=== PATIENT | male | born 1955 | race American Indian/Alaskan Native ===

== ENCOUNTER 2020-05-24 19:30 | Inpatient (IN) | payer MEDICARE, OTHER ==
--- NOTE | 2020-05-24 20:01 | Cat Scan Report ---
CT head/brain wo con INDICATION / CLINICAL INFORMATION: 65 years Male; slurred speech, blurred vision. TECHNIQUE: Routine CT head without contrast. All CT scans at this location are performed using CT dos e reduction for ALARA by means of automated exposure control. COMPARISON: None. FINDINGS: BRAIN / INTRACRANIAL CONTENTS: Small lacunar infarcts seen in the internal capsule region on the righ t, as well as the right thalamus. Age-indeterminate lacunar infarct is seen in the marc leftward of midline as well, in a position to a ffect cortical spinal tract. Well-circumscribed calcification is seen near the parietal-occipital sulcus on the right. This findin g is most likely of no clinical significance. Cavernous malformation might be consideration. Otherwise, no acute hemorrhage, mass effect, midline shift, hydrocephalus, or acute, large territori al infarct. No signs of significant atrophy or chronic infarct. There are mild areas of decreased attenuation in the white matter of the cerebral hemispheres. These are nonspecific findings and may be related to microangiopathy (hypertension, diabetes, atheroscleros is), given the patient's age. CRANIOCERVICAL JUNCTION: No significant abnormality. ORBITS: No significant abnormality of visualized orbits. SINUSES / MASTOIDS: Visualized paranasal sinuses and mastoid air cells are essentially clear. ADDITIONAL FINDINGS: Atherosclerotic disease is seen in the anterior circulation. IMPRESSION: 1. No focal mass, hemorrhage, hydrocephalus, or acute, large territorial infarct. 2. Lacunar-type infarcts as described above. Follow-up with diffusion imaging by MRI, as clinically w arranted. CODE STROKE: Exam Completed (MARINE SERVICES TECHNICIAN/CDT): 05/24/2020 6:46 PM Exam Reviewed (MARINE SERVICES TECHNICIAN/CDT): 6:52 PM Time of Communication (MARINE SERVICES TECHNICIAN/CDT): 6:56 PM Licensed Practitioner Receiving Report: Dr. Stark Signer Name: Joseph Soto MD, III Signed: 05/24/2020 7:56 PM Workstation Name: [facility] [place]
--- NOTE | 2020-05-24 20:06 | Emergency Department Report ---
ED Neuro Deficit HPI - General Chief Complaint: Neuro Symptoms/Deficit Stated Complaint: POSS STROKE Time Seen by Provider: 05/24/20 19:32 Source: patient, EMS Mode of arrival: Stretcher Limitations: No Limitations - History of Present Illness Initial Comments: 65-year-old male, history of hypertension, diabetes, presents to ED with slurred speech. Last known well time at 6 PM. Patient and family noticed that patient speech became slurred. He denies any extremity weakness or headache. Patient reports some intermittent blurred vision. Of note, patient lives with son. He reports his son tested positive for COVID-19 on yesterday. Patient denies any symptoms of cough, shortness of breath, vomiting. Patient denies receiving his COVID-19 vaccine. -: This evening Last Observed Normal: 18:00 Location: speech Presenting Symptoms: Present: Unable to Speak Clearly Place: home Severity: mild Improves With: none Worsens With: none On Anticoagulants: No Associated Symptoms: denies other symptoms. denies: headaches, shortness of breath - Related Data Allergies/Adverse Reactions: Allergies Allergy/AdvReac Type Severity Reaction Status Date / Time No Known Allergies Allergy Unverified 05/24/20 19:31 ED Review of Systems ROS: Stated complaint: POSS STROKE Other details as noted in HPI Comment: All other systems reviewed and negative Constitutional: denies: fever Eyes: vision change Respiratory: denies: cough Neurological: other (Reports slurred speech). denies: headache, weakness, numbness, paresthesias ED Neuro Physical Exam - General Limitations: No Limitations General appearance: alert, in no apparent distress Suspected Stroke: Yes - Head Head exam: Present: atraumatic, normocephalic - Eye Eye exam: Present: normal appearance, EOMI - ENT ENT exam: Present: mucous membranes moist - Neck Neck exam: Present: normal inspection - Respiratory Respiratory exam: Present: normal lung sounds bilaterally. Absent: respiratory distress - Cardiovascular Cardiovascular Exam: Present: regular rate, normal rhythm - GI/Abdominal GI/Abdominal exam: Present: soft. Absent: distended, tenderness - Neurological Exam Neurological exam: Present: alert, oriented X3 - NIHSS Assessment Interval: Baseline 1a. Level of Consciousness: alert/keenly responsive 1b. LOC Questions: answers both correctly 1c. LOC Commands: performs tasks correctly 2. Best Gaze: normal 3. Visual: no visual loss 4. Facial Palsy: normal symmetrical movement 5b. Motor Arm Right: amputation/joint fusion 5a. Motor Arm Left: no drift 6a. Motor Leg Left: no drift 6b. Motor Leg Right: no drift 7. Limb Ataxia: absent 8. Sensory: normal 9. Best Language: no aphasia 10. Dysarthria: mild/moderate dysarthria 11. Extinction/Inattention: no abnormality Total Score: 1 Stroke Severity: Minor Stroke - Psychiatric Psychiatric exam: Present: normal affect, normal mood - Skin Skin exam: Present: warm, dry, intact, normal color ED Course Vital Signs 05/24/20 05/24/20 05/24/20 20:04 20:05 20:16 Temperature 98.2 F Pulse Rate 99 H 98 H Respiratory 16 11 L Rate Blood Pressure 166/85 O2 Sat by Pulse 100 99 Oximetry 05/24/20 05/24/20 05/24/20 20:30 20:46 21:00 Temperature Pulse Rate 97 H 92 H 92 H Respiratory 20 21 22 Rate Blood Pressure 168/78 166/85 138/87 O2 Sat by Pulse 94 98 98 Oximetry 05/24/20 05/24/20 05/24/20 21:16 21:30 21:33 Temperature Pulse Rate 109 H 94 H Respiratory 22 16 18 Rate Blood Pressure 146/82 159/95 O2 Sat by Pulse 98 Oximetry 05/24/20 05/24/20 05/24/20 21:45 22:00 22:16 Temperature Pulse Rate 102 H 91 H 90 Respiratory 20 20 18 Rate Blood Pressure 161/69 161/69 161/69 O2 Sat by Pulse 99 97 Oximetry 05/24/20 05/24/20 05/24/20 22:30 23:00 23:38 Temperature 99.0 F Pulse Rate 90 92 H Respiratory 17 20 Rate Blood Pressure 161/69 161/69 O2 Sat by Pulse 98 Oximetry - Lab Data Result diagrams: 05/24/20 20:03 05/24/20 20:03 Lab Results 05/24/20 05/24/20 05/24/20 Range/Units 20:03 20:03 20:03 WBC 6.7 (4.5-11.0) K/mm3 RBC 4.05 (3.65-5.03) M/mm3 Hgb 11.3 L (11.8-15.2) gm/dl Hct 35.2 L (35.5-45.6) % MCV 87 (84-94) fl MCH 28 (28-32) pg MCHC 32 (32-34) % RDW 14.3 (13.2-15.2) % Plt Count 207 (140-440) K/mm3 Eos % (Auto) Modeling Director Add Manual Diff Complete Total Counted 100 Seg Neuts % (Manual) 56.0 (40.0-70.0) % Lymphocytes % (Manual) 11.0 L (13.4-35.0) % Monocytes % (Manual) 15.0 H (0.0-7.3) % Eosinophils % (Manual) 15.0 H (0.0-4.3) % Basophils % (Manual) 3.0 H (0.0-1.8) % Nucleated RBC % Not Reportable Seg Neutrophils # Man 3.8 (1.8-7.7) K/mm3 Band Neutrophils # 0.0 K/mm3 Lymphocytes # (Manual) 0.7 L (1.2-5.4) K/mm3 Abs React Lymphs (Man) 0.0 K/mm3 Monocytes # (Manual) 1.0 H (0.0-0.8) K/mm3 Eosinophils # (Manual) 1.0 H (0.0-0.4) K/mm3 Basophils # (Manual) 0.2 H (0.0-0.1) K/mm3 Metamyelocytes # 0.0 K/mm3 Myelocytes # 0.0 K/mm3 Promyelocytes # 0.0 K/mm3 Blast Cells # 0.0 K/mm3 WBC Morphology Not Reportable Hypersegmented Neuts Not Reportable Hyposegmented Neuts Not Reportable Hypogranular Neuts Not Reportable Smudge Cells Not Reportable Toxic Granulation Not Reportable Toxic Vacuolation Not Reportable Dohle Bodies Not Reportable Pelger-Huet Anomaly Not Reportable Fercho Rods Not Reportable Platelet Estimate Not Reportable Clumped Platelets Not Reportable Plt Clumps, EDTA Not Reportable Large Platelets Not Reportable Giant Platelets Not Reportable Platelet Satelliting Not Reportable Plt Morphology Comment Not Reportable RBC Morphology Normal Dimorphic RBCs Not Reportable Polychromasia Not Reportable Hypochromasia Not Reportable Poikilocytosis Not Reportable Anisocytosis Not Reportable Microcytosis Not Reportable Macrocytosis Not Reportable Spherocytes Not Reportable Pappenheimer Bodies Not Reportable Sickle Cells Not Reportable Target Cells Not Reportable Tear Drop Cells Not Reportable Ovalocytes Not Reportable Helmet Cells Not Reportable Brum[place] Bodies Not Reportable [place] Rings Not Reportable Marne Cells Not Reportable Bite Cells Not Reportable Crenated Cell Not Reportable Elliptocytes Not Reportable Acanthocytes (Spur) Not Reportable Rouleaux Not Reportable Hemoglobin C Crystals Not Reportable Schistocytes Not Reportable Malaria parasites Not Reportable Johnson Bodies Not Reportable Hem Pathologist Commnt No PT 12.6 (12.2-14.9) Sec. INR 0.96 (0.87-1.13) APTT 28.7 (24.2-36.6) Sec. Thrombin Time 16.9 (15.1-19.6) Sec. Sodium 135 L (137-145) mmol/L Potassium 4.7 (3.6-5.0) mmol/L Chloride 98.9 (98-107) mmol/L Carbon Dioxide 28 (22-30) mmol/L Anion Gap 13 mmol/L BUN 20 (9-20) mg/dL Creatinine 1.1 (0.8-1.3) mg/dL Estimated GFR > 60 ml/min BUN/Creatinine Ratio 18 % Glucose 192 H (75-100) mg/dL Calcium 9.5 (8.4-10.2) mg/dL Total Creatine Kinase 124 (55-170) units/L CK-MB (CK-2) 2.9 (0.0-4.0) ng/mL CK-MB (CK-2) Rel Index 2.3 (0-4) Troponin T 0.015 (0.00-0.029) ng/mL - EKG Data -: EKG Interpreted by Al EKG shows normal: sinus rhythm, axis, intervals, QRS complexes, ST-T waves Rate: normal Interpretation: no acute changes - Radiology Data Radiology results: report reviewed, image reviewed - Medical Decision Making 65-year-old male presents to ED with slurred speech and blurred vision. Patient seen and evaluated immediately by teleneurologist who does not recommend TPA at this time due to NIH of only 1. CT head negative for any acute findings. Patient has no extremity weakness present. Patient will be admitted for further work-up by hospitalist, Dr. Guadarrama. - Differential Diagnosis CVA, TIA, COVID-19 Critical care attestation.: If time is entered above; I have spent that time in minutes in the direct care of this critically ill patient, excluding procedure time. ED Disposition Clinical Impression: CVA (cerebral vascular accident), Suspected 2019 novel coronavirus infection Disposition: OP ADMIT IP TO THIS HOSP Is pt being admited?: Yes Condition: Stable Time of Disposition: 21:49
[2020-05-24 20:12] LABS: Hematocrit 35.2 % (35.5-45.6); Hemoglobin 11.3 gm/dl (11.8-15.2); Mean Corpuscular HGB Conc 32 % (32-34); Mean Corpuscular Volume 87 fl (84-94); Platelet Count 207 K/mm3 (140-440); Red Blood Count 4.05 M/mm3 (3.65-5.03); Red Cell Distribution Width 14.3 % (13.2-15.2)
[2020-05-24 20:27] LABS: Partial Thromboplastin Time 28.7 Sec. (24.2-36.6); Thrombin Time 16.9 Sec. (15.1-19.6)
[2020-05-24 20:31] LABS: Creatine Kinase MB 2.9 ng/mL (0.0-4.0)
[2020-05-24 20:32] LABS: BUN/Creatinine Ratio 18; Blood Urea Nitrogen 20 mg/dL (9-20); Calcium 9.5 mg/dL (8.4-10.2); Hemolysis Index 0
[2020-05-24 20:36] LABS: INR 0.96 (0.87-1.13)
[2020-05-24 21:13] LABS: RBC Morphology Normal; Total Cells Counted 100
[2020-05-24 22:09] LABS: Bacteria,Urine 1+ /HPF (Negative); Bilirubin,Urine NEG (Negative); Blood,Urine NEG (Negative); Color,Urine Straw (Yellow); Mucus,Urine FEW /HPF; Urobilinogen,Urine < 2.0 mg/dL (<2.0)
[2020-05-24] MEDS ORDERED: MAGNESIUM HYDROXIDE (MOM) ORAL LIQD UDC PO PRN ×2 (22:27)
[2020-05-24] MEDS ORDERED: PROMETHAZINE 25 MG RECT SUPP PR PRN (22:27)
[2020-05-24] MEDS ORDERED: DEXTROSE 50% IN WATER (25GM) 50 ML SYRINGE IV PRN (22:27)
[2020-05-24] MEDS ORDERED: MORPHINE 2 MG/1 ML INJ IV PRN ×2 (22:27)
[2020-05-24] MEDS ORDERED: ACETAMINOPHEN 325 MG TAB PO PRN (22:27)
[2020-05-24] MEDS ORDERED: METOCLOPRAMIDE 10 MG TAB PO PRN (22:27)
[2020-05-24] MEDS ORDERED: ONDANSETRON 4 MG/2 ML INJ IV PRN ×2 (22:27)
--- NOTE | 2020-05-24 22:54 | History and Physical Report ---
History of Present Illness Date of examination: 05/24/20 Date of admission: 05/24/20 21:59 Chief complaint: Slurred Speech History of present illness: 65-year-old male with known history of hypertension and diabetes mellitus presents to the emergency room today with complaints of slurred speech. Last well-known time was about 6 PM today. Patient's family had noticed changes in his speech and therefore was brought to the emergency room. He denies any fever or chills no headache or dizziness no diaphoresis, no chest pain or shortness of breath, no nausea vomiting, no diarrhea,, no hematuria or dysuria. Patient complains of intermittent blurry vision. He denies any weakness. Patient denies any recent travel but had been exposed to his son who tested COVI D-19 positive yesterday. Work-up in the emergency room so far has been unremarkable. Patient was evaluated by the neurologist and was deemed not to be a TPA candidate. Patient is being admitted for CVA work-up. Past History Past Medical History: diabetes, hypertension Past Surgical History: No surgical history Social history: no significant social history Family history: no significant family history Medications and Allergies Allergies Allergy/AdvReac Type Severity Reaction Status Date / Time No Known Allergies Allergy Unverified 05/24/20 19:31 Review of Systems Constitutional: no fever, no chills Ears, nose, mouth and throat: no nasal congestion, no sore throat Cardiovascular: no chest pain, no palpitations Respiratory: no cough, no shortness of breath Gastrointestinal: no abdominal pain, no nausea, no vomiting, no diarrhea Genitourinary Male: no dysuria, no hematuria, no nocturia Musculoskeletal: no neck pain, no low back pain Integumentary: no rash, no pruritis Neurological: change in speech, no headaches, no confusion Psychiatric: no anxiety, no depression Exam - Constitutional Vitals: Temp Pulse Resp BP Pulse Ox 98.2 F 90 18 161/69 97 05/24/20 20:05 05/24/20 22:16 05/24/20 22:16 05/24/20 22:16 05/24/20 22:16 General appearance: Present: no acute distress, well-nourished - EENT Eyes: Present: PERRL, EOM intact. Absent: scleral icterus ENT: hearing intact, clear oral mucosa, dentition normal - Neck Neck: Present: supple, normal ROM - Respiratory Respiratory effort: normal Respiratory: bilateral: CTA - Cardiovascular Rhythm: regular Heart Sounds: Present: S1 & S2. Absent: gallop, systolic murmur, diastolic murmur, rub, click - Extremities Extremities: no ischemia, pulses intact, pulses symmetrical, No edema, normal temperature, normal color, Full ROM Peripheral Pulses: within normal limits - Abdominal General gastrointestinal: Present: soft, non-tender, non-distended, normal bowel sounds. Absent: mass - Integumentary Integumentary: Present: clear, warm, dry. Absent: rash - Musculoskeletal Musculoskeletal: strength equal bilaterally - Psychiatric Psychiatric: appropriate mood/affect, intact judgment & insight, memory intact, cooperative - Neurologic Neurologic: CNII-XII intact, no moves all extremities, other (Fluent Speech.) HEART Score - HEART Score Troponin: Troponin T 0.015 ng/mL (0.00-0.029) 05/24/20 20:03 Results - Labs CBC & Chem 7: 05/24/20 20:03 05/24/20 20:03 Labs: Abnormal lab results 05/24/20 05/24/20 Range/Units 20:03 20:03 Hgb 11.3 L (11.8-15.2) gm/dl Hct 35.2 L (35.5-45.6) % Lymphocytes % (Manual) 11.0 L (13.4-35.0) % Monocytes % (Manual) 15.0 H (0.0-7.3) % Eosinophils % (Manual) 15.0 H (0.0-4.3) % Basophils % (Manual) 3.0 H (0.0-1.8) % Lymphocytes # (Manual) 0.7 L (1.2-5.4) K/mm3 Monocytes # (Manual) 1.0 H (0.0-0.8) K/mm3 Eosinophils # (Manual) 1.0 H (0.0-0.4) K/mm3 Basophils # (Manual) 0.2 H (0.0-0.1) K/mm3 Sodium 135 L (137-145) mmol/L Glucose 192 H (75-100) mg/dL Assessment and Plan - Patient Problems (1) CVA (cerebral vascular accident) Current Visit: Yes Status: Acute Plan to address problem: We will admit patient and placed on telemetry. Patient started on daily aspirin and statin. We will schedule for MRI of the brain and carotid Doppler. Consult placed to neurology for evaluation. (2) Hypertension Current Visit: Yes Status: Acute Plan to address problem: We will resume routine home medications and monitor vital signs closely. (3) Diabetes mellitus Current Visit: Yes Status: Acute Plan to address problem: We will monitor Accu-Cheks closely. And placed on sliding scale insulin. (4) Suspected 2019 novel coronavirus infection Current Visit: Yes Status: Acute Plan to address problem: Son had tested positive for COVID-19 yesterday. We will schedule patient for Covid test. (5) DVT prophylaxis Current Visit: Yes Status: Acute Plan to address problem: Patient placed on subcutaneous Lovenox. (6) Full code status Current Visit: Yes Status: Acute Plan to address problem: Patient is a full code.
--- NOTE | 2020-05-24 22:59 | Consultation ---
History of Present Illness History of present illness: [facility] Consult Note # Demographics Consult Type: Acute Stroke Level 2 (4.5-24 hrs) Patient Location: Emergency Room First Name: Dmitry Last Name: Sharath Brooks Age: 65 Gender: Male Time of Initial Page ( Time): 05/24/2020, 19:22 Time of Return Call ( Time): 05/24/2020, 19:23 # HPI History: 65 year-old male presents to the ED after developing slurred speech, right facial weakness, and dizziness at about 6 PM. Upon arrival to the ED, his NIHSS is [address] is negative for acute pathology. # Scores Time of exam and NIHSS (): 05/24/2020, 19:31 Level of Consciousness 1a: [0] = Alert; keenly responsive LOC Questions 1b: [0] = Answers both questions correctly LOC Commands 1c: [0] = Performs both tasks correctly Best Gaze 2: [0] = Normal Visual 3: [0] = No visual loss Facial Palsy 4: [0] = Normal symmetrical movements Motor Arm Left 5a: [0] = No drift Motor Arm Right 5b: [0] = No drift Motor Leg Left 6a: [0] = No drift Motor Leg Right 6b: [0] = No drift Limb Ataxia 7: [0] = Absent Sensory 8: [0] = Normal Best Language 9: [0] = No aphasia Dysarthria 10: [1] = [id number] dysarthria Extinction and Inattention 11: [0] = No abnormality NIHSS Total: 1 # Exam Vitals: vital signs reviewed # PMH-FH-SH Past Medical History: Diabetes, hypertension # Data Head CT: no bleed, per radiologist read # Assessment Impression: Dysarthria - unclear etiology, cannot exclude TIA, minor stroke, or stroke mimic # Plan Thrombolytic/Intervention: NOT IV Thrombolytic or IA Intervention Thrombolytic Exclusion (< 3 hour window): non-disabling deficit Intraarterial Exclusion: non-disabling Labs: CBC, comprehensive metabolic panel, hemoglobin A1c, lipid panel Imaging: (urgency: routine admission): If dysarthria persists without clear cause, consider brain MRI. Medication: aspirin 81 mg daily, start statin with goal of LDL < 70 Other: permissive hypertension, telemetry monitoring, I have discussed my recommendations with the referring provider Disposition: admit Past History Past Medical History: diabetes, hypertension Past Surgical History: No surgical history Social history: no significant social history Family history: no significant family history Medications and Allergies Allergies Allergy/AdvReac Type Severity Reaction Status Date / Time No Known Allergies Allergy Unverified 05/24/20 19:31 Active Meds: Active Medications Acetaminophen (Acetaminophen 325 Mg Tab) 650 mg PO Q4H PRN PRN Reason: Pain, Mild (1-3) Aspirin (Aspirin 325 Mg Tab) 325 mg PO QDAY FARZAD Atorvastatin Calcium (Atorvastatin 40 Mg Tab) 40 mg PO QHS FARZAD Bisacodyl (Bisacodyl 10 Mg Rect Supp) 10 mg NC QDAY PRN PRN Reason: Constipation Dextrose (Dextrose 50% In Water (25gm) 50 Ml Syringe) 0 ml IV Q30MIN PRN; Protocol PRN Reason: Hypoglycemia Enoxaparin Sodium (Enoxaparin 40 Mg/0.4 Ml Inj) 40 mg SUB-Q QDAY@2200 FARZAD; Protocol Insulin Human Lispro (Insulin Lispro 100 Unit/Ml) 0 unit SUB-Q ACHS FARZAD; Protocol Magnesium Hydroxide (Magnesium Hydroxide (Mom) Oral Liqd Udc) 30 ml PO Q4H PRN PRN Reason: Constipation Metoclopramide HCl (Metoclopramide 10 Mg Tab) 10 mg PO Q6H PRN PRN Reason: Nausea And Vomiting Morphine Sulfate (Morphine 2 Mg/1 Ml Inj) 2 mg IV Q4H PRN PRN Reason: Pain, Moderate (4-6) Ondansetron HCl (Ondansetron 4 Mg/2 Ml Inj) 4 mg IV Q8H PRN PRN Reason: Nausea And Vomiting Promethazine HCl (Promethazine 25 Mg Rect Supp) 25 mg NC Q6H PRN PRN Reason: Nausea And Vomiting Sodium Chloride (Sodium Chloride 0.9% 10 Ml Flush Syringe) 10 ml IV BID FARZAD Sodium Chloride (Sodium Chloride 0.9% 10 Ml Flush Syringe) 10 ml IV PRN PRN PRN Reason: LINE FLUSH Physical Examination - Vital Signs Vital Signs: Vital Signs Pulse Resp Pulse Ox 99 H 16 100 05/24/20 20:04 05/24/20 20:04 05/24/20 20:04 Results - Laboratory Findings CBC and BMP: 05/24/20 20:03 05/24/20 20:03 Abnormal Lab Findings: Abnormal Labs 05/24/20 05/24/20 20:03 20:03 Hgb 11.3 L Hct 35.2 L Lymphocytes % (Manual) 11.0 L Monocytes % (Manual) 15.0 H Eosinophils % (Manual) 15.0 H Basophils % (Manual) 3.0 H Lymphocytes # (Manual) 0.7 L Monocytes # (Manual) 1.0 H Eosinophils # (Manual) 1.0 H Basophils # (Manual) 0.2 H Sodium 135 L Glucose 192 H
[2020-05-25] MEDS: ACETAMINOPHEN 325 MG TAB PO PRN (05:14)
[2020-05-25 08:07] LABS: Hematocrit 33.6 % (35.5-45.6); Hemoglobin 10.9 gm/dl (11.8-15.2); Mean Corpuscular HGB Conc 32 % (32-34); Mean Corpuscular Volume 86 fl (84-94); Platelet Count 212 K/mm3 (140-440); Red Blood Count 3.92 M/mm3 (3.65-5.03); Red Cell Distribution Width 14.1 % (13.2-15.2)
[2020-05-25] MEDS: INSULIN LISPRO 100 UNIT/ML SUB-Q SCH ×4 (08:23→23:40)
[2020-05-25 08:25] LABS: BUN/Creatinine Ratio 15; Blood Urea Nitrogen 15 mg/dL (9-20); Calcium 9.2 mg/dL (8.4-10.2); Chol/HDL Ratio 1.47 %; HDL Cholesterol 72 mg/dL (40-59); Hemolysis Index 11; LDL Cholesterol,Direct 35 mg/dL (50-130)
--- NOTE | 2020-05-25 09:08 | Progress Note ---
Assessment and Plan Assessment and plan: Acute CVA. Hypertension DM type 2 Suspected COVID PNA 05/25. F/U MRI brain and carotid US. Cont. ASA and Lipitor. PT eval. follow-up Covid testing. Start dexamethasone empirically until Covid testing resulted. History Interval history: No new issues Hospitalist Physical - Constitutional Vitals: Temp Pulse Resp BP Pulse Ox 101.9 F H 127 H 20 162/92 97 05/25/20 05:00 05/25/20 05:00 05/25/20 05:00 05/25/20 05:00 05/25/20 05:00 General appearance: Present: no acute distress, well-nourished - EENT Eyes: Present: PERRL, EOM intact ENT: hearing intact, clear oral mucosa, dentition normal - Neck Neck: Present: supple, normal ROM - Respiratory Respiratory effort: normal Respiratory: bilateral: CTA - Cardiovascular Rhythm: regular Heart Sounds: Present: S1 & S2. Absent: gallop, rub - Extremities Extremities: no ischemia, No edema, Full ROM - Abdominal General gastrointestinal: soft, non-tender, non-distended, normal bowel sounds - Integumentary Integumentary: Present: clear, warm, dry - Neurologic Neurologic: CNII-XII intact, moves all extremities HEART Score - HEART Score Troponin: Troponin T 0.015 ng/mL (0.00-0.029) 05/24/20 20:03 Results - Labs CBC & Chem 7: 05/25/20 07:23 05/25/20 07:23 Labs: Laboratory Last Values WBC 7.9 K/mm3 (4.5-11.0) 05/25/20 07:23 RBC 3.92 M/mm3 (3.65-5.03) 05/25/20 07:23 Hgb 10.9 gm/dl (11.8-15.2) L 05/25/20 07:23 Hct 33.6 % (35.5-45.6) L 05/25/20 07:23 MCV 86 fl (84-94) 05/25/20 07:23 MCH 28 pg (28-32) 05/25/20 07:23 MCHC 32 % (32-34) 05/25/20 07:23 RDW 14.1 % (13.2-15.2) 05/25/20 07:23 Plt Count 212 K/mm3 (140-440) 05/25/20 07:23 [place] % (Auto) [employer] 05/25/20 07:23 Eos % (Auto) [employer] 05/24/20 20:03 Add Manual Diff Complete 05/24/20 20:03 Total Counted 100 05/24/20 20:03 Seg Neuts % (Manual) 56.0 % (40.0-70.0) 05/24/20 20:03 Lymphocytes % (Manual) 11.0 % (13.4-35.0) L 05/24/20 20:03 Monocytes % (Manual) 15.0 % (0.0-7.3) H 05/24/20 20:03 Eosinophils % (Manual) 15.0 % (0.0-4.3) H 05/24/20 20:03 Basophils % (Manual) 3.0 % (0.0-1.8) H 05/24/20 20:03 Nucleated RBC % Not Reportable 05/24/20 20:03 Seg Neutrophils # Man 3.8 K/mm3 (1.8-7.7) 05/24/20 20:03 Band Neutrophils # 0.0 K/mm3 05/24/20 20:03 Lymphocytes # (Manual) 0.7 K/mm3 (1.2-5.4) L 05/24/20 20:03 Abs React Lymphs (Man) 0.0 K/mm3 05/24/20 20:03 Monocytes # (Manual) 1.0 K/mm3 (0.0-0.8) H 05/24/20 20:03 Eosinophils # (Manual) 1.0 K/mm3 (0.0-0.4) H 05/24/20 20:03 Basophils # (Manual) 0.2 K/mm3 (0.0-0.1) H 05/24/20 20:03 Metamyelocytes # 0.0 K/mm3 05/24/20 20:03 Myelocytes # 0.0 K/mm3 05/24/20 20:03 Promyelocytes # 0.0 K/mm3 05/24/20 20:03 Blast Cells # 0.0 K/mm3 05/24/20 20:03 WBC Morphology Not Reportable 05/24/20 20:03 Hypersegmented Neuts Not Reportable 05/24/20 20:03 Hyposegmented Neuts Not Reportable 05/24/20 20:03 Hypogranular Neuts Not Reportable 05/24/20 20:03 Smudge Cells Not Reportable 05/24/20 20:03 Toxic Granulation Not Reportable 05/24/20 20:03 Toxic Vacuolation Not Reportable 05/24/20 20:03 Dohle Bodies Not Reportable 05/24/20 20:03 Pelger-Huet Anomaly Not Reportable 05/24/20 20:03 Fercho Rods Not Reportable 05/24/20 20:03 Platelet Estimate Not Reportable 05/24/20 20:03 Clumped Platelets Not Reportable 05/24/20 20:03 Plt Clumps, EDTA Not Reportable 05/24/20 20:03 Large Platelets Not Reportable 05/24/20 20:03 Giant Platelets Not Reportable 05/24/20 20:03 Platelet Satelliting Not Reportable 05/24/20 20:03 Plt Morphology Comment Not Reportable 05/24/20 20:03 RBC Morphology Normal 05/24/20 20:03 Dimorphic RBCs Not Reportable 05/24/20 20:03 Polychromasia Not Reportable 05/24/20 20:03 Hypochromasia Not Reportable 05/24/20 20:03 Poikilocytosis Not Reportable 05/24/20 20:03 Anisocytosis Not Reportable 05/24/20 20:03 Microcytosis Not Reportable 05/24/20 20:03 Macrocytosis Not Reportable 05/24/20 20:03 Spherocytes Not Reportable 05/24/20 20:03 Pappenheimer Bodies Not Reportable 05/24/20 20:03 Sickle Cells Not Reportable 05/24/20 20:03 Target Cells Not Reportable 05/24/20 20:03 Tear Drop Cells Not Reportable 05/24/20 20:03 Ovalocytes Not Reportable 05/24/20 20:03 Helmet Cells Not Reportable 05/24/20 20:03 Brumfield-Bullard Bodies Not Reportable 05/24/20 20:03 [place] Rings Not Reportable 05/24/20 20:03 [place] Cells Not Reportable 05/24/20 20:03 Bite Cells Not Reportable 05/24/20 20:03 Crenated Cell Not Reportable 05/24/20 20:03 Elliptocytes Not Reportable 05/24/20 20:03 Acanthocytes (Spur) Not Reportable 05/24/20 20:03 Rouleaux Not Reportable 05/24/20 20:03 Hemoglobin C Crystals Not Reportable 05/24/20 20:03 Schistocytes Not Reportable 05/24/20 20:03 Malaria parasites Not Reportable 05/24/20 20:03 Johnson Bodies Not Reportable 05/24/20 20:03 Hem Pathologist Commnt No 05/24/20 20:03 PT 13.0 Sec. (12.2-14.9) 05/25/20 07:23 INR 1.00 (0.87-1.13) 05/25/20 07:23 APTT 28.7 Sec. (24.2-36.6) 05/24/20 20:03 Thrombin Time 16.9 Sec. (15.1-19.6) 05/24/20 20:03 Sodium 134 mmol/L (137-145) L 05/25/20 07:23 Potassium 4.5 mmol/L (3.6-5.0) 05/25/20 07:23 Chloride 98.8 mmol/L (98-107) 05/25/20 07:23 Carbon Dioxide 24 mmol/L (22-30) 05/25/20 07:23 Anion Gap 16 mmol/L 05/25/20 07:23 BUN 15 mg/dL (9-20) 05/25/20 07:23 Creatinine 1.0 mg/dL (0.8-1.3) 05/25/20 07:23 Estimated GFR > 60 ml/min 05/25/20 07:23 BUN/Creatinine Ratio 15 % 05/25/20 07:23 Glucose 190 mg/dL (75-100) H 05/25/20 07:23 POC Glucose 76 mg/dL (70-105) 05/25/20 00:37 Calcium 9.2 mg/dL (8.4-10.2) 05/25/20 07:23 Total Creatine Kinase 124 units/L (55-170) 05/24/20 20:03 CK-MB (CK-2) 2.9 ng/mL (0.0-4.0) 05/24/20 20:03 CK-MB (CK-2) Rel Index 2.3 (0-4) 05/24/20 20:03 Troponin T 0.015 ng/mL (0.00-0.029) 05/24/20 20:03 Triglycerides 29 mg/dL (2-149) 05/25/20 07:23 Cholesterol 106 mg/dL (50-199) 05/25/20 07:23 LDL Cholesterol Direct 35 mg/dL (50-130) L 05/25/20 07:23 HDL Cholesterol 72 mg/dL (40-59) H 05/25/20 07:23 Cholesterol/HDL Ratio 1.47 % 05/25/20 07:23 Urine Color Straw (Yellow) 05/24/20 Unknown Urine Turbidity Clear (Clear) 05/24/20 Unknown Urine pH 7.0 (5.0-7.0) 05/24/20 Unknown Ur Specific [place] 1.009 (1.003-1.030) 05/24/20 Unknown Urine Protein 30 mg/dl mg/dL (Negative) 05/24/20 Unknown Urine Glucose (UA) 150 mg/dL (Negative) 05/24/20 Unknown Urine Ketones Neg mg/dL (Negative) 05/24/20 Unknown Urine Blood Neg (Negative) 05/24/20 Unknown Urine Nitrite Neg (Negative) 05/24/20 Unknown Urine Bilirubin Neg (Negative) 05/24/20 Unknown Urine Urobilinogen < 2.0 mg/dL (<2.0) 05/24/20 Unknown Ur Leukocyte Esterase Neg (Negative) 05/24/20 Unknown Urine WBC (Auto) 1.0 /HPF (0.0-6.0) 05/24/20 Unknown Urine RBC (Auto) 2.0 /HPF (0.0-6.0) 05/24/20 Unknown U Epithel Cells (Auto) < 1.0 /HPF (0-13.0) 05/24/20 Unknown Urine Bacteria (Auto) 1+ /HPF (Negative) 05/24/20 Unknown Urine Mucus Few /HPF 05/24/20 Unknown Juarez/IV: Voiding Method Toilet Active Medications - Current Medications Current Medications: Generic Name Dose Route Start Last Admin Trade Name Freq PRN Reason Stop Dose Admin Acetaminophen 650 mg 05/24/20 22:27 05/25/20 05:14 Acetaminophen 325 Mg Tab PO 650 mg Q4H PRN Administration Pain, Mild (1-3) Aspirin 325 mg 04/18/21 10:00 Aspirin 325 Mg Tab PO QDAY [facility] Atorvastatin Calcium 40 mg 05/25/20 22:00 Atorvastatin 40 Mg Tab PO QHS [facility] Bisacodyl 10 mg 05/24/20 22:27 Bisacodyl 10 Mg Rect Supp ND QDAY PRN Constipation Dextrose 0 ml 05/24/20 22:27 Dextrose 50% In Water (25gm) 50 Ml Syringe IV Q30MIN PRN Hypoglycemia Protocol Enoxaparin Sodium 40 mg 05/25/20 22:00 Enoxaparin 40 Mg/0.4 Ml Inj SUB-Q QDAY@2200 [facility] Protocol Insulin Human Lispro 0 unit 05/25/20 07:30 05/25/20 08:23 Insulin Lispro 100 Unit/Ml SUB-Q 2 unit ACHS [facility] Administration Protocol Magnesium Hydroxide 30 ml 05/24/20 22:27 Magnesium Hydroxide (Mom) Oral Liqd Udc PO Q4H PRN Constipation Metoclopramide HCl 10 mg 05/24/20 22:27 Metoclopramide 10 Mg Tab PO Q6H PRN Nausea And Vomiting Morphine Sulfate 2 mg 05/24/20 22:27 Morphine 2 Mg/1 Ml Inj IV Q4H PRN Pain, Moderate (4-6) Ondansetron HCl 4 mg 05/24/20 22:27 Ondansetron 4 Mg/2 Ml Inj IV Q8H PRN Nausea And Vomiting Promethazine HCl 25 mg 05/24/20 22:27 Promethazine 25 Mg Rect Supp ND Q6H PRN Nausea And Vomiting Sodium Chloride 10 ml 05/25/20 10:00 Sodium Chloride 0.9% 10 Ml Flush Syringe IV BID [facility] Sodium Chloride 10 ml 05/24/20 22:27 Sodium Chloride 0.9% 10 Ml Flush Syringe IV PRN PRN LINE FLUSH
[2020-05-25 10:33] LABS: Platelet Estimate Consistent w Auto; RBC Morphology Normal; Total Cells Counted 100
[2020-05-25] MEDS: dexAMETHasone 4 MG/ML VIAL IV SCH (11:33)
[2020-05-25] MEDS: ASPIRIN 325 MG TAB PO SCH (11:35)
--- NOTE | 2020-05-25 18:45 | Vascular Lab Report ---
"DUPLEX DOPPLER ULTRASOUND CAROTID, BILATERAL INDICATION / CLINICAL INFORMATION: MAIN. COMPARISON: None available. FINDINGS: RIGHT CAROTID: - PLAQUE ESTIMATE (%): < 50% - CCA velocity: 123 cm/sec. - ICA peak systolic velocity: 135 cm/sec. - ICA/CCA PSV Ratio: 1.2 Right Vertebral Artery: Antegrade flow. LEFT CAROTID: - PLAQUE ESTIMATE: < 50% - CCA velocity: 131 cm/sec. - ICA peak systolic velocity: 139 cm/sec. - ICA/CCA PSV Ratio: 1.1 Left Vertebral Artery: Antegrade flow. IMPRESSION: 1. Right Internal Carotid Artery: Less than 50% diameter stenosis. 2. Left Internal Carotid Artery: Less than 50% diameter stenosis. Velocity criteria are extrapolated from diameter data as defined by the Society of Radiologists [place] [facility] Consensus Conference, Radiology 2003; 229;[id number]. Degree of || ICA PSV || Plaque || ICA/CCA Stenosis (%) || (cm/sec) || estimate (%) || PSV Ratio Normal ............. || ...<125........... || ...None......... || ...<2.0 <50................... || ...<125........... || ......<50......... || ...<2.0 50-69................ || ..125-230...... || ......>50......... || 2.0-4.0 >70 but <100... || >230.............. || .......>50........ || ...>4.0 Near occlusion || High/low/none || ...visible....... || variable Total occlusion || ....None........... || ..no lumen... || ....N/A Signer Name: Vito FERNANDES Signed: 05/25/2020 6:41 PM Workstation Name: [email or web address]"
[2020-05-25] MEDS: ENOXAPARIN 40 MG/0.4 ML INJ SUB-Q SCH (22:48)
[2020-05-26] MEDS: INSULIN LISPRO 100 UNIT/ML SUB-Q SCH ×4 (07:30→23:09)
--- NOTE | 2020-05-26 08:24 | Progress Note ---
Assessment and Plan Assessment and plan: Acute CVA. Hypertension DM type 2 Suspected COVID PNA 05/25. F/U MRI brain and carotid US. Cont. ASA and Lipitor. PT eval. follow-up Covid testing. Start dexamethasone empirically until Covid testing resulted. 05/26. Carotid ultrasound negative. Await MRI brain. Neurology consultation pending. Covid PCR testing on 05/25 is positive. History Interval history: No new issues Hospitalist Physical - Constitutional Vitals: Temp Pulse Resp BP Pulse Ox 98.3 F 100 H 18 156/88 96 05/26/20 05:32 05/26/20 05:32 05/26/20 05:32 05/26/20 05:32 05/26/20 05:32 General appearance: Present: no acute distress, well-nourished - EENT Eyes: Present: PERRL, EOM intact ENT: hearing intact, clear oral mucosa, dentition normal - Neck Neck: Present: supple, normal ROM - Respiratory Respiratory effort: normal Respiratory: bilateral: CTA - Cardiovascular Rhythm: regular Heart Sounds: Present: S1 & S2. Absent: gallop, rub - Extremities Extremities: no ischemia, No edema, Full ROM - Abdominal General gastrointestinal: soft, non-tender, non-distended, normal bowel sounds - Integumentary Integumentary: Present: clear, warm, dry - Neurologic Neurologic: CNII-XII intact, moves all extremities HEART Score - HEART Score Troponin: Troponin T 0.015 ng/mL (0.00-0.029) 05/24/20 20:03 Results - Labs CBC & Chem 7: 05/25/20 07:23 05/25/20 07:23 Labs: Laboratory Last Values WBC 7.9 K/mm3 (4.5-11.0) 05/25/20 07:23 RBC 3.92 M/mm3 (3.65-5.03) 05/25/20 07:23 Hgb 10.9 gm/dl (11.8-15.2) L 05/25/20 07:23 Hct 33.6 % (35.5-45.6) L 05/25/20 07:23 MCV 86 fl (84-94) 05/25/20 07:23 MCH 28 pg (28-32) 05/25/20 07:23 MCHC 32 % (32-34) 05/25/20 07:23 RDW 14.1 % (13.2-15.2) 05/25/20 07:23 Plt Count 212 K/mm3 (140-440) 05/25/20 07:23 [place] % (Auto) Canal Tender 05/25/20 07:23 Eos % (Auto) [place] Tender 05/24/20 20:03 Add Manual Diff Complete 05/25/20 07:23 Total Counted 100 05/25/20 07:23 Seg Neuts % (Manual) 55.0 % (40.0-70.0) 05/25/20 07:23 Lymphocytes % (Manual) 5.0 % (13.4-35.0) L 05/25/20 07:23 Reactive Lymphs % (Man) 1.0 % 05/25/20 07:23 Monocytes % (Manual) 21.0 % (0.0-7.3) H 05/25/20 07:23 Eosinophils % (Manual) 17.0 % (0.0-4.3) H 05/25/20 07:23 Basophils % (Manual) 1.0 % (0.0-1.8) 05/25/20 07:23 Nucleated RBC % Not Reportable 05/25/20 07:23 Seg Neutrophils # Man 4.3 K/mm3 (1.8-7.7) 05/25/20 07:23 Band Neutrophils # 0.0 K/mm3 05/25/20 07:23 Lymphocytes # (Manual) 0.4 K/mm3 (1.2-5.4) L 05/25/20 07:23 Abs React Lymphs (Man) 0.1 K/mm3 05/25/20 07:23 Monocytes # (Manual) 1.7 K/mm3 (0.0-0.8) H 05/25/20 07:23 Eosinophils # (Manual) 1.3 K/mm3 (0.0-0.4) H 05/25/20 07:23 Basophils # (Manual) 0.1 K/mm3 (0.0-0.1) 05/25/20 07:23 Metamyelocytes # 0.0 K/mm3 05/25/20 07:23 Myelocytes # 0.0 K/mm3 05/25/20 07:23 Promyelocytes # 0.0 K/mm3 05/25/20 07:23 Blast Cells # 0.0 K/mm3 05/25/20 07:23 WBC Morphology Not Reportable 05/25/20 07:23 WBC Morphology TNR 05/25/20 07:23 Hypersegmented Neuts Not Reportable 05/25/20 07:23 Hyposegmented Neuts Not Reportable 05/25/20 07:23 Hypogranular Neuts Not Reportable 05/25/20 07:23 Smudge Cells Not Reportable 05/25/20 07:23 Toxic Granulation Not Reportable 05/25/20 07:23 Toxic Vacuolation Not Reportable 05/25/20 07:23 Dohle Bodies Not Reportable 05/25/20 07:23 Pelger-Huet Anomaly Not Reportable 05/25/20 07:23 Fercho Rods Not Reportable 05/25/20 07:23 Platelet Estimate Consistent w auto 05/25/20 07:23 Clumped Platelets Not Reportable 05/25/20 07:23 Plt Clumps, EDTA Not Reportable 05/25/20 07:23 Large Platelets Not Reportable 05/25/20 07:23 Giant Platelets Not Reportable 05/25/20 07:23 Platelet Satelliting Not Reportable 05/25/20 07:23 Plt Morphology Comment Not Reportable 05/25/20 07:23 RBC Morphology Normal 05/25/20 07:23 Dimorphic RBCs Not Reportable 05/25/20 07:23 Polychromasia Not Reportable 05/25/20 07:23 Hypochromasia Not Reportable 05/25/20 07:23 Poikilocytosis Not Reportable 05/25/20 07:23 Anisocytosis Not Reportable 05/25/20 07:23 Microcytosis Not Reportable 05/25/20 07:23 Macrocytosis Not Reportable 05/25/20 07:23 Spherocytes Not Reportable 05/25/20 07:23 Pappenheimer Bodies Not Reportable 05/25/20 07:23 Sickle Cells Not Reportable 05/25/20 07:23 Target Cells Not Reportable 05/25/20 07:23 Tear Drop Cells Not Reportable 05/25/20 07:23 Ovalocytes Not Reportable 05/25/20 07:23 Helmet Cells Not Reportable 05/25/20 07:23 Brum[place] Bodies Not Reportable 05/25/20 07:23 [place] Rings Not Reportable 05/25/20 07:23 [place] Cells Not Reportable 05/25/20 07:23 Bite Cells Not Reportable 05/25/20 07:23 Crenated Cell Not Reportable 05/25/20 07:23 Elliptocytes Not Reportable 05/25/20 07:23 Acanthocytes (Spur) Not Reportable 05/25/20 07:23 Rouleaux Not Reportable 05/25/20 07:23 Hemoglobin C Crystals Not Reportable 05/25/20 07:23 Schistocytes Not Reportable 05/25/20 07:23 Malaria parasites Not Reportable 05/25/20 07:23 Johnson Bodies Not Reportable 05/25/20 07:23 Hem Pathologist Commnt No 05/25/20 07:23 PT 13.0 Sec. (12.2-14.9) 05/25/20 07:23 INR 1.00 (0.87-1.13) 05/25/20 07:23 APTT 28.7 Sec. (24.2-36.6) 05/24/20 20:03 Thrombin Time 16.9 Sec. (15.1-19.6) 05/24/20 20:03 Sodium 134 mmol/L (137-145) L 05/25/20 07:23 Potassium 4.5 mmol/L (3.6-5.0) 05/25/20 07:23 Chloride 98.8 mmol/L (98-107) 05/25/20 07:23 Carbon Dioxide 24 mmol/L (22-30) 05/25/20 07:23 Anion Gap 16 mmol/L 05/25/20 07:23 BUN 15 mg/dL (9-20) 05/25/20 07:23 Creatinine 1.0 mg/dL (0.8-1.3) 05/25/20 07:23 Estimated GFR > 60 ml/min 05/25/20 07:23 BUN/Creatinine Ratio 15 % 05/25/20 07:23 Glucose 190 mg/dL (75-100) H 05/25/20 07:23 POC Glucose 365 mg/dL (70-105) H 05/25/20 22:56 Calcium 9.2 mg/dL (8.4-10.2) 05/25/20 07:23 Total Creatine Kinase 124 units/L (55-170) 05/24/20 20:03 CK-MB (CK-2) 2.9 ng/mL (0.0-4.0) 05/24/20 20:03 CK-MB (CK-2) Rel Index 2.3 (0-4) 05/24/20 20:03 Troponin T 0.015 ng/mL (0.00-0.029) 05/24/20 20:03 Triglycerides 29 mg/dL (2-149) 05/25/20 07:23 Cholesterol 106 mg/dL (50-199) 05/25/20 07:23 LDL Cholesterol Direct 35 mg/dL (50-130) L 05/25/20 07:23 HDL Cholesterol 72 mg/dL (40-59) H 05/25/20 07:23 Cholesterol/HDL Ratio 1.47 % 05/25/20 07:23 Urine Color Straw (Yellow) 05/24/20 Unknown Urine Turbidity Clear (Clear) 05/24/20 Unknown Urine pH 7.0 (5.0-7.0) 05/24/20 Unknown Ur Specific [place] 1.009 (1.003-1.030) 05/24/20 Unknown Urine Protein 30 mg/dl mg/dL (Negative) 05/24/20 Unknown Urine Glucose (UA) 150 mg/dL (Negative) 05/24/20 Unknown Urine Ketones Neg mg/dL (Negative) 05/24/20 Unknown Urine Blood Neg (Negative) 05/24/20 Unknown Urine Nitrite Neg (Negative) 05/24/20 Unknown Urine Bilirubin Neg (Negative) 05/24/20 Unknown Urine Urobilinogen < 2.0 mg/dL (<2.0) 05/24/20 Unknown Ur Leukocyte Esterase Neg (Negative) 05/24/20 Unknown Urine WBC (Auto) 1.0 /HPF (0.0-6.0) 05/24/20 Unknown Urine RBC (Auto) 2.0 /HPF (0.0-6.0) 05/24/20 Unknown U Epithel Cells (Auto) < 1.0 /HPF (0-13.0) 05/24/20 Unknown Urine Bacteria (Auto) 1+ /HPF (Negative) 05/24/20 Unknown Urine Mucus Few /HPF 05/24/20 Unknown Coronavirus (PCR) Positive (Negative) A 05/25/20 Unknown Juarez/IV: Voiding Method Condom Catheter Active Medications - Current Medications Current Medications: Generic Name Dose Route Start Last Admin Trade Name Freq PRN Reason Stop Dose Admin Acetaminophen 650 mg 05/24/20 22:27 05/25/20 05:14 Acetaminophen 325 Mg Tab PO 650 mg Q4H PRN Administration Pain, Mild (1-3) Aspirin 325 mg 05/25/20 10:00 05/25/20 11:35 Aspirin 325 Mg Tab PO 325 mg QDAY [facility]AD Administration Atorvastatin Calcium 40 mg 05/25/20 22:00 05/25/20 22:48 Atorvastatin 40 Mg Tab PO 40 mg QHS [facility]AR[facility]AD Administration Bisacodyl 10 mg 05/24/20 22:27 Bisacodyl 10 Mg Rect Supp MS QDAY PRN Constipation Dexamethasone 6 mg 05/25/20 10:00 05/25/20 11:33 Dexamethasone 4 Mg/Ml Vial IV 06/03/20 10:01 6 mg DAILY FARZAD Administration Dextrose 0 ml 05/24/20 22:27 Dextrose 50% In Water (25gm) 50 Ml Syringe IV Q30MIN PRN Hypoglycemia Protocol Enoxaparin Sodium 40 mg 05/25/20 22:00 05/25/20 22:48 Enoxaparin 40 Mg/0.4 Ml Inj SUB-Q 40 mg QDAY@2200 [facility] Administration Protocol Insulin Human Lispro 0 unit 05/25/20 07:30 05/25/20 23:40 Insulin Lispro 100 Unit/Ml SUB-Q 8 unit ACHS [facility] Administration Protocol Magnesium Hydroxide 30 ml 05/24/20 22:27 Magnesium Hydroxide (Mom) Oral Liqd Udc PO Q4H PRN Constipation Metoclopramide HCl 10 mg 05/24/20 22:27 Metoclopramide 10 Mg Tab PO Q6H PRN Nausea And Vomiting Morphine Sulfate 2 mg 05/24/20 22:27 Morphine 2 Mg/1 Ml Inj IV Q4H PRN Pain, Moderate (4-6) Ondansetron HCl 4 mg 05/24/20 22:27 Ondansetron 4 Mg/2 Ml Inj IV Q8H PRN Nausea And Vomiting Promethazine HCl 25 mg 05/24/20 22:27 Promethazine 25 Mg Rect Supp MS Q6H PRN Nausea And Vomiting Sodium Chloride 10 ml 05/25/20 10:00 05/25/20 22:48 Sodium Chloride 0.9% 10 Ml Flush Syringe IV 10 ml BID FARZAD Administration Sodium Chloride 10 ml 05/24/20 22:27 Sodium Chloride 0.9% 10 Ml Flush Syringe IV PRN PRN LINE FLUSH Nutrition/Malnutrition Assess - Dietary Evaluation Nutrition/Malnutrition Findings: Nutrition Notes Start: 05/25/20 11:32 Freq: Status: Active Protocol: Document 05/25/20 11:32 LP (Rec: 05/25/20 11:33 LP [id number]) Nutrition Notes Need for Assessment generated from: MD Order Initial or Follow up Brief Note Current Diagnosis Diabetes,Hypertension Other Pertinent Diagnosis suspected COVID Subjective/Other Information Consult for diet education. Pt suspected COVID and did not answer phone. Nutrition Intervention Follow-Up By: 05/27/20 Additional Comments Follow for diet education
[2020-05-26] MEDS: dexAMETHasone 4 MG/ML VIAL IV SCH (09:03)
[2020-05-26] MEDS: ASPIRIN 325 MG TAB PO SCH (09:04)
--- NOTE | 2020-05-26 10:37 | Consultation ---
History of Present Illness - Reason for Consult Consult date: 05/26/20 - History of Present Illness 65-year-old man past medical history hypertension, diabetes presented to hospital with complaints of slurred speech. Family was nearby when the change happened, and he was brought to the emergency room immediately. Otherwise denies any symptoms. His son does a positive Covid day prior to admission. Febrile to 101.9 with a white count 7.9. Covid positive. Normal renal function, pending procalcitonin. Imaging personally reviewed: Head CT: Lacunar infarcts Review of systems: Deferred to reduce to the risk of transmission of COVID-19 Past History Past Medical History: diabetes, hypertension Past Surgical History: No surgical history Social history: no significant social history Family history: no significant family history Medications and Allergies Allergies Allergy/AdvReac Type Severity Reaction Status Date / Time No Known Allergies Allergy Unverified 05/24/20 19:31 Home Medications Medication Instructions Recorded Confirmed Last Taken Type No Known Home Medications [No 05/26/20 05/26/20 Unknown History Reported Home Medications] Active Meds: Active Medications Acetaminophen (Acetaminophen 325 Mg Tab) 650 mg PO Q4H PRN PRN Reason: Pain, Mild (1-3) Last Admin: 05/25/20 05:14 Dose: 650 mg Documented by: Aspirin (Aspirin 325 Mg Tab) 325 mg PO QDAY [facility] Last Admin: 05/26/20 09:04 Dose: 325 mg Documented by: Atorvastatin Calcium (Atorvastatin 40 Mg Tab) 40 mg PO QHS [facility] Last Admin: 05/25/20 22:48 Dose: 40 mg Documented by: Bisacodyl (Bisacodyl 10 Mg Rect Supp) 10 mg OK QDAY PRN PRN Reason: Constipation Dexamethasone (Dexamethasone 4 Mg/Ml Vial) 6 mg IV DAILY [facility] Stop: 06/03/20 10:01 Last Admin: 05/26/20 09:03 Dose: 6 mg Documented by: Dextrose (Dextrose 50% In Water (25gm) 50 Ml Syringe) 0 ml IV Q30MIN PRN; Protocol PRN Reason: Hypoglycemia Enoxaparin Sodium (Enoxaparin 40 Mg/0.4 Ml Inj) 40 mg SUB-Q QDAY@2200 FARZAD; Protocol Last Admin: 05/25/20 22:48 Dose: 40 mg Documented by: Insulin Human Lispro (Insulin Lispro 100 Unit/Ml) 0 unit SUB-Q ACHS [facility]; Protocol Last Admin: 05/26/20 07:30 Dose: 3 unit Documented by: Magnesium Hydroxide (Magnesium Hydroxide (Mom) Oral Liqd Udc) 30 ml PO Q4H PRN PRN Reason: Constipation Metoclopramide HCl (Metoclopramide 10 Mg Tab) 10 mg PO Q6H PRN PRN Reason: Nausea And Vomiting Morphine Sulfate (Morphine 2 Mg/1 Ml Inj) 2 mg IV Q4H PRN PRN Reason: Pain, Moderate (4-6) Ondansetron HCl (Ondansetron 4 Mg/2 Ml Inj) 4 mg IV Q8H PRN PRN Reason: Nausea And Vomiting Promethazine HCl (Promethazine 25 Mg Rect Supp) 25 mg OK Q6H PRN PRN Reason: Nausea And Vomiting Sodium Chloride (Sodium Chloride 0.9% 10 Ml Flush Syringe) 10 ml IV BID [facility] Last Admin: 05/26/20 09:05 Dose: 10 ml Documented by: Sodium Chloride (Sodium Chloride 0.9% 10 Ml Flush Syringe) 10 ml IV PRN PRN PRN Reason: LINE FLUSH Physical Examination - Physical Exam Narrative exam: Physical exam deferred to reduce risk of transmission of COVID-19. Please refer to primary team's note. - Constitutional Vitals: Vital Signs Temp Pulse Resp BP Pulse Ox 98.3 F 100 H 18 156/88 96 05/26/20 05:32 05/26/20 05:32 05/26/20 05:32 05/26/20 05:32 05/26/20 05:32 Temperature -Last 24 Hours Temperature 98.3 F Temperature 99.0 F Temperature 98.3 F Temperature 98.4 F Results - Labs CBC & Chem 7: 05/25/20 07:23 05/25/20 07:23 Labs: Abnormal lab results 05/25/20 05/25/20 05/25/20 Range/Units 07:23 11:22 16:45 Lymphocytes % (Manual) 5.0 L (13.4-35.0) % Monocytes % (Manual) 21.0 H (0.0-7.3) % Eosinophils % (Manual) 17.0 H (0.0-4.3) % Lymphocytes # (Manual) 0.4 L (1.2-5.4) K/mm3 Monocytes # (Manual) 1.7 H (0.0-0.8) K/mm3 Eosinophils # (Manual) 1.3 H (0.0-0.4) K/mm3 POC Glucose 235 H 348 H (70-105) mg/dL Coronavirus (PCR) (Negative) 05/25/20 05/25/20 05/26/20 Range/Units 22:56 Unknown 07:54 Lymphocytes % (Manual) (13.4-35.0) % Monocytes % (Manual) (0.0-7.3) % Eosinophils % (Manual) (0.0-4.3) % Lymphocytes # (Manual) (1.2-5.4) K/mm3 Monocytes # (Manual) (0.0-0.8) K/mm3 Eosinophils # (Manual) (0.0-0.4) K/mm3 POC Glucose 365 H 224 H (70-105) mg/dL Coronavirus (PCR) Positive A (Negative) Assessment and Plan Cultures: COVID PCR: positive A/P: 65 yo M PMHx HTN, DM2 presents with CVA, found to have COVID-19 #COVID-19: Son was recently diagnosed as was he. He is not hypoxic presently, though given recent spread would closely monitor for respiratory deterioration. At present no need for therapy. #Acute CVA: with slurred speech. COVID-19 can cause thrombosis, though he does have traditional risk factors such as HTN and DM2. #Diabetes: tight glycemic control for best outcomes. Recs: -No need for COVID-19 specific therapies or antibiotics at present. -If he becomes hypoxic please start dexamethasone 6mg daily. IF he requires supplemental O2 please start Remdesivir -Obtain q48-72h inflammatory markers - ferritin, Ddimer, CRP, LDH -Anticoagulation per hospital protocol Thank you for the consult, we will continue to follow. Keshia Perez MD [facility] ([facility]) O: [phone] F: [phone]
--- NOTE | 2020-05-26 13:42 | Electrocardiograph Report ---
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
--- NOTE | 2020-05-26 13:46 | Electrocardiograph Report ---
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
[2020-05-26] MEDS: ENOXAPARIN 40 MG/0.4 ML INJ SUB-Q SCH (23:08)
[2020-05-27 06:49] LABS: Hematocrit 41.2 % (35.5-45.6); Hemoglobin 13.2 gm/dl (11.8-15.2); Mean Corpuscular HGB Conc 32 % (32-34); Mean Corpuscular Volume 86 fl (84-94); Platelet Count 200 K/mm3 (140-440); Red Blood Count 4.77 M/mm3 (3.65-5.03); Red Cell Distribution Width 14.9 % (13.2-15.2)
[2020-05-27 07:02] LABS: BUN/Creatinine Ratio 21; Blood Urea Nitrogen 27 mg/dL (9-20); Calcium 9.8 mg/dL (8.4-10.2); Hemolysis Index 21
--- NOTE | 2020-05-27 07:20 | Progress Note ---
Assessment and Plan Assessment and plan: Acute CVA. Hypertension DM type 2 Suspected COVID PNA 05/25. F/U MRI brain and carotid US. Cont. ASA and Lipitor. PT eval. follow-up Covid testing. Start dexamethasone empirically until Covid testing resulted. 05/26. Carotid ultrasound negative. Await MRI brain. Neurology consultation pending. Covid PCR testing on 05/25 is positive. 05/27/2020; CT head, carotid Doppler, echo unremarkable. MRI and EEG evaluation is pending. Patient is positive for Covid does not have any symptoms. She was evaluated by ID and no treatment is needed. Was evaluated by physical therapy recommend acute rehab. Disposition; acute rehab after neurology evaluation and MRI completed. History Interval history: Patient was seen and evaluated this morning No new complaints overnight Hospitalist Physical - Physical exam Narrative exam: Not in cardiopulmonary distress. The patient appeared well nourished and normally developed. Vital signs as documented. Head exam is unremarkable. No scleral icterus . Neck is without jugular venous distension, thyromegaly, or carotid bruits. Lungs are clear to auscultation. Cardiac exam reveals regular rate and Rhythm. Abdominal exam reveals normal bowel sounds, nontender, no organomegaly. Extremities are nonedematous and both femoral and pedal pulses are normal. 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 No focal weakness. - Constitutional Vitals: Temp Pulse Resp BP Pulse Ox 98.2 F 89 18 139/86 99 05/26/20 23:44 05/26/20 23:44 05/26/20 23:44 05/26/20 23:44 05/26/20 23:44 General appearance: Present: no acute distress, well-nourished HEART Score - HEART Score Troponin: Troponin T 0.015 ng/mL (0.00-0.029) 05/24/20 20:03 Results - Labs CBC & Chem 7: 05/27/20 06:14 05/27/20 06:14 Labs: Laboratory Last Values WBC 9.7 K/mm3 (4.5-11.0) 05/27/20 06:14 RBC 4.77 M/mm3 (3.65-5.03) 05/27/20 06:14 Hgb 13.2 gm/dl (11.8-15.2) 05/27/20 06:14 Hct 41.2 % (35.5-45.6) D 05/27/20 06:14 MCV 86 fl (84-94) 05/27/20 06:14 MCH 28 pg (28-32) 05/27/20 06:14 MCHC 32 % (32-34) 05/27/20 06:14 RDW 14.9 % (13.2-15.2) 05/27/20 06:14 Plt Count 200 K/mm3 (140-440) 05/27/20 06:14 Swain % (Auto) Home Restoration Service Cleaner 05/27/20 06:14 Eos % (Auto) Home Restoration Service Cleaner 05/24/20 20:03 Add Manual Diff Complete 05/25/20 07:23 Total Counted 100 05/25/20 07:23 Seg Neuts % (Manual) 55.0 % (40.0-70.0) 05/25/20 07:23 Lymphocytes % (Manual) 5.0 % (13.4-35.0) L 05/25/20 07:23 Reactive Lymphs % (Man) 1.0 % 05/25/20 07:23 Monocytes % (Manual) 21.0 % (0.0-7.3) H 05/25/20 07:23 Eosinophils % (Manual) 17.0 % (0.0-4.3) H 05/25/20 07:23 Basophils % (Manual) 1.0 % (0.0-1.8) 05/25/20 07:23 Nucleated RBC % Not Reportable 05/25/20 07:23 Seg Neutrophils # Man 4.3 K/mm3 (1.8-7.7) 05/25/20 07:23 Band Neutrophils # 0.0 K/mm3 05/25/20 07:23 Lymphocytes # (Manual) 0.4 K/mm3 (1.2-5.4) L 05/25/20 07:23 Abs React Lymphs (Man) 0.1 K/mm3 05/25/20 07:23 Monocytes # (Manual) 1.7 K/mm3 (0.0-0.8) H 05/25/20 07:23 Eosinophils # (Manual) 1.3 K/mm3 (0.0-0.4) H 05/25/20 07:23 Basophils # (Manual) 0.1 K/mm3 (0.0-0.1) 05/25/20 07:23 Metamyelocytes # 0.0 K/mm3 05/25/20 07:23 Myelocytes # 0.0 K/mm3 05/25/20 07:23 Promyelocytes # 0.0 K/mm3 05/25/20 07:23 Blast Cells # 0.0 K/mm3 05/25/20 07:23 WBC Morphology Not Reportable 05/25/20 07:23 WBC Morphology TNR 05/25/20 07:23 Hypersegmented Neuts Not Reportable 05/25/20 07:23 Hyposegmented Neuts Not Reportable 05/25/20 07:23 Hypogranular Neuts Not Reportable 05/25/20 07:23 Smudge Cells Not Reportable 05/25/20 07:23 Toxic Granulation Not Reportable 05/25/20 07:23 Toxic Vacuolation Not Reportable 05/25/20 07:23 Dohle Bodies Not Reportable 05/25/20 07:23 Pelger-Huet Anomaly Not Reportable 05/25/20 07:23 Fercho Rods Not Reportable 05/25/20 07:23 Platelet Estimate Consistent w auto 05/25/20 07:23 Clumped Platelets Not Reportable 05/25/20 07:23 Plt Clumps, EDTA Not Reportable 05/25/20 07:23 Large Platelets Not Reportable 05/25/20 07:23 Giant Platelets Not Reportable 05/25/20 07:23 Platelet Satelliting Not Reportable 05/25/20 07:23 Plt Morphology Comment Not Reportable 05/25/20 07:23 RBC Morphology Normal 05/25/20 07:23 Dimorphic RBCs Not Reportable 05/25/20 07:23 Polychromasia Not Reportable 05/25/20 07:23 Hypochromasia Not Reportable 05/25/20 07:23 Poikilocytosis Not Reportable 05/25/20 07:23 Anisocytosis Not Reportable 05/25/20 07:23 Microcytosis Not Reportable 05/25/20 07:23 Macrocytosis Not Reportable 05/25/20 07:23 Spherocytes Not Reportable 05/25/20 07:23 Pappenheimer Bodies Not Reportable 05/25/20 07:23 Sickle Cells Not Reportable 05/25/20 07:23 Target Cells Not Reportable 05/25/20 07:23 Tear Drop Cells Not Reportable 05/25/20 07:23 Ovalocytes Not Reportable 05/25/20 07:23 Helmet Cells Not Reportable 05/25/20 07:23 Brumfield-Coeburn Bodies Not Reportable 05/25/20 07:23 [place] Rings Not Reportable 05/25/20 07:23 Hastings Cells Not Reportable 05/25/20 07:23 Bite Cells Not Reportable 05/25/20 07:23 Crenated Cell Not Reportable 05/25/20 07:23 Elliptocytes Not Reportable 05/25/20 07:23 Acanthocytes (Spur) Not Reportable 05/25/20 07:23 Rouleaux Not Reportable 05/25/20 07:23 Hemoglobin C Crystals Not Reportable 05/25/20 07:23 Schistocytes Not Reportable 05/25/20 07:23 Malaria parasites Not Reportable 05/25/20 07:23 Johnson Bodies Not Reportable 05/25/20 07:23 Hem Pathologist Commnt No 05/25/20 07:23 PT 13.0 Sec. (12.2-14.9) 05/25/20 07:23 INR 1.00 (0.87-1.13) 05/25/20 07:23 APTT 28.7 Sec. (24.2-36.6) 05/24/20 20:03 Thrombin Time 16.9 Sec. (15.1-19.6) 05/24/20 20:03 Sodium 136 mmol/L (137-145) L 05/27/20 06:14 Potassium 4.5 mmol/L (3.6-5.0) 05/27/20 06:14 Chloride 98.9 mmol/L (98-107) 05/27/20 06:14 Carbon Dioxide 27 mmol/L (22-30) 05/27/20 06:14 Anion Gap 15 mmol/L 05/27/20 06:14 BUN 27 mg/dL (9-20) H 05/27/20 06:14 Creatinine 1.3 mg/dL (0.8-1.3) 05/27/20 06:14 Estimated GFR > 60 ml/min 05/27/20 06:14 BUN/Creatinine Ratio 21 % 05/27/20 06:14 Glucose 189 mg/dL (75-100) H 05/27/20 06:14 POC Glucose 336 mg/dL (70-105) H 05/26/20 21:28 Calcium 9.8 mg/dL (8.4-10.2) 05/27/20 06:14 Total Creatine Kinase 124 units/L (55-170) 05/24/20 20:03 CK-MB (CK-2) 2.9 ng/mL (0.0-4.0) 05/24/20 20:03 CK-MB (CK-2) Rel Index 2.3 (0-4) 05/24/20 20:03 Troponin T 0.015 ng/mL (0.00-0.029) 05/24/20 20:03 Triglycerides 29 mg/dL (2-149) 05/25/20 07:23 Cholesterol 106 mg/dL (50-199) 05/25/20 07:23 LDL Cholesterol Direct 35 mg/dL (50-130) L 05/25/20 07:23 HDL Cholesterol 72 mg/dL (40-59) H 05/25/20 07:23 Cholesterol/HDL Ratio 1.47 % 05/25/20 07:23 Urine Color Straw (Yellow) 05/24/20 Unknown Urine Turbidity Clear (Clear) 05/24/20 Unknown Urine pH 7.0 (5.0-7.0) 05/24/20 Unknown Ur Specific [place] 1.009 (1.003-1.030) 05/24/20 Unknown Urine Protein 30 mg/dl mg/dL (Negative) 05/24/20 Unknown Urine Glucose (UA) 150 mg/dL (Negative) 05/24/20 Unknown Urine Ketones Neg mg/dL (Negative) 05/24/20 Unknown Urine Blood Neg (Negative) 05/24/20 Unknown Urine Nitrite Neg (Negative) 05/24/20 Unknown Urine Bilirubin Neg (Negative) 05/24/20 Unknown Urine Urobilinogen < 2.0 mg/dL (<2.0) 05/24/20 Unknown Ur Leukocyte Esterase Neg (Negative) 05/24/20 Unknown Urine WBC (Auto) 1.0 /HPF (0.0-6.0) 05/24/20 Unknown Urine RBC (Auto) 2.0 /HPF (0.0-6.0) 05/24/20 Unknown U Epithel Cells (Auto) < 1.0 /HPF (0-13.0) 05/24/20 Unknown Urine Bacteria (Auto) 1+ /HPF (Negative) 05/24/20 Unknown Urine Mucus Few /HPF 05/24/20 Unknown Coronavirus (PCR) Positive (Negative) A 05/25/20 Unknown Juarez/IV: Voiding Method Urinal Active Medications - Current Medications Current Medications: Generic Name Dose Route Start Last Admin Trade Name Freq PRN Reason Stop Dose Admin Acetaminophen 650 mg 05/24/20 22:27 05/25/20 05:14 Acetaminophen 325 Mg Tab PO 650 mg Q4H PRN Administration Pain, Mild (1-3) Aspirin 325 mg 05/25/20 10:00 05/26/20 09:04 Aspirin 325 Mg Tab PO 325 mg QDAY FARZAD Administration Atorvastatin Calcium 40 mg 05/25/20 22:00 05/26/20 23:09 Atorvastatin 40 Mg Tab PO 40 mg QHS FARZAD Administration Bisacodyl 10 mg 05/24/20 22:27 Bisacodyl 10 Mg Rect Supp [place] QDAY PRN Constipation Dexamethasone 6 mg 05/25/20 10:00 05/26/20 09:03 Dexamethasone 4 Mg/Ml Vial IV 06/03/20 10:01 6 mg DAILY FARZAD Administration Dextrose 0 ml 05/24/20 22:27 Dextrose 50% In Water (25gm) 50 Ml Syringe IV Q30MIN PRN Hypoglycemia Protocol Enoxaparin Sodium 40 mg 05/25/20 22:00 05/26/20 23:08 Enoxaparin 40 Mg/0.4 Ml Inj SUB-Q 40 mg QDAY@2200 FARZAD Administration Protocol Insulin Human Lispro 0 unit 05/25/20 07:30 05/26/20 23:09 Insulin Lispro 100 Unit/Ml SUB-Q 8 unit ACHS FARZAD Administration Protocol Magnesium Hydroxide 30 ml 05/24/20 22:27 Magnesium Hydroxide (Mom) Oral Liqd Udc PO Q4H PRN Constipation Metoclopramide HCl 10 mg 05/24/20 22:27 05/26/20 23:22 Metoclopramide 10 Mg Tab PO 10 mg Q6H PRN Administration Nausea And Vomiting Morphine Sulfate 2 mg 05/24/20 22:27 Morphine 2 Mg/1 Ml Inj IV Q4H PRN Pain, Moderate (4-6) Ondansetron HCl 4 mg 05/24/20 22:27 Ondansetron 4 Mg/2 Ml Inj IV Q8H PRN Nausea And Vomiting Promethazine HCl 25 mg 05/24/20 22:27 Promethazine 25 Mg Rect Supp [place] Q6H PRN Nausea And Vomiting Sodium Chloride 10 ml 05/25/20 10:00 05/26/20 23:11 Sodium Chloride 0.9% 10 Ml Flush Syringe IV 10 ml BID FARZAD Administration Sodium Chloride 10 ml 05/24/20 22:27 Sodium Chloride 0.9% 10 Ml Flush Syringe IV PRN PRN LINE FLUSH Nutrition/Malnutrition Assess - Dietary Evaluation Nutrition/Malnutrition Findings: Nutrition Notes Start: 05/25/20 11:32 Freq: Status: Active Protocol: Document 05/25/20 11:32 LP (Rec: 05/25/20 11:33 LP [id number]) Nutrition Notes Need for Assessment generated from: MD Order Initial or Follow up Brief Note Current Diagnosis Diabetes,Hypertension Other Pertinent Diagnosis suspected COVID Subjective/Other Information Consult for diet education. Pt suspected COVID and did not answer phone. Nutrition Intervention Follow-Up By: 05/27/20 Additional Comments Follow for diet education
[2020-05-27] MEDS: INSULIN LISPRO 100 UNIT/ML SUB-Q SCH ×4 (07:30→22:36)
[2020-05-27 07:51] LABS: Total Cells Counted 100
[2020-05-27 07:52] LABS: Platelet Estimate Consistent w Auto; RBC Morphology Normal
--- NOTE | 2020-05-27 10:07 | Magnetic Resonance Report ---
MRI BRAIN WITHOUT CONTRAST INDICATION / CLINICAL INFORMATION: MAIN. Leg weakness TECHNIQUE: Multisequence, multiplanar images were obtained. COMPARISON: CT head dated 05/24/2020 FINDINGS: CEREBRAL and CEREBELLAR HEMISPHERES: An approximate 1.5 x 0.7 cm focus of diffusion restriction is id entified in the right posterior gangliocapsular region consistent with subacute ischemia. No addition al areas of diffusion restriction are identified. No midline shift. No acute hemorrhage. No extra-ax ial fluid collection. Tiny chronic lacunar infarcts in the right thalamus, genu of the right interna l capsule, body of the left corpus callosum and left marc are noted and unchanged. Mild cortical volu me loss and mild chronic microangiopathy in the white matter are noted. VENTRICLES: Normal in size and configuration for age. VISUALIZED ORBITS: No significant abnormality. VISUALIZED PARANASAL SINUSES: No significant abnormality. ADDITIONAL FINDINGS: None. IMPRESSION: 1.5 x 0.7 cm subacute ischemic infarct in the right gangliocapsular region as described. No evidence for hemorrhage or mass effect. Chronic focal infarcts in the right thalamus, genu of the right internal capsule, body of the left co rpus callosum and left marc. Age-related volume loss and chronic white matter changes. Signer Name: Frandy Alba Jr, MD Signed: 05/27/2020 10:02 AM Workstation Name: [id number]
[2020-05-27] MEDS: ASPIRIN 325 MG TAB PO SCH (10:23)
[2020-05-27] MEDS: dexAMETHasone 4 MG/ML VIAL IV SCH (10:23)
--- NOTE | 2020-05-27 11:28 | Progress Note ---
Assessment and Plan Cultures: COVID PCR: positive A/P: 65 yo M PMHx HTN, DM2 presents with CVA, found to have COVID-19 #COVID-19: Son was recently diagnosed as was he. He is not hypoxic presently, though given recent spread would closely monitor for respiratory deterioration. At present no need for therapy. #Acute CVA: with slurred speech. COVID-19 can cause thrombosis, though he does have traditional risk factors such as HTN and DM2. Pending MRI #Diabetes: tight glycemic control for best outcomes. Recs: -No need for COVID-19 specific therapies or antibiotics at present. -If he becomes hypoxic please start dexamethasone 6mg daily. If he requires supplemental O2 please start Remdesivir -Obtain q48-72h inflammatory markers - ferritin, Ddimer, CRP, LDH -Anticoagulation per hospital protocol Thank you for the consult, we will continue to follow. Keshia Perez MD [facility] ([facility]) O: [phone] F: [phone] Subjective Date of service: 05/27/20 Interval history: Afebrile, normal white count. Objective - Exam Narrative Exam: Physical exam deferred to reduce risk of transmission of COVID-19. Please refer to primary team's note. - Constitutional Vitals: Vital Signs Temp Pulse Resp BP Pulse Ox 98.1 F 95 H 20 158/97 100 05/27/20 06:04 05/27/20 06:04 05/27/20 06:04 05/27/20 06:04 05/27/20 06:04 Temperature -Last 24 Hours Temperature 98.1 F Temperature 98.2 F Temperature 98.4 F - Labs CBC & Chem 7: 05/27/20 06:14 05/27/20 06:14 Labs: Abnormal lab results 05/26/20 05/26/20 05/26/20 Range/Units 11:10 18:31 18:44 Monocytes % (Manual) (0.0-7.3) % Monocytes # (Manual) (0.0-0.8) K/mm3 Sodium (137-145) mmol/L BUN (9-20) mg/dL Glucose 513 H* (75-100) mg/dL POC Glucose 271 H 510 H (70-105) mg/dL 04/05/27/20 05/27/20 Range/Units 21:28 06:14 06:14 Monocytes % (Manual) 12.0 H (0.0-7.3) % Monocytes # (Manual) 1.2 H (0.0-0.8) K/mm3 Sodium 136 L (137-145) mmol/L BUN 27 H (9-20) mg/dL Glucose 189 H (75-100) mg/dL POC Glucose 336 H (70-105) mg/dL
[2020-05-27] MEDS: ENOXAPARIN 40 MG/0.4 ML INJ SUB-Q SCH (22:48)
[2020-05-28] MEDS ORDERED: INSULIN GLARGINE 100 UNITS/ML SUB-Q ONE (08:00)
--- NOTE | 2020-05-28 08:05 | Progress Note ---
Assessment and Plan Assessment and plan: Acute CVA. Hypertension DM type 2 Suspected COVID PNA 05/25. F/U MRI brain and carotid US. Cont. ASA and Lipitor. PT eval. follow-up Covid testing. Start dexamethasone empirically until Covid testing resulted. 05/26. Carotid ultrasound negative. Await MRI brain. Neurology consultation pending. Covid PCR testing on 05/25 is positive. 05/27/2020; CT head, carotid Doppler, echo unremarkable. MRI and EEG evaluation is pending. Patient is positive for Covid does not have any symptoms. She was evaluated by ID and no treatment is needed. Was evaluated by physical therapy recommend acute rehab. Disposition; acute rehab after neurology evaluation and MRI completed. 05/28; MRI was done; 1.5 x 0.7 cm subacute ischemic infarct in the right gangliocapsular region. Chronic focal infarcts in the right thalamus, genu of the right internal capsule, body of the left corpus callosum and left marc. No need for Covid treatment. Neurology evaluation is pending. PT evaluated and recommend subacute rehab. Blood sugar is uncontrolled, I added Lantus in addition to sliding scale insulin. Will check A1c. Neurology evaluated and recommend aspirin, and Plavix for 21 days. History Interval history: Patient was seen and evaluated this morning Patient was complaining hiccups No focal neurologic deficit Hospitalist Physical - Physical exam Narrative exam: Not in cardiopulmonary distress. The patient appeared well nourished and normally developed. Vital signs as documented. Head exam is unremarkable. No scleral icterus . Neck is without jugular venous distension, thyromegaly, or carotid bruits. Lungs are clear to auscultation. Cardiac exam reveals regular rate and Rhythm. Abdominal exam reveals normal bowel sounds, nontender, no organomegaly. Extremities are nonedematous and both femoral and pedal pulses are normal. 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 No focal weakness. - Constitutional Vitals: Temp Pulse Resp BP Pulse Ox 98.9 F 125 H 18 151/78 99 05/28/20 04:44 05/28/20 04:44 05/28/20 04:44 05/28/20 04:44 05/28/20 04:44 General appearance: Present: no acute distress, well-nourished HEART Score - HEART Score Troponin: Troponin T 0.015 ng/mL (0.00-0.029) 05/24/20 20:03 Results - Labs CBC & Chem 7: 05/27/20 06:14 05/27/20 06:14 Labs: Laboratory Last Values WBC 9.7 K/mm3 (4.5-11.0) 05/27/20 06:14 RBC 4.77 M/mm3 (3.65-5.03) 05/27/20 06:14 Hgb 13.2 gm/dl (11.8-15.2) 05/27/20 06:14 Hct 41.2 % (35.5-45.6) D 05/27/20 06:14 MCV 86 fl (84-94) 05/27/20 06:14 MCH 28 pg (28-32) 05/27/20 06:14 MCHC 32 % (32-34) 05/27/20 06:14 RDW 14.9 % (13.2-15.2) 05/27/20 06:14 Plt Count 200 K/mm3 (140-440) 05/27/20 06:14 [place] % (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) 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 05/27/20 06:14 Eos % (Auto) 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 05/24/20 20:03 Add Manual Diff Complete 05/27/20 06:14 Total Counted 100 05/27/20 06:14 Seg Neuts % (Manual) 58.0 % (40.0-70.0) 05/27/20 06:14 Lymphocytes % (Manual) 29.0 % (13.4-35.0) 05/27/20 06:14 Reactive Lymphs % (Man) 1.0 % 05/25/20 07:23 Monocytes % (Manual) 12.0 % (0.0-7.3) H 05/27/20 06:14 Eosinophils % (Manual) 17.0 % (0.0-4.3) H 05/25/20 07:23 Basophils % (Manual) 1.0 % (0.0-1.8) 05/27/20 06:14 Nucleated RBC % Not Reportable 05/27/20 06:14 Seg Neutrophils # Man 5.6 K/mm3 (1.8-7.7) 05/27/20 06:14 Band Neutrophils # 0.0 K/mm3 05/27/20 06:14 Lymphocytes # (Manual) 2.8 K/mm3 (1.2-5.4) 05/27/20 06:14 Abs React Lymphs (Man) 0.0 K/mm3 05/27/20 06:14 Monocytes # (Manual) 1.2 K/mm3 (0.0-0.8) H 05/27/20 06:14 Eosinophils # (Manual) 0.0 K/mm3 (0.0-0.4) 05/27/20 06:14 Basophils # (Manual) 0.1 K/mm3 (0.0-0.1) 05/27/20 06:14 Metamyelocytes # 0.0 K/mm3 05/27/20 06:14 Myelocytes # 0.0 K/mm3 05/27/20 06:14 Promyelocytes # 0.0 K/mm3 05/27/20 06:14 Blast Cells # 0.0 K/mm3 05/27/20 06:14 WBC Morphology Not Reportable 05/27/20 06:14 Hypersegmented Neuts Not Reportable 05/27/20 06:14 Hyposegmented Neuts Not Reportable 05/27/20 06:14 Hypogranular Neuts Not Reportable 05/27/20 06:14 Smudge Cells Not Reportable 05/27/20 06:14 Toxic Granulation Not Reportable 05/27/20 06:14 Toxic Vacuolation Not Reportable 05/27/20 06:14 Dohle Bodies Not Reportable 05/27/20 06:14 Pelger-Huet Anomaly Not Reportable 05/27/20 06:14 Fercho Rods Not Reportable 05/27/20 06:14 Platelet Estimate Consistent w auto 05/27/20 06:14 Clumped Platelets Not Reportable 05/27/20 06:14 Plt Clumps, EDTA Not Reportable 05/27/20 06:14 Large Platelets Not Reportable 05/27/20 06:14 Giant Platelets Not Reportable 05/27/20 06:14 Platelet Satelliting Not Reportable 05/27/20 06:14 Plt Morphology Comment Not Reportable 05/27/20 06:14 RBC Morphology Normal 05/27/20 06:14 Dimorphic RBCs Not Reportable 05/27/20 06:14 Polychromasia Not Reportable 05/27/20 06:14 Hypochromasia Not Reportable 05/27/20 06:14 Poikilocytosis Not Reportable 05/27/20 06:14 Anisocytosis Not Reportable 05/27/20 06:14 Microcytosis Not Reportable 05/27/20 06:14 Macrocytosis Not Reportable 05/27/20 06:14 Spherocytes Not Reportable 05/27/20 06:14 Pappenheimer Bodies Not Reportable 05/27/20 06:14 Sickle Cells Not Reportable 05/27/20 06:14 Target Cells Not Reportable 05/27/20 06:14 Tear Drop Cells Not Reportable 05/27/20 06:14 Ovalocytes Not Reportable 05/27/20 06:14 Helmet Cells Not Reportable 05/27/20 06:14 [place] Bodies Not Reportable 05/27/20 06:14 [place] Rings Not Reportable 05/27/20 06:14 [place] Cells Not Reportable 05/27/20 06:14 Bite Cells Not Reportable 05/27/20 06:14 Crenated Cell Not Reportable 05/27/20 06:14 Elliptocytes Not Reportable 05/27/20 06:14 Acanthocytes (Spur) Not Reportable 05/27/20 06:14 Rouleaux Not Reportable 05/27/20 06:14 Hemoglobin C Crystals Not Reportable 05/27/20 06:14 Schistocytes Not Reportable 05/27/20 06:14 Malaria parasites Not Reportable 05/27/20 06:14 Johnson Bodies Not Reportable 05/27/20 06:14 Hem Pathologist Commnt No 05/27/20 06:14 PT 13.0 Sec. (12.2-14.9) 05/25/20 07:23 INR 1.00 (0.87-1.13) 05/25/20 07:23 APTT 28.7 Sec. (24.2-36.6) 05/24/20 20:03 Thrombin Time 16.9 Sec. (15.1-19.6) 05/24/20 20:03 Sodium 136 mmol/L (137-145) L 05/27/20 06:14 Potassium 4.5 mmol/L (3.6-5.0) 05/27/20 06:14 Chloride 98.9 mmol/L (98-107) 05/27/20 06:14 Carbon Dioxide 27 mmol/L (22-30) 05/27/20 06:14 Anion Gap 15 mmol/L 05/27/20 06:14 BUN 27 mg/dL (9-20) H 05/27/20 06:14 Creatinine 1.3 mg/dL (0.8-1.3) 05/27/20 06:14 Estimated GFR > 60 ml/min 05/27/20 06:14 BUN/Creatinine Ratio 21 % 05/27/20 06:14 Glucose 189 mg/dL (75-100) H 05/27/20 06:14 POC Glucose 256 mg/dL (70-105) H 05/27/20 23:20 Calcium 9.8 mg/dL (8.4-10.2) 05/27/20 06:14 Total Creatine Kinase 124 units/L (55-170) 05/24/20 20:03 CK-MB (CK-2) 2.9 ng/mL (0.0-4.0) 05/24/20 20:03 CK-MB (CK-2) Rel Index 2.3 (0-4) 05/24/20 20:03 Troponin T 0.015 ng/mL (0.00-0.029) 05/24/20 20:03 Triglycerides 29 mg/dL (2-149) 05/25/20 07:23 Cholesterol 106 mg/dL (50-199) 05/25/20 07:23 LDL Cholesterol Direct 35 mg/dL (50-130) L 05/25/20 07:23 HDL Cholesterol 72 mg/dL (40-59) H 05/25/20 07:23 Cholesterol/HDL Ratio 1.47 % 05/25/20 07:23 Urine Color Straw (Yellow) 05/24/20 Unknown Urine Turbidity Clear (Clear) 05/24/20 Unknown Urine pH 7.0 (5.0-7.0) 05/24/20 Unknown Ur Specific [place] 1.009 (1.003-1.030) 05/24/20 Unknown Urine Protein 30 mg/dl mg/dL (Negative) 05/24/20 Unknown Urine Glucose (UA) 150 mg/dL (Negative) 05/24/20 Unknown Urine Ketones Neg mg/dL (Negative) 05/24/20 Unknown Urine Blood Neg (Negative) 05/24/20 Unknown Urine Nitrite Neg (Negative) 05/24/20 Unknown Urine Bilirubin Neg (Negative) 05/24/20 Unknown Urine Urobilinogen < 2.0 mg/dL (<2.0) 05/24/20 Unknown Ur Leukocyte Esterase Neg (Negative) 05/24/20 Unknown Urine WBC (Auto) 1.0 /HPF (0.0-6.0) 05/24/20 Unknown Urine RBC (Auto) 2.0 /HPF (0.0-6.0) 05/24/20 Unknown U Epithel Cells (Auto) < 1.0 /HPF (0-13.0) 05/24/20 Unknown Urine Bacteria (Auto) 1+ /HPF (Negative) 05/24/20 Unknown Urine Mucus Few /HPF 05/24/20 Unknown Coronavirus (PCR) Positive (Negative) A 05/25/20 Unknown [place]arez/IV: Voiding Method Urinal Active Medications - Current Medications Current Medications: Generic Name Dose Route Start Last Admin Trade Name Freq PRN Reason Stop Dose Admin Acetaminophen 650 mg 05/24/20 22:27 05/25/20 05:14 Acetaminophen 325 Mg Tab PO 650 mg Q4H PRN Administration Pain, Mild (1-3) Aspirin 325 mg 05/25/20 10:00 05/27/20 10:23 Aspirin 325 Mg Tab PO 325 mg QDAY FARZAD Administration Atorvastatin Calcium 40 mg 05/25/20 22:00 05/27/20 22:47 Atorvastatin 40 Mg Tab PO 40 mg QHS FARZAD Administration Bisacodyl 10 mg 05/24/20 22:27 Bisacodyl 10 Mg Rect Supp [place] QDAY PRN Constipation Dexamethasone 6 mg 05/25/20 10:00 05/27/20 10:23 Dexamethasone 4 Mg/Ml Vial IV 06/03/20 10:01 6 mg DAILY FARZAD Administration Dextrose 0 ml 05/24/20 22:27 Dextrose 50% In Water (25gm) 50 Ml Syringe IV Q30MIN PRN Hypoglycemia Protocol Enoxaparin Sodium 40 mg 05/25/20 22:00 05/27/20 22:48 Enoxaparin 40 Mg/0.4 Ml Inj SUB-Q 40 mg QDAY@2200 FARZAD Administration Protocol Insulin Glargine 20 units 05/28/20 22:00 Insulin Glargine 100 Units/Ml SUB-Q QHS [facility] Insulin Human Lispro 0 unit 05/25/20 07:30 05/27/20 22:36 Insulin Lispro 100 Unit/Ml SUB-Q 4 unit ACHS FARZAD Administration Protocol Magnesium Hydroxide 30 ml 05/24/20 22:27 Magnesium Hydroxide (Mom) Oral Liqd Udc PO Q4H PRN Constipation Metoclopramide HCl 10 mg 05/24/20 22:27 05/26/20 23:22 Metoclopramide 10 Mg Tab PO 10 mg Q6H PRN Administration Nausea And Vomiting Morphine Sulfate 2 mg 05/24/20 22:27 Morphine 2 Mg/1 Ml Inj IV Q4H PRN Pain, Moderate (4-6) Ondansetron HCl 4 mg 05/24/20 22:27 Ondansetron 4 Mg/2 Ml Inj IV Q8H PRN Nausea And Vomiting Promethazine HCl 25 mg 05/24/20 22:27 Promethazine 25 Mg Rect Supp [place] Q6H PRN Nausea And Vomiting Sodium Chloride 10 ml 05/25/20 10:00 05/27/20 22:49 Sodium Chloride 0.9% 10 Ml Flush Syringe IV 10 ml BID FARZAD Administration Sodium Chloride 10 ml 05/24/20 22:27 Sodium Chloride 0.9% 10 Ml Flush Syringe IV PRN PRN LINE FLUSH Nutrition/Malnutrition Assess - Dietary Evaluation Nutrition/Malnutrition Findings: Nutrition Notes Start: 05/25/20 1 1:32 Freq: Status: Active Protocol: Document 05/27/20 12:24 (Rec: 05/27/20 12:27 [id number]) Nutrition Notes Initial or Follow up Brief Note Current Diagnosis Diabetes,Hypertension Other Pertinent Diagnosis COVID(+) Current Diet pureed, consistent CHO Subjective/Other Information FU for diet education. Spoke with pt on phone, pt denied diet education. Nutrition Intervention Revisit per MD consult or patient Sign Off request:
[2020-05-28] MEDS: INSULIN LISPRO 100 UNIT/ML SUB-Q SCH ×4 (08:45→21:58)
[2020-05-28] MEDS: DEXAMETHASONE 4 MG TAB PO SCH (09:50)
[2020-05-28] MEDS: ASPIRIN 325 MG TAB PO SCH (09:50)
--- NOTE | 2020-05-28 09:57 | Consultation ---
History of Present Illness Consult date: 05/28/20 Reason for Consult: Acute Ischemic Stroke Chief complaint: Slurred Speech History of present illness: 65 yo male with htn, dm, who presented initially slurred speech with a right facial droop with noted "diziness". Patient did not receive IV-tPA. Televideo not available secondary to [place] [id number] isolation status. Past History Past Medical History: diabetes, hypertension Past Surgical History: No surgical history Social history: no significant social history Family history: no significant family history Medications and Allergies Allergies Allergy/AdvReac Type Severity Reaction Status Date / Time No Known Allergies Allergy Unverified 05/24/20 19:31 Home Medications Medication Instructions Recorded Confirmed Last Taken Type No Known Home Medications [No 05/26/20 05/26/20 Unknown History Reported Home Medications] Active Meds: Active Medications Acetaminophen (Acetaminophen 325 Mg Tab) 650 mg PO Q4H PRN PRN Reason: Pain, Mild (1-3) Last Admin: 05/25/20 05:14 Dose: 650 mg Documented by: Aspirin (Aspirin 325 Mg Tab) 325 mg PO QDAY [facility] Last Admin: 05/28/20 09:50 Dose: 325 mg Documented by: Atorvastatin Calcium (Atorvastatin 40 Mg Tab) 40 mg PO QHS [facility] Last Admin: 05/27/20 22:47 Dose: 40 mg Documented by: Bisacodyl (Bisacodyl 10 Mg Rect Supp) 10 mg [place] QDAY PRN PRN Reason: Constipation Dexamethasone (Dexamethasone 4 Mg Tab) 6 mg PO DAILY [facility] Stop: 06/03/20 12:00 Last Admin: 05/28/20 09:50 Dose: 6 mg Documented by: Dextrose (Dextrose 50% In Water (25gm) 50 Ml Syringe) 0 ml IV Q30MIN PRN; Protocol PRN Reason: Hypoglycemia Enoxaparin Sodium (Enoxaparin 40 Mg/0.4 Ml Inj) 40 mg SUB-Q QDAY@2200 [facility]; Protocol Last Admin: 05/27/20 22:48 Dose: 40 mg Documented by: Insulin Glargine (Insulin Glargine 100 Units/Ml) 20 units SUB-Q QHS FARZAD Insulin Human Lispro (Insulin Lispro 100 Unit/Ml) 0 unit SUB-Q ACHS [facility]; Protocol Last Admin: 05/28/20 08:45 Dose: 4 unit Documented by: Magnesium Hydroxide (Magnesium Hydroxide (Mom) Oral Liqd Udc) 30 ml PO Q4H PRN PRN Reason: Constipation Metoclopramide HCl (Metoclopramide 10 Mg Tab) 10 mg PO Q6H PRN PRN Reason: Nausea And Vomiting Last Admin: 05/26/20 23:22 Dose: 10 mg Documented by: Morphine Sulfate (Morphine 2 Mg/1 Ml Inj) 2 mg IV Q4H PRN PRN Reason: Pain, Moderate (4-6) Ondansetron HCl (Ondansetron 4 Mg/2 Ml Inj) 4 mg IV Q8H PRN PRN Reason: Nausea And Vomiting Promethazine HCl (Promethazine 25 Mg Rect Supp) 25 mg [place] Q6H PRN PRN Reason: Nausea And Vomiting Sodium Chloride (Sodium Chloride 0.9% 10 Ml Flush Syringe) 10 ml IV BID FARZAD Last Admin: 05/28/20 09:50 Dose: 10 ml Documented by: Sodium Chloride (Sodium Chloride 0.9% 10 Ml Flush Syringe) 10 ml IV PRN PRN PRN Reason: LINE FLUSH Physical Examination - Vital Signs Vital Signs: Vital Signs Pulse Resp Pulse Ox 99 H 16 100 05/24/20 20:04 05/24/20 20:04 05/24/20 20:04 - Physical Exam Narrative exam: Televideo not available due to Covid-19 isolation status. Results - Laboratory Findings CBC and BMP: 05/27/20 06:14 05/27/20 06:14 Abnormal Lab Findings: Abnormal Labs 05/24/20 05/24/20 05/25/20 20:03 20:03 07:23 Hgb 11.3 L 10.9 L Hct 35.2 L 33.6 L Lymphocytes % (Manual) 11.0 L 5.0 L Monocytes % (Manual) 15.0 H 21.0 H Eosinophils % (Manual) 15.0 H 17.0 H Basophils % (Manual) 3.0 H Lymphocytes # (Manual) 0.7 L 0.4 L Monocytes # (Manual) 1.0 H 1.7 H Eosinophils # (Manual) 1.0 H 1.3 H Basophils # (Manual) 0.2 H Sodium 135 L BUN Glucose 192 H POC Glucose Hemoglobin A1c LDL Cholesterol Direct HDL Cholesterol Coronavirus (PCR) 05/25/20 05/25/20 05/25/20 07:23 08:01 11:22 Hgb Hct Lymphocytes % (Manual) Monocytes % (Manual) Eosinophils % (Manual) Basophils % (Manual) Lymphocytes # (Manual) Monocytes # (Manual) Eosinophils # (Manual) Basophils # (Manual) Sodium 134 L BUN Glucose 190 H POC Glucose 227 H 235 H Hemoglobin A1c LDL Cholesterol Direct 35 L HDL Cholesterol 72 H Coronavirus (PCR) 05/25/20 05/25/20 05/25/20 16:45 22:56 Unknown Hgb Hct Lymphocytes % (Manual) Monocytes % (Manual) Eosinophils % (Manual) Basophils % (Manual) Lymphocytes # (Manual) Monocytes # (Manual) Eosinophils # (Manual) Basophils # (Manual) Sodium BUN Glucose POC Glucose 348 H 365 H Hemoglobin A1c LDL Cholesterol Direct HDL Cholesterol Coronavirus (PCR) Positive A 05/26/20 05/26/20 05/26/20 07:54 11:10 18:31 Hgb Hct Lymphocytes % (Manual) Monocytes % (Manual) Eosinophils % (Manual) Basophils % (Manual) Lymphocytes # (Manual) Monocytes # (Manual) Eosinophils # (Manual) Basophils # (Manual) Sodium BUN Glucose POC Glucose 224 H 271 H 510 H Hemoglobin A1c LDL Cholesterol Direct HDL Cholesterol Coronavirus (PCR) 05/26/20 05/26/20 05/27/20 18:44 21:28 06:14 Hgb Hct Lymphocytes % (Manual) Monocytes % (Manual) 12.0 H Eosinophils % (Manual) Basophils % (Manual) Lymphocytes # (Manual) Monocytes # (Manual) 1.2 H Eosinophils # (Manual) Basophils # (Manual) Sodium BUN Glucose 513 H* POC Glucose 336 H Hemoglobin A1c LDL Cholesterol Direct HDL Cholesterol Coronavirus (PCR) 05/27/20 05/27/20 05/27/20 06:14 06:14 07:36 Hgb Hct Lymphocytes % (Manual) Monocytes % (Manual) Eosinophils % (Manual) Basophils % (Manual) Lymphocytes # (Manual) Monocytes # (Manual) Eosinophils # (Manual) Basophils # (Manual) Sodium 136 L BUN 27 H Glucose 189 H POC Glucose 234 H Hemoglobin A1c 13.0 H LDL Cholesterol Direct HDL Cholesterol Coronavirus (PCR) 05/27/20 05/27/20 05/27/20 11:34 15:45 23:20 Hgb Hct Lymphocytes % (Manual) Monocytes % (Manual) Eosinophils % (Manual) Basophils % (Manual) Lymphocytes # (Manual) Monocytes # (Manual) Eosinophils # (Manual) Basophils # (Manual) Sodium BUN Glucose POC Glucose 342 H 205 H 256 H Hemoglobin A1c LDL Cholesterol Direct HDL Cholesterol Coronavirus (PCR) 05/28/20 08:05 Hgb Hct Lymphocytes % (Manual) Monocytes % (Manual) Eosinophils % (Manual) Basophils % (Manual) Lymphocytes # (Manual) Monocytes # (Manual) Eosinophils # (Manual) Basophils # (Manual) Sodium BUN Glucose POC Glucose 292 H Hemoglobin A1c LDL Cholesterol Direct HDL Cholesterol Coronavirus (PCR) Assessment and Plan 1. Acute Ischemic Stroke: ASA 325 mg PO qday; Plavix 75 mg PO qday x 21 days; no significant findings on TTEcho or CUS; LDL 35; confirm HgbA1C/TSH, SBP goal 160-200 mmHg and DBP 80-100 mmHg for 24 more hours and then may normalize slowly. Statin therapy for a goal LDL of 70, when patient passes swallow evaluation. PT/OT/ST/Swallow evaluation. Long-term risk-factor modification, including a strict diet/exercise regimen for secondary stroke prophylaxis. 2. Hypertension - goal SBP 160-200 mmHg and DBP 80-100 mmHg for 24 more hours and then may normalize slowly. 3. Diabetes Mellitus - maintain euglycemia. 4. Dysarthria / Dysphagia - st / swallow evaluation/monitoring. 5. Followup with Stroke Neurology in 6 weeks. Johny Cuello MD Neurology
--- NOTE | 2020-05-28 13:44 | Progress Note ---
Assessment and Plan Cultures: COVID PCR: positive A/P: 65 yo M PMHx HTN, DM2 presents with CVA, found to have COVID-19 #COVID-19: Son was recently diagnosed as was he. He is not hypoxic presently, though given recent spread would closely monitor for respiratory deterioration. At present no need for therapy. #Acute CVA: with slurred speech. COVID-19 can cause thrombosis, though he does have traditional risk factors such as HTN and DM2.MRI showing subactue infarct in the setting of prior infarcts #Diabetes: tight glycemic control for best outcomes. Recs: -No need for COVID-19 specific therapies or antibiotics at present. -If he becomes hypoxic please start dexamethasone 6mg daily. If he requires supplemental O2 please start Remdesivir -Obtain q48-72h inflammatory markers - ferritin, Ddimer, CRP, LDH -Anticoagulation per hospital protocol Thank you for the consult, we will sign off. Please call if questions or if respiratory status changes. Keshia Perez MD [facility] O: [phone] F: [phone] Subjective Date of service: 05/28/20 Interval history: Afebrile, no change. Imaging personally reviewed: Brain MRI: subacute infarct Objective - Exam Narrative Exam: Physical exam deferred to reduce risk of transmission of COVID-19. Please refer to primary team's note. - Constitutional Vitals: Vital Signs Temp Pulse Resp BP Pulse Ox 98.9 F 100 H 18 151/78 99 05/28/20 04:44 05/28/20 10:00 05/28/20 10:00 05/28/20 04:44 05/28/20 04:44 Temperature -Last 24 Hours Temperature 98.9 F Temperature 99.2 F Temperature 98.9 F - Labs CBC & Chem 7: 05/27/20 06:14 05/27/20 06:14 Labs: Abnormal lab results 05/27/20 05/27/20 05/27/20 Range/Units 06:14 15:45 23:20 POC Glucose 205 H 256 H (70-105) mg/dL Hemoglobin A1c 13.0 H (4-6) % 05/28/20 05/28/20 Range/Units 08:05 11:43 POC Glucose 292 H 421 H (70-105) mg/dL Hemoglobin A1c (4-6) %
[2020-05-28] MEDS: PANTOPRAZOLE 40 MG TAB PO SCH (18:16)
[2020-05-28] MEDS: BACLOFEN 10 MG TAB PO SCH (20:01)
[2020-05-28] MEDS: ENOXAPARIN 40 MG/0.4 ML INJ SUB-Q SCH (21:53)
[2020-05-28] MEDS: INSULIN GLARGINE 100 UNITS/ML SUB-Q SCH (21:54)
--- NOTE | 2020-05-29 08:05 | Progress Note ---
Assessment and Plan Assessment and plan: Acute CVA. Hypertension DM type 2 Suspected COVID PNA 05/25. F/U MRI brain and carotid US. Cont. ASA and Lipitor. PT eval. follow-up Covid testing. Start dexamethasone empirically until Covid testing resulted. 05/26. Carotid ultrasound negative. Await MRI brain. Neurology consultation pending. Covid PCR testing on 05/25 is positive. 05/27/2020; CT head, carotid Doppler, echo unremarkable. MRI and EEG evaluation is pending. Patient is positive for Covid does not have any symptoms. She was evaluated by ID and no treatment is needed. Was evaluated by physical therapy recommend acute rehab. Disposition; acute rehab after neurology evaluation and MRI completed. 05/28; MRI was done; 1.5 x 0.7 cm subacute ischemic infarct in the right gangliocapsular region. Chronic focal infarcts in the right thalamus, genu of the right internal capsule, body of the left corpus callosum and left macr. No need for Covid treatment. Neurology evaluation is pending. PT evaluated and recommend subacute rehab. Blood sugar is uncontrolled, I added Lantus in addition to sliding scale insulin. Will check A1c. Neurology evaluated and recommend aspirin, and Plavix for 21 days. 05/29/20; patient was evaluated by neurology and recommend to continue current management. Patient was seen by ID and she is on dexamethasone. Hemoglobin A1c is 13.1. Continue with aspirin and Plavix. Evaluated by PT OT and recommended subacute stroke. History Interval history: Patient was seen and evaluated this morning Patient was complaining hiccups No focal neurologic deficit Hospitalist Physical - Physical exam Narrative exam: Not in cardiopulmonary distress. The patient appeared well nourished and normally developed. Vital signs as documented. Head exam is unremarkable. No scleral icterus . Neck is without jugular venous distension, thyromegaly, or carotid bruits. Lungs are clear to auscultation. Cardiac exam reveals regular rate and Rhythm. Abdominal exam reveals normal bowel sounds, nontender, no organomegaly. Extremities are nonedematous and both femoral and pedal pulses are normal. 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 No focal weakness. - Constitutional Vitals: Temp Pulse Resp BP Pulse Ox 99.1 F 90 22 148/75 99 05/29/20 04:38 05/29/20 04:38 05/29/20 04:38 05/29/20 04:38 05/29/20 04:38 General appearance: Present: no acute distress, well-nourished HEART Score - HEART Score Troponin: Troponin T 0.015 ng/mL (0.00-0.029) 05/24/20 20:03 Results - Labs CBC & Chem 7: 05/27/20 06:14 05/27/20 06:14 Labs: Laboratory Last Values WBC 9.7 K/mm3 (4.5-11.0) 05/27/20 06:14 RBC 4.77 M/mm3 (3.65-5.03) 05/27/20 06:14 Hgb 13.2 gm/dl (11.8-15.2) 05/27/20 06:14 Hct 41.2 % (35.5-45.6) D 05/27/20 06:14 MCV 86 fl (84-94) 05/27/20 06:14 MCH 28 pg (28-32) 05/27/20 06:14 MCHC 32 % (32-34) 05/27/20 06:14 RDW 14.9 % (13.2-15.2) 05/27/20 06:14 Plt Count 200 K/mm3 (140-440) 05/27/20 06:14 [place] % (Auto) Pump Assembler 05/27/20 06:14 Eos % (Auto) Pump Assembler 05/24/20 20:03 Add Manual Diff Complete 05/27/20 06:14 Total Counted 100 05/27/20 06:14 Seg Neuts % (Manual) 58.0 % (40.0-70.0) 05/27/20 06:14 Lymphocytes % (Manual) 29.0 % (13.4-35.0) 05/27/20 06:14 Reactive Lymphs % (Man) 1.0 % 05/25/20 07:23 Monocytes % (Manual) 12.0 % (0.0-7.3) H 05/27/20 06:14 Eosinophils % (Manual) 17.0 % (0.0-4.3) H 05/25/20 07:23 Basophils % (Manual) 1.0 % (0.0-1.8) 05/27/20 06:14 Nucleated RBC % Not Reportable 05/27/20 06:14 Seg Neutrophils # Man 5.6 K/mm3 (1.8-7.7) 05/27/20 06:14 Band Neutrophils # 0.0 K/mm3 05/27/20 06:14 Lymphocytes # (Manual) 2.8 K/mm3 (1.2-5.4) 05/27/20 06:14 Abs React Lymphs (Man) 0.0 K/mm3 05/27/20 06:14 Monocytes # (Manual) 1.2 K/mm3 (0.0-0.8) H 05/27/20 06:14 Eosinophils # (Manual) 0.0 K/mm3 (0.0-0.4) 05/27/20 06:14 Basophils # (Manual) 0.1 K/mm3 (0.0-0.1) 05/27/20 06:14 Metamyelocytes # 0.0 K/mm3 05/27/20 06:14 Myelocytes # 0.0 K/mm3 05/27/20 06:14 Promyelocytes # 0.0 K/mm3 05/27/20 06:14 Blast Cells # 0.0 K/mm3 05/27/20 06:14 WBC Morphology Not Reportable 05/27/20 06:14 Hypersegmented Neuts Not Reportable 05/27/20 06:14 Hyposegmented Neuts Not Reportable 05/27/20 06:14 Hypogranular Neuts Not Reportable 05/27/20 06:14 Smudge Cells Not Reportable 05/27/20 06:14 Toxic Granulation Not Reportable 05/27/20 06:14 Toxic Vacuolation Not Reportable 05/27/20 06:14 Dohle Bodies Not Reportable 05/27/20 06:14 Pelger-Huet Anomaly Not Reportable 05/27/20 06:14 Fercho Rods Not Reportable 05/27/20 06:14 Platelet Estimate Consistent w auto 05/27/20 06:14 Clumped Platelets Not Reportable 05/27/20 06:14 Plt Clumps, EDTA Not Reportable 05/27/20 06:14 Large Platelets Not Reportable 05/27/20 06:14 Giant Platelets Not Reportable 05/27/20 06:14 Platelet Satelliting Not Reportable 05/27/20 06:14 Plt Morphology Comment Not Reportable 05/27/20 06:14 RBC Morphology Normal 05/27/20 06:14 Dimorphic RBCs Not Reportable 05/27/20 06:14 Polychromasia Not Reportable 05/27/20 06:14 Hypochromasia Not Reportable 05/27/20 06:14 Poikilocytosis Not Reportable 05/27/20 06:14 Anisocytosis Not Reportable 05/27/20 06:14 Microcytosis Not Reportable 05/27/20 06:14 Macrocytosis Not Reportable 05/27/20 06:14 Spherocytes Not Reportable 05/27/20 06:14 Pappenheimer Bodies Not Reportable 05/27/20 06:14 Sickle Cells Not Reportable 05/27/20 06:14 Target Cells Not Reportable 05/27/20 06:14 Tear Drop Cells Not Reportable 05/27/20 06:14 Ovalocytes Not Reportable 05/27/20 06:14 Helmet Cells Not Reportable 05/27/20 06:14 [place] Bodies Not Reportable 05/27/20 06:14 [place] Rings Not Reportable 05/27/20 06:14 [place] Cells Not Reportable 05/27/20 06:14 Bite Cells Not Reportable 05/27/20 06:14 Crenated Cell Not Reportable 05/27/20 06:14 Elliptocytes Not Reportable 05/27/20 06:14 Acanthocytes (Spur) Not Reportable 05/27/20 06:14 Rouleaux Not Reportable 05/27/20 06:14 Hemoglobin C Crystals Not Reportable 05/27/20 06:14 Schistocytes Not Reportable 05/27/20 06:14 Malaria parasites Not Reportable 05/27/20 06:14 Johnson Bodies Not Reportable 05/27/20 06:14 Hem Pathologist Commnt No 05/27/20 06:14 PT 13.0 Sec. (12.2-14.9) 05/25/20 07:23 INR 1.00 (0.87-1.13) 05/25/20 07:23 APTT 28.7 Sec. (24.2-36.6) 05/24/20 20:03 Thrombin Time 16.9 Sec. (15.1-19.6) 05/24/20 20:03 Sodium 136 mmol/L (137-145) L 05/27/20 06:14 Potassium 4.5 mmol/L (3.6-5.0) 05/27/20 06:14 Chloride 98.9 mmol/L (98-107) 05/27/20 06:14 Carbon Dioxide 27 mmol/L (22-30) 05/27/20 06:14 Anion Gap 15 mmol/L 05/27/20 06:14 BUN 27 mg/dL (9-20) H 05/27/20 06:14 Creatinine 1.3 mg/dL (0.8-1.3) 05/27/20 06:14 Estimated GFR > 60 ml/min 05/27/20 06:14 BUN/Creatinine Ratio 21 % 05/27/20 06:14 Glucose 189 mg/dL (75-100) H 05/27/20 06:14 POC Glucose 293 mg/dL (70-105) H 05/28/20 21:12 Hemoglobin A1c 13.0 % (4-6) H 05/27/20 06:14 Calcium 9.8 mg/dL (8.4-10.2) 05/27/20 06:14 Total Creatine Kinase 124 units/L (55-170) 05/24/20 20:03 CK-MB (CK-2) 2.9 ng/mL (0.0-4.0) 05/24/20 20:03 CK-MB (CK-2) Rel Index 2.3 (0-4) 05/24/20 20:03 Troponin T 0.015 ng/mL (0.00-0.029) 05/24/20 20:03 Triglycerides 29 mg/dL (2-149) 05/25/20 07:23 Cholesterol 106 mg/dL (50-199) 05/25/20 07:23 LDL Cholesterol Direct 35 mg/dL (50-130) L 05/25/20 07:23 HDL Cholesterol 72 mg/dL (40-59) H 05/25/20 07:23 Cholesterol/HDL Ratio 1.47 % 05/25/20 07:23 Urine Color Straw (Yellow) 05/24/20 Unknown Urine Turbidity Clear (Clear) 05/24/20 Unknown Urine pH 7.0 (5.0-7.0) 05/24/20 Unknown Ur Specific [place] 1.009 (1.003-1.030) 05/24/20 Unknown Urine Protein 30 mg/dl mg/dL (Negative) 05/24/20 Unknown Urine Glucose (UA) 150 mg/dL (Negative) 05/24/20 Unknown Urine Ketones Neg mg/dL (Negative) 05/24/20 Unknown Urine Blood Neg (Negative) 05/24/20 Unknown Urine Nitrite Neg (Negative) 05/24/20 Unknown Urine Bilirubin Neg (Negative) 05/24/20 Unknown Urine Urobilinogen < 2.0 mg/dL (<2.0) 05/24/20 Unknown Ur Leukocyte Esterase Neg (Negative) 05/24/20 Unknown Urine WBC (Auto) 1.0 /HPF (0.0-6.0) 05/24/20 Unknown Urine RBC (Auto) 2.0 /HPF (0.0-6.0) 05/24/20 Unknown U Epithel Cells (Auto) < 1.0 /HPF (0-13.0) 05/24/20 Unknown Urine Bacteria (Auto) 1+ /HPF (Negative) 05/24/20 Unknown Urine Mucus Few /HPF 05/24/20 Unknown Coronavirus (PCR) Positive (Negative) A 05/25/20 Unknown Juarez/IV: Voiding Method Urinal Active Medications - Current Medications Current Medications: Generic Name Dose Route Start Last Admin Trade Name Freq PRN Reason Stop Dose Admin Acetaminophen 650 mg 05/24/20 22:27 05/25/20 05:14 Acetaminophen 325 Mg Tab PO 650 mg Q4H PRN Administration Pain, Mild (1-3) Aspirin 325 mg 05/25/20 10:00 05/28/20 09:50 Aspirin 325 Mg Tab PO 325 mg QDAY FARZAD Administration Atorvastatin Calcium 40 mg 05/25/20 22:00 05/28/20 21:54 Atorvastatin 40 Mg Tab PO 40 mg QHS FARZAD Administration Baclofen 10 mg 05/28/20 20:00 05/28/20 20:01 Baclofen 10 Mg Tab PO 10 mg TID FARZAD Administration Bisacodyl 10 mg 05/24/20 22:27 Bisacodyl 10 Mg Rect Supp [place] QDAY PRN Constipation Clopidogrel Bisulfate 75 mg 05/29/20 10:00 Clopidogrel 75 Mg Tab PO QDAY FARZAD Dexamethasone 6 mg 05/28/20 10:00 05/28/20 09:50 Dexamethasone 4 Mg Tab PO 06/03/20 12:00 6 mg DAILY FARZAD Administration Dextrose 0 ml 05/24/20 22:27 Dextrose 50% In Water (25gm) 50 Ml Syringe IV Q30MIN PRN Hypoglycemia Protocol Enoxaparin Sodium 40 mg 05/25/20 22:00 05/28/20 21:53 Enoxaparin 40 Mg/0.4 Ml Inj SUB-Q 40 mg QDAY@2200 FARZAD Administration Protocol Insulin Glargine 20 units 05/28/20 22:00 05/28/20 21:54 Insulin Glargine 100 Units/Ml SUB-Q 20 units QHS FARZAD Administration Insulin Human Lispro 0 unit 05/25/20 07:30 05/28/20 21:58 Insulin Lispro 100 Unit/Ml SUB-Q 4 unit ACHS FARZAD Administration Protocol Magnesium Hydroxide 30 ml 05/24/20 22:27 Magnesium Hydroxide (Mom) Oral Liqd Udc PO Q4H PRN Constipation Metoclopramide HCl 10 mg 05/24/20 22:27 05/26/20 23:22 Metoclopramide 10 Mg Tab PO 10 mg Q6H PRN Administration Nausea And Vomiting Morphine Sulfate 2 mg 05/24/20 22:27 Morphine 2 Mg/1 Ml Inj IV Q4H PRN Pain, Moderate (4-6) Ondansetron HCl 4 mg 05/24/20 22:27 Ondansetron 4 Mg/2 Ml Inj IV Q8H PRN Nausea And Vomiting Pantoprazole Sodium 40 mg 05/28/20 16:30 05/28/20 18:16 Pantoprazole 40 Mg Tab PO 40 mg BIDAC FARZAD Administration Promethazine HCl 25 mg 05/24/20 22:27 Promethazine 25 Mg Rect Supp [place] Q6H PRN Nausea And Vomiting Sodium Chloride 10 ml 05/25/20 10:00 05/28/20 21:54 Sodium Chloride 0.9% 10 Ml Flush Syringe IV 10 ml BID FARZAD Administration Sodium Chloride 10 ml 05/24/20 22:27 Sodium Chloride 0.9% 10 Ml Flush Syringe IV PRN PRN LINE FLUSH Nutrition/Malnutrition Assess - Dietary Evaluation Nutrition/Malnutrition Findings: Nutrition Notes Start: 05/25/20 11:32 Freq: Status: Active Protocol: Document 05/27/20 12:24 (Rec: 05/27/20 12:27 [id number]) Nutrition Notes Initial or Follow up Brief Note Current Diagnosis Diabetes,Hypertension Other Pertinent Diagnosis COVID(+) Current Diet pureed, consistent CHO Subjective/Other Information FU for diet education. Spoke with pt on phone, pt denied diet education. Nutrition Intervention Revisit per MD consult or patient Sign Off request:
[2020-05-29] MEDS: DEXAMETHASONE 4 MG TAB PO SCH (10:22)
[2020-05-29] MEDS: CLOPIDOGREL 75 MG TAB PO SCH (10:23)
[2020-05-29] MEDS: BACLOFEN 10 MG TAB PO SCH ×3 (10:23→20:39)
[2020-05-29] MEDS: PANTOPRAZOLE 40 MG TAB PO SCH ×2 (10:23→17:51)
[2020-05-29] MEDS: ASPIRIN 325 MG TAB PO SCH (10:23)
[2020-05-29] MEDS: INSULIN LISPRO 100 UNIT/ML SUB-Q SCH ×5 (12:27→22:13)
[2020-05-29] MEDS: INSULIN GLARGINE 100 UNITS/ML SUB-Q SCH (22:12)
[2020-05-29] MEDS: ENOXAPARIN 40 MG/0.4 ML INJ SUB-Q SCH (22:12)
[2020-05-30] MEDS: ACETAMINOPHEN 325 MG TAB PO PRN (05:33)
--- NOTE | 2020-05-30 08:03 | Progress Note ---
Assessment and Plan Assessment and plan: Acute CVA. Hypertension DM type 2 Suspected COVID PNA 05/25. F/U MRI brain and carotid US. Cont. ASA and Lipitor. PT eval. follow-up Covid testing. Start dexamethasone empirically until Covid testing resulted. 05/26. Carotid ultrasound negative. Await MRI brain. Neurology consultation pending. Covid PCR testing on 05/25 is positive. 05/27/2020; CT head, carotid Doppler, echo unremarkable. MRI and EEG evaluation is pending. Patient is positive for Covid does not have any symptoms. She was evaluated by ID and no treatment is needed. Was evaluated by physical therapy recommend acute rehab. Disposition; acute rehab after neurology evaluation and MRI completed. 05/28; MRI was done; 1.5 x 0.7 cm subacute ischemic infarct in the right gangliocapsular region. Chronic focal infarcts in the right thalamus, genu of the right internal capsule, body of the left corpus callosum and left marc. No need for Covid treatment. Neurology evaluation is pending. PT evaluated and recommend subacute rehab. Blood sugar is uncontrolled, I added Lantus in addition to sliding scale insulin. Will check A1c. Neurology evaluated and recommend aspirin, and Plavix for 21 days. 05/29/20; patient was evaluated by neurology and recommend to continue current management. Patient was seen by ID and she is on dexamethasone. Hemoglobin A1c is 13.1. Continue with aspirin and Plavix. Evaluated by PT OT and recommended subacute stroke. 05/30/2020; acute CVA. Continue with aspirin and Plavix. Patient is pending acute rehab. Likely to be transferred to acute rehab on Tuesday. Discussed with case management. Will monitor his blood sugar level and adjust insulin as needed. History Interval history: Patient was seen and evaluated this morning Patient was complaining hiccups No focal neurologic deficit Hospitalist Physical - Physical exam Narrative exam: Not in cardiopulmonary distress. The patient appeared well nourished and normally developed. Vital signs as documented. Head exam is unremarkable. No scleral icterus . Neck is without jugular venous distension, thyromegaly, or carotid bruits. Lungs are clear to auscultation. Cardiac exam reveals regular rate and Rhythm. Abdominal exam reveals normal bowel sounds, nontender, no organomegaly. Extremities are nonedematous and both femoral and pedal pulses are normal. 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 No focal weakness. - Constitutional Vitals: Temp Pulse Resp BP Pulse Ox 99.8 F H 102 H 24 150/77 96 05/30/20 05:14 05/30/20 04:44 05/30/20 04:44 05/30/20 04:44 05/30/20 04:44 General appearance: Present: no acute distress, well-nourished HEART Score - HEART Score Troponin: Troponin T 0.015 ng/mL (0.00-0.029) 05/24/20 20:03 Results - Labs CBC & Chem 7: 05/27/20 06:14 05/27/20 06:14 Labs: Laboratory Last Values WBC 9.7 K/mm3 (4.5-11.0) 05/27/20 06:14 RBC 4.77 M/mm3 (3.65-5.03) 05/27/20 06:14 Hgb 13.2 gm/dl (11.8-15.2) 05/27/20 06:14 Hct 41.2 % (35.5-45.6) D 05/27/20 06:14 MCV 86 fl (84-94) 05/27/20 06:14 MCH 28 pg (28-32) 05/27/20 06:14 MCHC 32 % (32-34) 05/27/20 06:14 RDW 14.9 % (13.2-15.2) 05/27/20 06:14 Plt Count 200 K/mm3 (140-440) 05/27/20 06:14 [place] % (Auto) Theater Company Producer 05/27/20 06:14 Eos % (Auto) Theater Company Producer 05/24/20 20:03 Add Manual Diff Complete 05/27/20 06:14 Total Counted 100 05/27/20 06:14 Seg Neuts % (Manual) 58.0 % (40.0-70.0) 05/27/20 06:14 Lymphocytes % (Manual) 29.0 % (13.4-35.0) 05/27/20 06:14 Reactive Lymphs % (Man) 1.0 % 05/25/20 07:23 Monocytes % (Manual) 12.0 % (0.0-7.3) H 05/27/20 06:14 Eosinophils % (Manual) 17.0 % (0.0-4.3) H 05/25/20 07:23 Basophils % (Manual) 1.0 % (0.0-1.8) 05/27/20 06:14 Nucleated RBC % Not Reportable 05/27/20 06:14 Seg Neutrophils # Man 5.6 K/mm3 (1.8-7.7) 05/27/20 06:14 Band Neutrophils # 0.0 K/mm3 05/27/20 06:14 Lymphocytes # (Manual) 2.8 K/mm3 (1.2-5.4) 05/27/20 06:14 Abs React Lymphs (Man) 0.0 K/mm3 05/27/20 06:14 Monocytes # (Manual) 1.2 K/mm3 (0.0-0.8) H 05/27/20 06:14 Eosinophils # (Manual) 0.0 K/mm3 (0.0-0.4) 05/27/20 06:14 Basophils # (Manual) 0.1 K/mm3 (0.0-0.1) 05/27/20 06:14 Metamyelocytes # 0.0 K/mm3 05/27/20 06:14 Myelocytes # 0.0 K/mm3 05/27/20 06:14 Promyelocytes # 0.0 K/mm3 05/27/20 06:14 Blast Cells # 0.0 K/mm3 05/27/20 06:14 WBC Morphology Not Reportable 05/27/20 06:14 Hypersegmented Neuts Not Reportable 05/27/20 06:14 Hyposegmented Neuts Not Reportable 05/27/20 06:14 Hypogranular Neuts Not Reportable 05/27/20 06:14 Smudge Cells Not Reportable 05/27/20 06:14 Toxic Granulation Not Reportable 05/27/20 06:14 Toxic Vacuolation Not Reportable 05/27/20 06:14 Dohle Bodies Not Reportable 05/27/20 06:14 Pelger-Huet Anomaly Not Reportable 05/27/20 06:14 Fercho Rods Not Reportable 05/27/20 06:14 Platelet Estimate Consistent w auto 05/27/20 06:14 Clumped Platelets Not Reportable 05/27/20 06:14 Plt Clumps, EDTA Not Reportable 05/27/20 06:14 Large Platelets Not Reportable 05/27/20 06:14 Giant Platelets Not Reportable 05/27/20 06:14 Platelet Satelliting Not Reportable 05/27/20 06:14 Plt Morphology Comment Not Reportable 05/27/20 06:14 RBC Morphology Normal 05/27/20 06:14 Dimorphic RBCs Not Reportable 05/27/20 06:14 Polychromasia Not Reportable 05/27/20 06:14 Hypochromasia Not Reportable 05/27/20 06:14 Poikilocytosis Not Reportable 05/27/20 06:14 Anisocytosis Not Reportable 05/27/20 06:14 Microcytosis Not Reportable 05/27/20 06:14 Macrocytosis Not Reportable 05/27/20 06:14 Spherocytes Not Reportable 05/27/20 06:14 Pappenheimer Bodies Not Reportable 05/27/20 06:14 Sickle Cells Not Reportable 05/27/20 06:14 Target Cells Not Reportable 05/27/20 06:14 Tear Drop Cells Not Reportable 05/27/20 06:14 Ovalocytes Not Reportable 05/27/20 06:14 Helmet Cells Not Reportable 05/27/20 06:14 [place] Bodies Not Reportable 05/27/20 06:14 [place] Rings Not Reportable 05/27/20 06:14 [place] Cells Not Reportable 05/27/20 06:14 Bite Cells Not Reportable 05/27/20 06:14 Crenated Cell Not Reportable 05/27/20 06:14 Elliptocytes Not Reportable 05/27/20 06:14 Acanthocytes (Spur) Not Reportable 05/27/20 06:14 Rouleaux Not Reportable 05/27/20 06:14 Hemoglobin C Crystals Not Reportable 05/27/20 06:14 Schistocytes Not Reportable 05/27/20 06:14 Malaria parasites Not Reportable 05/27/20 06:14 Johnson Bodies Not Reportable 05/27/20 06:14 Hem Pathologist Commnt No 05/27/20 06:14 PT 13.0 Sec. (12.2-14.9) 05/25/20 07:23 INR 1.00 (0.87-1.13) 05/25/20 07:23 APTT 28.7 Sec. (24.2-36.6) 05/24/20 20:03 Thrombin Time 16.9 Sec. (15.1-19.6) 05/24/20 20:03 Sodium 136 mmol/L (137-145) L 05/27/20 06:14 Potassium 4.5 mmol/L (3.6-5.0) 05/27/20 06:14 Chloride 98.9 mmol/L (98-107) 05/27/20 06:14 Carbon Dioxide 27 mmol/L (22-30) 05/27/20 06:14 Anion Gap 15 mmol/L 05/27/20 06:14 BUN 27 mg/dL (9-20) H 05/27/20 06:14 Creatinine 1.3 mg/dL (0.8-1.3) 05/27/20 06:14 Estimated GFR > 60 ml/min 05/27/20 06:14 BUN/Creatinine Ratio 21 % 05/27/20 06:14 Glucose 189 mg/dL (75-100) H 05/27/20 06:14 POC Glucose 192 mg/dL (70-105) H 05/29/20 21:50 Hemoglobin A1c 13.0 % (4-6) H 05/27/20 06:14 Calcium 9.8 mg/dL (8.4-10.2) 05/27/20 06:14 Total Creatine Kinase 124 units/L (55-170) 05/24/20 20:03 CK-MB (CK-2) 2.9 ng/mL (0.0-4.0) 05/24/20 20:03 CK-MB (CK-2) Rel Index 2.3 (0-4) 05/24/20 20:03 Troponin T 0.015 ng/mL (0.00-0.029) 05/24/20 20:03 Triglycerides 29 mg/dL (2-149) 05/25/20 07:23 Cholesterol 106 mg/dL (50-199) 05/25/20 07:23 LDL Cholesterol Direct 35 mg/dL (50-130) L 05/25/20 07:23 HDL Cholesterol 72 mg/dL (40-59) H 05/25/20 07:23 Cholesterol/HDL Ratio 1.47 % 05/25/20 07:23 Urine Color Straw (Yellow) 05/24/20 Unknown Urine Turbidity Clear (Clear) 05/24/20 Unknown Urine pH 7.0 (5.0-7.0) 05/24/20 Unknown Ur Specific [place] 1.009 (1.003-1.030) 05/24/20 Unknown Urine Protein 30 mg/dl mg/dL (Negative) 05/24/20 Unknown Urine Glucose (UA) 150 mg/dL (Negative) 05/24/20 Unknown Urine Ketones Neg mg/dL (Negative) 05/24/20 Unknown Urine Blood Neg (Negative) 05/24/20 Unknown Urine Nitrite Neg (Negative) 05/24/20 Unknown Urine Bilirubin Neg (Negative) 05/24/20 Unknown Urine Urobilinogen < 2.0 mg/dL (<2.0) 05/24/20 Unknown Ur Leukocyte Esterase Neg (Negative) 05/24/20 Unknown Urine WBC (Auto) 1.0 /HPF (0.0-6.0) 05/24/20 Unknown Urine RBC (Auto) 2.0 /HPF (0.0-6.0) 05/24/20 Unknown U Epithel Cells (Auto) < 1.0 /HPF (0-13.0) 05/24/20 Unknown Urine Bacteria (Auto) 1+ /HPF (Negative) 05/24/20 Unknown Urine Mucus Few /HPF 05/24/20 Unknown Coronavirus (PCR) Positive (Negative) A 05/25/20 Unknown Juarez/IV: Voiding Method Urinal Active Medications - Current Medications Current Medications: Generic Name Dose Route Start Last Admin Trade Name Freq PRN Reason Stop Dose Admin Acetaminophen 650 mg 05/24/20 22:27 05/30/20 05:33 Acetaminophen 325 Mg Tab PO 650 mg Q4H PRN Administration Pain, Mild (1-3) Aspirin 325 mg 05/25/20 10:00 05/29/20 10:23 Aspirin 325 Mg Tab PO 325 mg QDAY FARZAD Administration Atorvastatin Calcium 40 mg 05/25/20 22:00 05/29/20 22:12 Atorvastatin 40 Mg Tab PO 40 mg QHS FARZAD Administration Baclofen 10 mg 05/28/20 20:00 05/29/20 20:39 Baclofen 10 Mg Tab PO 10 mg TID FARZAD Administration Bisacodyl 10 mg 05/24/20 22:27 Bisacodyl 10 Mg Rect Supp [place] QDAY PRN Constipation Clopidogrel Bisulfate 75 mg 05/29/20 10:00 05/29/20 10:23 Clopidogrel 75 Mg Tab PO 75 mg QDAY FARZAD Administration Dexamethasone 6 mg 05/28/20 10:00 05/29/20 10:22 Dexamethasone 4 Mg Tab PO 06/03/20 12:00 6 mg DAILY FARZAD Administration Dextrose 0 ml 05/24/20 22:27 Dextrose 50% In Water (25gm) 50 Ml Syringe IV Q30MIN PRN Hypoglycemia Protocol Enoxaparin Sodium 40 mg 05/25/20 22:00 05/29/20 22:12 Enoxaparin 40 Mg/0.4 Ml Inj SUB-Q 40 mg QDAY@2200 FARZAD Administration Protocol Insulin Glargine 20 units 05/28/20 22:00 05/29/20 22:12 Insulin Glargine 100 Units/Ml SUB-Q 20 units QHS FARZAD Administration Insulin Human Lispro 10 unit 05/29/20 11:30 05/29/20 17:48 Insulin Lispro 100 Unit/Ml SUB-Q 10 unit AC FARZAD Administration Insulin Human Lispro 0 unit 05/29/20 11:30 05/29/20 22:13 Insulin Lispro 100 Unit/Ml SUB-Q Not Given ACHS [facility] Protocol Magnesium Hydroxide 30 ml 05/24/20 22:27 Magnesium Hydroxide (Mom) Oral Liqd Udc PO Q4H PRN Constipation Metoclopramide HCl 10 mg 05/24/20 22:27 05/26/20 23:22 Metoclopramide 10 Mg Tab PO 10 mg Q6H PRN Administration Nausea And Vomiting Morphine Sulfate 2 mg 05/24/20 22:27 Morphine 2 Mg/1 Ml Inj IV Q4H PRN Pain, Moderate (4-6) Ondansetron HCl 4 mg 05/24/20 22:27 Ondansetron 4 Mg/2 Ml Inj IV Q8H PRN Nausea And Vomiting Pantoprazole Sodium 40 mg 05/28/20 16:30 05/29/20 17:51 Pantoprazole 40 Mg Tab PO 40 mg BIDAC FARZAD Administration Promethazine HCl 25 mg 05/24/20 22:27 Promethazine 25 Mg Rect Supp DC Q6H PRN Nausea And Vomiting Sodium Chloride 10 ml 05/25/20 10:00 05/29/20 22:12 Sodium Chloride 0.9% 10 Ml Flush Syringe IV 10 ml BID FARZAD Administration Sodium Chloride 10 ml 05/24/20 22:27 Sodium Chloride 0.9% 10 Ml Flush Syringe IV PRN PRN LINE FLUSH Nutrition/Malnutrition Assess - Dietary Evaluation Nutrition/Malnutrition Findings: Nutrition Notes Start: 05/25/20 11:32 Freq: Status: Active Protocol: Document 05/29/20 09:20 (Rec: 05/29/20 09:27 [id number]) Nutrition Notes Need for Assessment generated from: Education Initial or Follow up Brief Note Current Diagnosis Diabetes,Hypertension Other Pertinent Diagnosis COVID(+) Current Diet pureed, consistent CHO Subjective/Other Information MD order for diet education. Pt states he eats mostly fish and rice at home. Pt given portion size information. Encouraged pt to take medications. #1 Nutrition Diagnosis Limited adherence to nutrition -related recommendations Etiology unknown As Evidenced by Signs and Symptoms pt understands DM diet and A1c 13% Nutrition Intervention Teaching Recipient Patient Learning Readiness Good Teaching Methods Discussion,Handout Education Handouts Provided Planning Healthy Meals Barriers to Learning No Barriers RD phone number provided Yes Patient aware of follow up options Yes Revisit per MD consult or patient Sign Off request:
[2020-05-30] MEDS: INSULIN LISPRO 100 UNIT/ML SUB-Q SCH ×7 (09:55→23:54)
[2020-05-30] MEDS: PANTOPRAZOLE 40 MG TAB PO SCH ×2 (09:56→17:25)
[2020-05-30] MEDS: ASPIRIN 325 MG TAB PO SCH (09:56)
[2020-05-30] MEDS: DEXAMETHASONE 4 MG TAB PO SCH (09:57)
[2020-05-30] MEDS: CLOPIDOGREL 75 MG TAB PO SCH (09:57)
[2020-05-30] MEDS: BACLOFEN 10 MG TAB PO SCH ×3 (09:57→19:57)
[2020-05-30] MEDS: ENOXAPARIN 40 MG/0.4 ML INJ SUB-Q SCH (21:31)
[2020-05-30] MEDS: INSULIN GLARGINE 100 UNITS/ML SUB-Q SCH (23:54)
[2020-05-31] MEDS: PANTOPRAZOLE 40 MG TAB PO SCH ×2 (07:30→16:30)
[2020-05-31] MEDS: INSULIN LISPRO 100 UNIT/ML SUB-Q SCH ×7 (07:30→21:58)
--- NOTE | 2020-05-31 07:59 | Progress Note ---
Assessment and Plan Assessment and plan: Acute CVA. Hypertension DM type 2 Suspected COVID PNA 05/25. F/U MRI brain and carotid US. Cont. ASA and Lipitor. PT eval. follow-up Covid testing. Start dexamethasone empirically until Covid testing resulted. 05/26. Carotid ultrasound negative. Await MRI brain. Neurology consultation pending. Covid PCR testing on 05/25 is positive. 05/27/2020; CT head, carotid Doppler, echo unremarkable. MRI and EEG evaluation is pending. Patient is positive for Covid does not have any symptoms. She was evaluated by ID and no treatment is needed. Was evaluated by physical therapy recommend acute rehab. Disposition; acute rehab after neurology evaluation and MRI completed. 05/28; MRI was done; 1.5 x 0.7 cm subacute ischemic infarct in the right gangliocapsular region. Chronic focal infarcts in the right thalamus, genu of the right internal capsule, body of the left corpus callosum and left marc. No need for Covid treatment. Neurology evaluation is pending. PT evaluated and recommend subacute rehab. Blood sugar is uncontrolled, I added Lantus in addition to sliding scale insulin. Will check A1c. Neurology evaluated and recommend aspirin, and Plavix for 21 days. 05/29/20; patient was evaluated by neurology and recommend to continue current management. Patient was seen by ID and she is on dexamethasone. Hemoglobin A1c is 13.1. Continue with aspirin and Plavix. Evaluated by PT OT and recommended subacute stroke. 05/30/2020; acute CVA. Continue with aspirin and Plavix. Patient is pending acute rehab. Likely to be transferred to acute rehab on Tuesday. Discussed with case management. Will monitor his blood sugar level and adjust insulin as needed. 05/31/2020; will discharge to rehab on Tuesday. Patient agreed with the plan of care. Discussed with case management. Blood sugar is better controlled. Patient's hemoglobin A1c is 13 need insulin at discharge. History Interval history: Patient was seen and evaluated this morning Patient was complaining hiccups No focal neurologic deficit Hospitalist Physical - Physical exam Narrative exam: Not in cardiopulmonary distress. The patient appeared well nourished and normally developed. Vital signs as documented. Head exam is unremarkable. No scleral icterus . Neck is without jugular venous distension, thyromegaly, or carotid bruits. Lungs are clear to auscultation. Cardiac exam reveals regular rate and Rhythm. Abdominal exam reveals normal bowel sounds, nontender, no organomegaly. Extremities are nonedematous and both femoral and pedal pulses are normal. [employer]: Alert and oriented 3. No focal weakness. - Constitutional Vitals: Temp Pulse Resp BP Pulse Ox 98.9 F 105 H 18 152/87 98 05/31/20 05:31 05/31/20 04:21 05/31/20 04:21 05/31/20 04:21 05/31/20 04:21 General appearance: Present: no acute distress, well-nourished HEART Score - HEART Score Troponin: Troponin T 0.015 ng/mL (0.00-0.029) 05/24/20 20:03 Results - Labs CBC & Chem 7: 05/27/20 06:14 05/27/20 06:14 Labs: Laboratory Last Values WBC 9.7 K/mm3 (4.5-11.0) 05/27/20 06:14 RBC 4.77 M/mm3 (3.65-5.03) 05/27/20 06:14 Hgb 13.2 gm/dl (11.8-15.2) 05/27/20 06:14 Hct 41.2 % (35.5-45.6) D 05/27/20 06:14 MCV 86 fl (84-94) 05/27/20 06:14 MCH 28 pg (28-32) 05/27/20 06:14 MCHC 32 % (32-34) 05/27/20 06:14 RDW 14.9 % (13.2-15.2) 05/27/20 06:14 Plt Count 200 K/mm3 (140-440) 05/27/20 06:14 [place] % (Auto) Cover Remover 05/27/20 06:14 Eos % (Auto) Cover Remover 05/24/20 20:03 Add Manual Diff Complete 05/27/20 06:14 Total Counted 100 05/27/20 06:14 Seg Neuts % (Manual) 58.0 % (40.0-70.0) 05/27/20 06:14 Lymphocytes % (Manual) 29.0 % (13.4-35.0) 05/27/20 06:14 Reactive Lymphs % (Man) 1.0 % 05/25/20 07:23 Monocytes % (Manual) 12.0 % (0.0-7.3) H 05/27/20 06:14 Eosinophils % (Manual) 17.0 % (0.0-4.3) H 05/25/20 07:23 Basophils % (Manual) 1.0 % (0.0-1.8) 05/27/20 06:14 Nucleated RBC % Not Reportable 05/27/20 06:14 Seg Neutrophils # Man 5.6 K/mm3 (1.8-7.7) 05/27/20 06:14 Band Neutrophils # 0.0 K/mm3 05/27/20 06:14 Lymphocytes # (Manual) 2.8 K/mm3 (1.2-5.4) 05/27/20 06:14 Abs React Lymphs (Man) 0.0 K/mm3 05/27/20 06:14 Monocytes # (Manual) 1.2 K/mm3 (0.0-0.8) H 05/27/20 06:14 Eosinophils # (Manual) 0.0 K/mm3 (0.0-0.4) 05/27/20 06:14 Basophils # (Manual) 0.1 K/mm3 (0.0-0.1) 05/27/20 06:14 Metamyelocytes # 0.0 K/mm3 05/27/20 06:14 Myelocytes # 0.0 K/mm3 05/27/20 06:14 Promyelocytes # 0.0 K/mm3 05/27/20 06:14 Blast Cells # 0.0 K/mm3 05/27/20 06:14 WBC Morphology Not Reportable 05/27/20 06:14 Hypersegmented Neuts Not Reportable 05/27/20 06:14 Hyposegmented Neuts Not Reportable 05/27/20 06:14 Hypogranular Neuts Not Reportable 05/27/20 06:14 Smudge Cells Not Reportable 05/27/20 06:14 Toxic Granulation Not Reportable 05/27/20 06:14 Toxic Vacuolation Not Reportable 05/27/20 06:14 Dohle Bodies Not Reportable 05/27/20 06:14 Pelger-Huet Anomaly Not Reportable 05/27/20 06:14 Fercho Rods Not Reportable 05/27/20 06:14 Platelet Estimate Consistent w auto 05/27/20 06:14 Clumped Platelets Not Reportable 05/27/20 06:14 Plt Clumps, EDTA Not Reportable 05/27/20 06:14 Large Platelets Not Reportable 05/27/20 06:14 Giant Platelets Not Reportable 05/27/20 06:14 Platelet Satelliting Not Reportable 05/27/20 06:14 Plt Morphology Comment Not Reportable 05/27/20 06:14 RBC Morphology Normal 05/27/20 06:14 Dimorphic RBCs Not Reportable 05/27/20 06:14 Polychromasia Not Reportable 05/27/20 06:14 Hypochromasia Not Reportable 05/27/20 06:14 Poikilocytosis Not Reportable 05/27/20 06:14 Anisocytosis Not Reportable 05/27/20 06:14 Microcytosis Not Reportable 05/27/20 06:14 Macrocytosis Not Reportable 05/27/20 06:14 Spherocytes Not Reportable 05/27/20 06:14 Pappenheimer Bodies Not Reportable 05/27/20 06:14 Sickle Cells Not Reportable 05/27/20 06:14 Target Cells Not Reportable 05/27/20 06:14 Tear Drop Cells Not Reportable 05/27/20 06:14 Ovalocytes Not Reportable 05/27/20 06:14 Helmet Cells Not Reportable 05/27/20 06:14 Brumfield-Mcgovern Bodies Not Reportable 05/27/20 06:14 [place] Rings Not Reportable 05/27/20 06:14 [place] Cells Not Reportable 05/27/20 06:14 Bite Cells Not Reportable 05/27/20 06:14 Crenated Cell Not Reportable 05/27/20 06:14 Elliptocytes Not Reportable 05/27/20 06:14 Acanthocytes (Spur) Not Reportable 05/27/20 06:14 Rouleaux Not Reportable 05/27/20 06:14 Hemoglobin C Crystals Not Reportable 05/27/20 06:14 Schistocytes Not Reportable 05/27/20 06:14 Malaria parasites Not Reportable 05/27/20 06:14 Johnson Bodies Not Reportable 05/27/20 06:14 Hem Pathologist Commnt No 05/27/20 06:14 PT 13.0 Sec. (12.2-14.9) 05/25/20 07:23 INR 1.00 (0.87-1.13) 05/25/20 07:23 APTT 28.7 Sec. (24.2-36.6) 05/24/20 20:03 Thrombin Time 16.9 Sec. (15.1-19.6) 05/24/20 20:03 Sodium 136 mmol/L (137-145) L 05/27/20 06:14 Potassium 4.5 mmol/L (3.6-5.0) 05/27/20 06:14 Chloride 98.9 mmol/L (98-107) 05/27/20 06:14 Carbon Dioxide 27 mmol/L (22-30) 05/27/20 06:14 Anion Gap 15 mmol/L 05/27/20 06:14 BUN 27 mg/dL (9-20) H 05/27/20 06:14 Creatinine 1.3 mg/dL (0.8-1.3) 05/27/20 06:14 Estimated GFR > 60 ml/min 05/27/20 06:14 BUN/Creatinine Ratio 21 % 05/27/20 06:14 Glucose 189 mg/dL (75-100) H 05/27/20 06:14 POC Glucose 142 mg/dL (70-105) H 05/30/20 23:10 Hemoglobin A1c 13.0 % (4-6) H 05/27/20 06:14 Calcium 9.8 mg/dL (8.4-10.2) 05/27/20 06:14 Total Creatine Kinase 124 units/L (55-170) 05/24/20 20:03 CK-MB (CK-2) 2.9 ng/mL (0.0-4.0) 05/24/20 20:03 CK-MB (CK-2) Rel Index 2.3 (0-4) 05/24/20 20:03 Troponin T 0.015 ng/mL (0.00-0.029) 05/24/20 20:03 Triglycerides 29 mg/dL (2-149) 05/25/20 07:23 Cholesterol 106 mg/dL (50-199) 05/25/20 07:23 LDL Cholesterol Direct 35 mg/dL (50-130) L 05/25/20 07:23 HDL Cholesterol 72 mg/dL (40-59) H 05/25/20 07:23 Cholesterol/HDL Ratio 1.47 % 05/25/20 07:23 Urine Color Straw (Yellow) 05/24/20 Unknown Urine Turbidity Clear (Clear) 05/24/20 Unknown Urine pH 7.0 (5.0-7.0) 05/24/20 Unknown Ur Specific [place] 1.009 (1.003-1.030) 05/24/20 Unknown Urine Protein 30 mg/dl mg/dL (Negative) 05/24/20 Unknown Urine Glucose (UA) 150 mg/dL (Negative) 05/24/20 Unknown Urine Ketones Neg mg/dL (Negative) 05/24/20 Unknown Urine Blood Neg (Negative) 05/24/20 Unknown Urine Nitrite Neg (Negative) 05/24/20 Unknown Urine Bilirubin Neg (Negative) 05/24/20 Unknown Urine Urobilinogen < 2.0 mg/dL (<2.0) 05/24/20 Unknown Ur Leukocyte Esterase Neg (Negative) 05/24/20 Unknown Urine WBC (Auto) 1.0 /HPF (0.0-6.0) 05/24/20 Unknown Urine RBC (Auto) 2.0 /HPF (0.0-6.0) 05/24/20 Unknown U Epithel Cells (Auto) < 1.0 /HPF (0-13.0) 05/24/20 Unknown Urine Bacteria (Auto) 1+ /HPF (Negative) 05/24/20 Unknown Urine Mucus Few /HPF 05/24/20 Unknown Coronavirus (PCR) Positive (Negative) A 05/25/20 Unknown [place]/IV: Voiding Method Incontinent Active Medications - Current Medications Current Medications: Generic Name Dose Route Start Last Admin Trade Name Freq PRN Reason Stop Dose Admin Acetaminophen 650 mg 05/24/20 22:27 05/30/20 05:33 Acetaminophen 325 Mg Tab PO 650 mg Q4H PRN Administration Pain, Mild (1-3) Aspirin 325 mg 05/25/20 10:00 05/30/20 09:56 Aspirin 325 Mg Tab PO 325 mg QDAY FARZAD Administration Atorvastatin Calcium 40 mg 05/25/20 22:00 05/30/20 21:31 Atorvastatin 40 Mg Tab PO 40 mg QHS FARZAD Administration Baclofen 10 mg 05/28/20 20:00 05/30/20 19:57 Baclofen 10 Mg Tab PO 10 mg TID FARZAD Administration Bisacodyl 10 mg 05/24/20 22:27 Bisacodyl 10 Mg Rect Supp HI QDAY PRN Constipation Clopidogrel Bisulfate 75 mg 05/29/20 10:00 05/30/20 09:57 Clopidogrel 75 Mg Tab PO 75 mg QDAY FARZAD Administration Dexamethasone 6 mg 05/28/20 10:00 05/30/20 09:57 Dexamethasone 4 Mg Tab PO 06/03/20 12:00 6 mg DAILY FARZAD Administration Dextrose 0 ml 05/24/20 22:27 05/30/20 21:36 Dextrose 50% In Water (25gm) 50 Ml Syringe IV 15 ml Q30MIN PRN Administration Hypoglycemia Protocol Enoxaparin Sodium 40 mg 05/25/20 22:00 05/30/20 21:31 Enoxaparin 40 Mg/0.4 Ml Inj SUB-Q 40 mg QDAY@2200 [facility] Administration Protocol Insulin Glargine 20 units 05/28/20 22:00 05/30/20 23:54 Insulin Glargine 100 Units/Ml SUB-Q Not Given QHS [facility] Insulin Human Lispro 10 unit 05/29/20 11:30 05/30/20 17:25 Insulin Lispro 100 Unit/Ml SUB-Q 10 unit AC [facility] Administration Insulin Human Lispro 0 unit 05/29/20 11:30 05/30/20 23:54 Insulin Lispro 100 Unit/Ml SUB-Q Not Given ACHS [facility] Protocol Magnesium Hydroxide 30 ml 05/24/20 22:27 Magnesium Hydroxide (Mom) Oral Liqd Udc PO Q4H PRN Constipation Metoclopramide HCl 10 mg 05/24/20 22:27 05/26/20 23:22 Metoclopramide 10 Mg Tab PO 10 mg Q6H PRN Administration Nausea And Vomiting Morphine Sulfate 2 mg 05/24/20 22:27 Morphine 2 Mg/1 Ml Inj IV Q4H PRN Pain, Moderate (4-6) Ondansetron HCl 4 mg 05/24/20 22:27 Ondansetron 4 Mg/2 Ml Inj IV Q8H PRN Nausea And Vomiting Pantoprazole Sodium 40 mg 05/28/20 16:30 05/30/20 17:25 Pantoprazole 40 Mg Tab PO 40 mg BIDAC [facility] Administration Promethazine HCl 25 mg 05/24/20 22:27 Promethazine 25 Mg Rect Supp HI Q6H PRN Nausea And Vomiting Sodium Chloride 10 ml 05/25/20 10:00 05/30/20 21:32 Sodium Chloride 0.9% 10 Ml Flush Syringe IV 10 ml BID FARZAD Administration Sodium Chloride 10 ml 05/24/20 22:27 Sodium Chloride 0.9% 10 Ml Flush Syringe IV PRN PRN LINE FLUSH Nutrition/Malnutrition Assess - Dietary Evaluation Nutrition/Malnutrition Findings: Nutrition Notes Start: 05/25/20 11:32 Freq: Status: Active Protocol: Document 05/29/20 09:20 (Rec: 05/29/20 09:27 [id number]) Nutrition Notes Need for Assessment generated from: Education Initial or Follow up Brief Note Current Diagnosis Diabetes,Hypertension Other Pertinent Diagnosis COVID(+) Current Diet pureed, consistent CHO Subjective/Other Information MD order for diet education. Pt states he eats mostly fish and rice at home. Pt given portion size information. Encouraged pt to take medications. #1 Nutrition Diagnosis Limited adherence to nutrition -related recommendations Etiology unknown As Evidenced by Signs and Symptoms pt understands DM diet and A1c 13% Nutrition Intervention Teaching Recipient Patient Learning Readiness Good Teaching Methods Discussion,Handout Education Handouts Provided Planning Healthy Meals Barriers to Learning No Barriers RD phone number provided Yes Patient aware of follow up options Yes Revisit per MD consult or patient Sign Off request:
[2020-05-31] MEDS: BACLOFEN 10 MG TAB PO SCH ×3 (08:00→21:48)
[2020-05-31] MEDS: DEXAMETHASONE 4 MG TAB PO SCH (10:30)
[2020-05-31] MEDS: CLOPIDOGREL 75 MG TAB PO SCH (10:30)
[2020-05-31] MEDS: ASPIRIN 325 MG TAB PO SCH (10:30)
[2020-05-31] MEDS: ACETAMINOPHEN 325 MG TAB PO PRN (13:44)
[2020-05-31] MEDS: INSULIN GLARGINE 100 UNITS/ML SUB-Q SCH (21:48)
[2020-05-31] MEDS: ENOXAPARIN 40 MG/0.4 ML INJ SUB-Q SCH (21:48)
[2020-06-01] MEDS: PANTOPRAZOLE 40 MG TAB PO SCH ×2 (07:30→16:30)
[2020-06-01] MEDS: INSULIN LISPRO 100 UNIT/ML SUB-Q SCH ×7 (07:30→22:09)
[2020-06-01] MEDS: BACLOFEN 10 MG TAB PO SCH ×3 (08:00→19:54)
--- NOTE | 2020-06-01 08:26 | Progress Note ---
Assessment and Plan Assessment and plan: Acute CVA. Hypertension DM type 2 Suspected COVID PNA 05/25. F/U MRI brain and carotid US. Cont. ASA and Lipitor. PT eval. follow-up Covid testing. Start dexamethasone empirically until Covid testing resulted. 05/26. Carotid ultrasound negative. Await MRI brain. Neurology consultation pending. Covid PCR testing on 05/25 is positive. 05/27/2020; CT head, carotid Doppler, echo unremarkable. MRI and EEG evaluation is pending. Patient is positive for Covid does not have any symptoms. She was evaluated by ID and no treatment is needed. Was evaluated by physical therapy recommend acute rehab. Disposition; acute rehab after neurology evaluation and MRI completed. 05/28; MRI was done; 1.5 x 0.7 cm subacute ischemic infarct in the right gangliocapsular region. Chronic focal infarcts in the right thalamus, genu of the right internal capsule, body of the left corpus callosum and left marc. No need for Covid treatment. Neurology evaluation is pending. PT evaluated and recommend subacute rehab. Blood sugar is uncontrolled, I added Lantus in addition to sliding scale insulin. Will check A1c. Neurology evaluated and recommend aspirin, and Plavix for 21 days. 05/29/20; patient was evaluated by neurology and recommend to continue current management. Patient was seen by ID and she is on dexamethasone. Hemoglobin A1c is 13.1. Continue with aspirin and Plavix. Evaluated by PT OT and recommended subacute stroke. 05/30/2020; acute CVA. Continue with aspirin and Plavix. Patient is pending acute rehab. Likely to be transferred to acute rehab on Tuesday. Discussed with case management. Will monitor his blood sugar level and adjust insulin as needed. 05/31/2020; will discharge to rehab on Tuesday. Patient agreed with the plan of care. Discussed with case management. Blood sugar is better controlled. Patient's hemoglobin A1c is 13 need insulin at discharge. 06/01/2020; patient will be discharged tomorrow to acute rehab. Discussed with case management. Patient need insulin adjustment at discharge. A1c is 13. History Interval history: Patient was seen and evaluated this morning Patient was complaining hiccups No focal neurologic deficit Hospitalist Physical - Physical exam Narrative exam: Not in cardiopulmonary distress. The patient appeared well nourished and normally developed. Vital signs as documented. Head exam is unremarkable. No scleral icterus . Neck is without jugular venous distension, thyromegaly, or carotid bruits. Lungs are clear to auscultation. Cardiac exam reveals regular rate and Rhythm. Abdominal exam reveals normal bowel sounds, nontender, no organomegaly. Extremities are nonedematous and both femoral and pedal pulses are normal. LACQUER MAKER: Alert and oriented 3. No focal weakness. - Constitutional Vitals: Temp Pulse Resp BP Pulse Ox 98.0 F 99 H 20 159/67 96 06/01/20 03:48 06/01/20 03:48 06/01/20 03:48 06/01/20 03:48 06/01/20 03:48 General appearance: Present: no acute distress, well-nourished HEART Score - HEART Score Troponin: Troponin T 0.015 ng/mL (0.00-0.029) 05/24/20 20:03 Results - Labs CBC & Chem 7: 05/27/20 06:14 05/27/20 06:14 Labs: Laboratory Last Values WBC 9.7 K/mm3 (4.5-11.0) 05/27/20 06:14 RBC 4.77 M/mm3 (3.65-5.03) 05/27/20 06:14 Hgb 13.2 gm/dl (11.8-15.2) 05/27/20 06:14 Hct 41.2 % (35.5-45.6) D 05/27/20 06:14 MCV 86 fl (84-94) 05/27/20 06:14 MCH 28 pg (28-32) 05/27/20 06:14 MCHC 32 % (32-34) 05/27/20 06:14 RDW 14.9 % (13.2-15.2) 05/27/20 06:14 Plt Count 200 K/mm3 (140-440) 05/27/20 06:14 [place] % (Auto) Senior Software Qa Engineer 05/27/20 06:14 Eos % (Auto) Senior Software Qa Engineer 05/24/20 20:03 Add Manual Diff Complete 05/27/20 06:14 Total Counted 100 05/27/20 06:14 Seg Neuts % (Manual) 58.0 % (40.0-70.0) 05/27/20 06:14 Lymphocytes % (Manual) 29.0 % (13.4-35.0) 05/27/20 06:14 Reactive Lymphs % (Man) 1.0 % 05/25/20 07:23 Monocytes % (Manual) 12.0 % (0.0-7.3) H 05/27/20 06:14 Eosinophils % (Manual) 17.0 % (0.0-4.3) H 05/25/20 07:23 Basophils % (Manual) 1.0 % (0.0-1.8) 05/27/20 06:14 Nucleated RBC % Not Reportable 05/27/20 06:14 Seg Neutrophils # Man 5.6 K/mm3 (1.8-7.7) 05/27/20 06:14 Band Neutrophils # 0.0 K/mm3 05/27/20 06:14 Lymphocytes # (Manual) 2.8 K/mm3 (1.2-5.4) 05/27/20 06:14 Abs React Lymphs (Man) 0.0 K/mm3 05/27/20 06:14 Monocytes # (Manual) 1.2 K/mm3 (0.0-0.8) H 05/27/20 06:14 Eosinophils # (Manual) 0.0 K/mm3 (0.0-0.4) 05/27/20 06:14 Basophils # (Manual) 0.1 K/mm3 (0.0-0.1) 05/27/20 06:14 Metamyelocytes # 0.0 K/mm3 05/27/20 06:14 Myelocytes # 0.0 K/mm3 05/27/20 06:14 Promyelocytes # 0.0 K/mm3 05/27/20 06:14 Blast Cells # 0.0 K/mm3 05/27/20 06:14 WBC Morphology Not Reportable 05/27/20 06:14 Hypersegmented Neuts Not Reportable 05/27/20 06:14 Hyposegmented Neuts Not Reportable 05/27/20 06:14 Hypogranular Neuts Not Reportable 05/27/20 06:14 Smudge Cells Not Reportable 05/27/20 06:14 Toxic Granulation Not Reportable 05/27/20 06:14 Toxic Vacuolation Not Reportable 05/27/20 06:14 Dohle Bodies Not Reportable 05/27/20 06:14 Pelger-Huet Anomaly Not Reportable 05/27/20 06:14 Fercho Rods Not Reportable 05/27/20 06:14 Platelet Estimate Consistent w auto 05/27/20 06:14 Clumped Platelets Not Reportable 05/27/20 06:14 Plt Clumps, EDTA Not Reportable 05/27/20 06:14 Large Platelets Not Reportable 05/27/20 06:14 Giant Platelets Not Reportable 05/27/20 06:14 Platelet Satelliting Not Reportable 05/27/20 06:14 Plt Morphology Comment Not Reportable 05/27/20 06:14 RBC Morphology Normal 05/27/20 06:14 Dimorphic RBCs Not Reportable 05/27/20 06:14 Polychromasia Not Reportable 05/27/20 06:14 Hypochromasia Not Reportable 05/27/20 06:14 Poikilocytosis Not Reportable 05/27/20 06:14 Anisocytosis Not Reportable 05/27/20 06:14 Microcytosis Not Reportable 05/27/20 06:14 Macrocytosis Not Reportable 05/27/20 06:14 Spherocytes Not Reportable 05/27/20 06:14 Pappenheimer Bodies Not Reportable 05/27/20 06:14 Sickle Cells Not Reportable 05/27/20 06:14 Target Cells Not Reportable 05/27/20 06:14 Tear Drop Cells Not Reportable 05/27/20 06:14 Ovalocytes Not Reportable 05/27/20 06:14 Helmet Cells Not Reportable 05/27/20 06:14 Brumfield-B[place]ong Bodies Not Reportable 05/27/20 06:14 [place] Rings Not Reportable 05/27/20 06:14 Zarina Cells Not Reportable 05/27/20 06:14 Bite Cells Not Reportable 05/27/20 06:14 Crenated Cell Not Reportable 05/27/20 06:14 Elliptocytes Not Reportable 05/27/20 06:14 Acanthocytes (Spur) Not Reportable 05/27/20 06:14 Rouleaux Not Reportable 05/27/20 06:14 Hemoglobin C Crystals Not Reportable 05/27/20 06:14 Schistocytes Not Reportable 05/27/20 06:14 Malaria parasites Not Reportable 05/27/20 06:14 Johnson Bodies Not Reportable 05/27/20 06:14 Hem Pathologist Commnt No 05/27/20 06:14 PT 13.0 Sec. (12.2-14.9) 05/25/20 07:23 INR 1.00 (0.87-1.13) 05/25/20 07:23 APTT 28.7 Sec. (24.2-36.6) 05/24/20 20:03 Thrombin Time 16.9 Sec. (15.1-19.6) 05/24/20 20:03 Sodium 136 mmol/L (137-145) L 05/27/20 06:14 Potassium 4.5 mmol/L (3.6-5.0) 05/27/20 06:14 Chloride 98.9 mmol/L (98-107) 05/27/20 06:14 Carbon Dioxide 27 mmol/L (22-30) 05/27/20 06:14 Anion Gap 15 mmol/L 05/27/20 06:14 BUN 27 mg/dL (9-20) H 05/27/20 06:14 Creatinine 1.3 mg/dL (0.8-1.3) 05/27/20 06:14 Estimated GFR > 60 ml/min 05/27/20 06:14 BUN/Creatinine Ratio 21 % 05/27/20 06:14 Glucose 189 mg/dL (75-100) H 05/27/20 06:14 POC Glucose 347 mg/dL (70-105) H 05/31/20 21:54 Hemoglobin A1c 13.0 % (4-6) H 05/27/20 06:14 Calcium 9.8 mg/dL (8.4-10.2) 05/27/20 06:14 Total Creatine Kinase 124 units/L (55-170) 05/24/20 20:03 CK-MB (CK-2) 2.9 ng/mL (0.0-4.0) 05/24/20 20:03 CK-MB (CK-2) Rel Index 2.3 (0-4) 05/24/20 20:03 Troponin T 0.015 ng/mL (0.00-0.029) 05/24/20 20:03 Triglycerides 29 mg/dL (2-149) 05/25/20 07:23 Cholesterol 106 mg/dL (50-199) 05/25/20 07:23 LDL Cholesterol Direct 35 mg/dL (50-130) L 05/25/20 07:23 HDL Cholesterol 72 mg/dL (40-59) H 05/25/20 07:23 Cholesterol/HDL Ratio 1.47 % 05/25/20 07:23 Urine Color Straw (Yellow) 05/24/20 Unknown Urine Turbidity Clear (Clear) 05/24/20 Unknown Urine pH 7.0 (5.0-7.0) 05/24/20 Unknown Ur Specific [place] 1.009 (1.003-1.030) 05/24/20 Unknown Urine Protein 30 mg/dl mg/dL (Negative) 05/24/20 Unknown Urine Glucose (UA) 150 mg/dL (Negative) 05/24/20 Unknown Urine Ketones Neg mg/dL (Negative) 05/24/20 Unknown Urine Blood Neg (Negative) 05/24/20 Unknown Urine Nitrite Neg (Negative) 05/24/20 Unknown Urine Bilirubin Neg (Negative) 05/24/20 Unknown Urine Urobilinogen < 2.0 mg/dL (<2.0) 05/24/20 Unknown Ur Leukocyte Esterase Neg (Negative) 05/24/20 Unknown Urine WBC (Auto) 1.0 /HPF (0.0-6.0) 05/24/20 Unknown Urine RBC (Auto) 2.0 /HPF (0.0-6.0) 05/24/20 Unknown U Epithel Cells (Auto) < 1.0 /HPF (0-13.0) 05/24/20 Unknown Urine Bacteria (Auto) 1+ /HPF (Negative) 05/24/20 Unknown Urine Mucus Few /HPF 05/24/20 Unknown Coronavirus (PCR) Positive (Negative) A 05/25/20 Unknown [place]arez/IV: Voiding Method Condom Catheter Active Medications - Current Medications Current Medications: Generic Name Dose Route Start Last Admin Trade Name Freq PRN Reason Stop Dose Admin Acetaminophen 650 mg 05/24/20 22:27 05/31/20 13:44 Acetaminophen 325 Mg Tab PO 650 mg Q4H PRN Administration Pain, Mild (1-3) Aspirin 325 mg 05/25/20 10:00 05/31/20 10:30 Aspirin 325 Mg Tab PO 325 mg QDAY FARZAD Administration Atorvastatin Calcium 40 mg 05/25/20 22:00 05/31/20 21:48 Atorvastatin 40 Mg Tab PO 40 mg QHS FARZAD Administration Baclofen 10 mg 05/28/20 20:00 05/31/20 21:48 Baclofen 10 Mg Tab PO 10 mg TID FARZAD Administration Bisacodyl 10 mg 05/24/20 22:27 Bisacodyl 10 Mg Rect Supp MD QDAY PRN Constipation Clopidogrel Bisulfate 75 mg 05/29/20 10:00 05/31/20 10:30 Clopidogrel 75 Mg Tab PO 75 mg QDAY FARZAD Administration Dexamethasone 6 mg 05/28/20 10:00 05/31/20 10:30 Dexamethasone 4 Mg Tab PO 06/03/20 12:00 6 mg DAILY FARZAD Administration Dextrose 0 ml 05/24/20 22:27 05/30/20 21:36 Dextrose 50% In Water (25gm) 50 Ml Syringe IV 15 ml Q30MIN PRN Administration Hypoglycemia Protocol Enoxaparin Sodium 40 mg 05/25/20 22:00 05/31/20 21:48 Enoxaparin 40 Mg/0.4 Ml Inj SUB-Q 40 mg QDAY@2200 FARZAD Administration Protocol Insulin Glargine 20 units 05/28/20 22:00 05/31/20 21:48 Insulin Glargine 100 Units/Ml SUB-Q 20 units QHS FARZAD Administration Insulin Human Lispro 10 unit 05/29/20 11:30 05/31/20 16:30 Insulin Lispro 100 Unit/Ml SUB-Q 10 unit AC FARZAD Administration Insulin Human Lispro 0 unit 05/29/20 11:30 05/31/20 21:58 Insulin Lispro 100 Unit/Ml SUB-Q 6 unit ACHS FARZAD Administration Protocol Magnesium Hydroxide 30 ml 05/24/20 22:27 Magnesium Hydroxide (Mom) Oral Liqd Udc PO Q4H PRN Constipation Metoclopramide HCl 10 mg 05/24/20 22:27 05/26/20 23:22 Metoclopramide 10 Mg Tab PO 10 mg Q6H PRN Administration Nausea And Vomiting Morphine Sulfate 2 mg 05/24/20 22:27 Morphine 2 Mg/1 Ml Inj IV Q4H PRN Pain, Moderate (4-6) Ondansetron HCl 4 mg 05/24/20 22:27 Ondansetron 4 Mg/2 Ml Inj IV Q8H PRN Nausea And Vomiting Pantoprazole Sodium 40 mg 05/28/20 16:30 05/31/20 16:30 Pantoprazole 40 Mg Tab PO 40 mg BIDAC FARZAD Administration Promethazine HCl 25 mg 05/24/20 22:27 Promethazine 25 Mg Rect Supp MD Q6H PRN Nausea And Vomiting Sodium Chloride 10 ml 05/25/20 10:00 05/31/20 21:48 Sodium Chloride 0.9% 10 Ml Flush Syringe IV 10 ml BID FARZAD Administration Sodium Chloride 10 ml 05/24/20 22:27 Sodium Chloride 0.9% 10 Ml Flush Syringe IV PRN PRN LINE FLUSH Nutrition/Malnutrition Assess - Dietary Evaluation Nutrition/Malnutrition Findings: Nutrition Notes Start: 05/25/20 11:32 Freq: Status: Active Protocol: Document 05/29/20 09:20 ANNIA (Rec: 05/29/20 09:27 [id number]) Nutrition Notes Need for Assessment generated from: Education Initial or Follow up Brief Note Current Diagnosis Diabetes,Hypertension Other Pertinent Diagnosis COVID(+) Current Diet pureed, consistent CHO Subjective/Other Information MD order for diet education. Pt states he eats mostly fish and rice at home. Pt given portion size information. Encouraged pt to take medications. #1 Nutrition Diagnosis Limited adherence to nutrition -related recommendations Etiology unknown As Evidenced by Signs and Symptoms pt understands DM diet and A1c 13% Nutrition Intervention Teaching Recipient Patient Learning Readiness Good Teaching Methods Discussion,Handout Education Handouts Provided Planning Healthy Meals Barriers to Learning No Barriers RD phone number provided Yes Patient aware of follow up options Yes Revisit per MD consult or patient Sign Off request:
[2020-06-01] MEDS: DEXAMETHASONE 4 MG TAB PO SCH (10:01)
[2020-06-01] MEDS: ASPIRIN 325 MG TAB PO SCH (10:02)
[2020-06-01] MEDS: CLOPIDOGREL 75 MG TAB PO SCH (10:02)
[2020-06-01] MEDS: INSULIN GLARGINE 100 UNITS/ML SUB-Q SCH (22:09)
[2020-06-01] MEDS: ENOXAPARIN 40 MG/0.4 ML INJ SUB-Q SCH (22:10)
[2020-06-02] MEDS ORDERED: chlorproMAZINE 25 MG TAB PO PRN (01:38)
[2020-06-02] MEDS: INSULIN LISPRO 100 UNIT/ML SUB-Q SCH ×6 (07:30→22:05)
[2020-06-02] MEDS: ASPIRIN 325 MG TAB PO SCH (12:10)
[2020-06-02] MEDS: DEXAMETHASONE 4 MG TAB PO SCH (12:11)
[2020-06-02] MEDS: CLOPIDOGREL 75 MG TAB PO SCH (12:11)
[2020-06-02] MEDS: PANTOPRAZOLE 40 MG TAB PO SCH ×2 (12:24→17:18)
[2020-06-02] MEDS: BACLOFEN 10 MG TAB PO SCH ×3 (12:24→21:53)
--- NOTE | 2020-06-02 12:28 | Progress Note ---
Assessment and Plan Assessment and plan: Acute CVA. Hypertension DM type 2 COVID PNA 05/25. F/U MRI brain and carotid US. Cont. ASA and Lipitor. PT eval. follow-up Covid testing. Start dexamethasone empirically until Covid testing resulted. 05/26. Carotid ultrasound negative. Await MRI brain. Neurology consultation pending. Covid PCR testing on 05/25 is positive. 05/27/2020; CT head, carotid Doppler, echo unremarkable. MRI and EEG evaluation is pending. Patient is positive for Covid does not have any symptoms. She was evaluated by ID and no treatment is needed. Was evaluated by physical therapy recommend acute rehab. Disposition; acute rehab after neurology evaluation and MRI completed. 05/28; MRI was done; 1.5 x 0.7 cm subacute ischemic infarct in the right gangliocapsular region. Chronic focal infarcts in the right thalamus, genu of the right internal capsule, body of the left corpus callosum and left marc. No need for Covid treatment. Neurology evaluation is pending. PT evaluated and recommend subacute rehab. Blood sugar is uncontrolled, I added Lantus in addition to sliding scale insulin. Will check A1c. Neurology evaluated and recommend aspirin, and Plavix for 21 days. 05/29/20; patient was evaluated by neurology and recommend to continue current management. Patient was seen by ID and she is on dexamethasone. Hemoglobin A1c is 13.1. Continue with aspirin and Plavix. Evaluated by PT OT and recommended subacute stroke. 05/30/2020; acute CVA. Continue with aspirin and Plavix. Patient is pending acute rehab. Likely to be transferred to acute rehab on Tuesday. Discussed with case management. Will monitor his blood sugar level and adjust insulin as needed. 05/31/2020; will discharge to rehab on Tuesday. Patient agreed with the plan of care. Discussed with case management. Blood sugar is better controlled. Patient's hemoglobin A1c is 13 need insulin at discharge. 06/01/2020; patient will be discharged tomorrow to acute rehab. Discussed with case management. Patient need insulin adjustment at discharge. A1c is 13. 06/02: Findings on A1c of 13 discussed with the patient will need insulin on discharge. Extensive discussion with the patient and case management awaiting placement. We will also adjust insulin as blood sugar still elevated may need a repeat Covid test. Continue daily reevaluation of oxygen need History Interval history: Patient seen and examined remains on oxygen 2 L no new complaints. Motor strength is symmetrical. Hospitalist Physical - Physical exam Narrative exam: Not in cardiopulmonary distress. Otherwise on oxygen 2 L The patient appeared well nourished and normally developed. Vital signs as documented. Head exam is unremarkable. No scleral icterus . Neck is without jugular venous distension, thyromegaly, or carotid bruits. Lungs are clear to auscultation. Cardiac exam reveals regular rate and Rhythm. Abdominal exam reveals normal bowel sounds, nontender, no organomegaly. Extremities are nonedematous and both femoral and pedal pulses are normal. 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 No focal weakness. - Constitutional Vitals: Temp Pulse Resp BP Pulse Ox 97.5 F L 88 16 147/86 97 06/02/20 04:24 06/01/20 21:27 06/02/20 04:24 06/02/20 04:24 06/01/20 22:00 General appearance: Present: no acute distress, well-nourished HEART Score - HEART Score Troponin: Troponin T 0.015 ng/mL (0.00-0.029) 05/24/20 20:03 Results - Labs CBC & Chem 7: 05/27/20 06:14 05/27/20 06:14 Labs: Laboratory Last Values WBC 9.7 K/mm3 (4.5-11.0) 05/27/20 06:14 RBC 4.77 M/mm3 (3.65-5.03) 05/27/20 06:14 Hgb 13.2 gm/dl (11.8-15.2) 05/27/20 06:14 Hct 41.2 % (35.5-45.6) D 05/27/20 06:14 MCV 86 fl (84-94) 05/27/20 06:14 MCH 28 pg (28-32) 05/27/20 06:14 MCHC 32 % (32-34) 05/27/20 06:14 RDW 14.9 % (13.2-15.2) 05/27/20 06:14 Plt Count 200 K/mm3 (140-440) 05/27/20 06:14 [place] % (Auto) Software Technician 05/27/20 06:14 Eos % (Auto) Software Technician 05/24/20 20:03 Add Manual Diff Complete 05/27/20 06:14 Total Counted 100 05/27/20 06:14 Seg Neuts % (Manual) 58.0 % (40.0-70.0) 05/27/20 06:14 Lymphocytes % (Manual) 29.0 % (13.4-35.0) 05/27/20 06:14 Reactive Lymphs % (Man) 1.0 % 05/25/20 07:23 Monocytes % (Manual) 12.0 % (0.0-7.3) H 05/27/20 06:14 Eosinophils % (Manual) 17.0 % (0.0-4.3) H 05/25/20 07:23 Basophils % (Manual) 1.0 % (0.0-1.8) 05/27/20 06:14 Nucleated RBC % Not Reportable 05/27/20 06:14 Seg Neutrophils # Man 5.6 K/mm3 (1.8-7.7) 05/27/20 06:14 Band Neutrophils # 0.0 K/mm3 05/27/20 06:14 Lymphocytes # (Manual) 2.8 K/mm3 (1.2-5.4) 05/27/20 06:14 Abs React Lymphs (Man) 0.0 K/mm3 05/27/20 06:14 Monocytes # (Manual) 1.2 K/mm3 (0.0-0.8) H 05/27/20 06:14 Eosinophils # (Manual) 0.0 K/mm3 (0.0-0.4) 05/27/20 06:14 Basophils # (Manual) 0.1 K/mm3 (0.0-0.1) 05/27/20 06:14 Metamyelocytes # 0.0 K/mm3 05/27/20 06:14 Myelocytes # 0.0 K/mm3 05/27/20 06:14 Promyelocytes # 0.0 K/mm3 05/27/20 06:14 Blast Cells # 0.0 K/mm3 05/27/20 06:14 WBC Morphology Not Reportable 05/27/20 06:14 Hypersegmented Neuts Not Reportable 05/27/20 06:14 Hyposegmented Neuts Not Reportable 05/27/20 06:14 Hypogranular Neuts Not Reportable 05/27/20 06:14 Smudge Cells Not Reportable 05/27/20 06:14 Toxic Granulation Not Reportable 05/27/20 06:14 Toxic Vacuolation Not Reportable 05/27/20 06:14 Dohle Bodies Not Reportable 05/27/20 06:14 Pelger-Huet Anomaly Not Reportable 05/27/20 06:14 Fercho Rods Not Reportable 05/27/20 06:14 Platelet Estimate Consistent w auto 05/27/20 06:14 Clumped Platelets Not Reportable 05/27/20 06:14 Plt Clumps, EDTA Not Reportable 05/27/20 06:14 Large Platelets Not Reportable 05/27/20 06:14 Giant Platelets Not Reportable 05/27/20 06:14 Platelet Satelliting Not Reportable 05/27/20 06:14 Plt Morphology Comment Not Reportable 05/27/20 06:14 RBC Morphology Normal 05/27/20 06:14 Dimorphic RBCs Not Reportable 05/27/20 06:14 Polychromasia Not Reportable 05/27/20 06:14 Hypochromasia Not Reportable 05/27/20 06:14 Poikilocytosis Not Reportable 05/27/20 06:14 Anisocytosis Not Reportable 05/27/20 06:14 Microcytosis Not Reportable 05/27/20 06:14 Macrocytosis Not Reportable 05/27/20 06:14 Spherocytes Not Reportable 05/27/20 06:14 Pappenheimer Bodies Not Reportable 05/27/20 06:14 Sickle Cells Not Reportable 05/27/20 06:14 Target Cells Not Reportable 05/27/20 06:14 Tear Drop Cells Not Reportable 05/27/20 06:14 Ovalocytes Not Reportable 05/27/20 06:14 Helmet Cells Not Reportable 05/27/20 06:14 Brumfield-Iyanbito Bodies Not Reportable 05/27/20 06:14 [place] Rings Not Reportable 05/27/20 06:14 Kerby Cells Not Reportable 05/27/20 06:14 Bite Cells Not Reportable 05/27/20 06:14 Crenated Cell Not Reportable 05/27/20 06:14 Elliptocytes Not Reportable 05/27/20 06:14 Acanthocytes (Spur) Not Reportable 05/27/20 06:14 Rouleaux Not Reportable 05/27/20 06:14 Hemoglobin C Crystals Not Reportable 05/27/20 06:14 Schistocytes Not Reportable 05/27/20 06:14 Malaria parasites Not Reportable 05/27/20 06:14 Johnson Bodies Not Reportable 05/27/20 06:14 Hem Pathologist Commnt No 05/27/20 06:14 PT 13.0 Sec. (12.2-14.9) 05/25/20 07:23 INR 1.00 (0.87-1.13) 05/25/20 07:23 APTT 28.7 Sec. (24.2-36.6) 05/24/20 20:03 Thrombin Time 16.9 Sec. (15.1-19.6) 05/24/20 20:03 Sodium 136 mmol/L (137-145) L 05/27/20 06:14 Potassium 4.5 mmol/L (3.6-5.0) 05/27/20 06:14 Chloride 98.9 mmol/L (98-107) 05/27/20 06:14 Carbon Dioxide 27 mmol/L (22-30) 05/27/20 06:14 Anion Gap 15 mmol/L 05/27/20 06:14 BUN 27 mg/dL (9-20) H 05/27/20 06:14 Creatinine 1.3 mg/dL (0.8-1.3) 05/27/20 06:14 Estimated GFR > 60 ml/min 05/27/20 06:14 BUN/Creatinine Ratio 21 % 05/27/20 06:14 Glucose 189 mg/dL (75-100) H 05/27/20 06:14 POC Glucose 312 mg/dL (70-105) H 06/02/20 07:31 Hemoglobin A1c 13.0 % (4-6) H 05/27/20 06:14 Calcium 9.8 mg/dL (8.4-10.2) 05/27/20 06:14 Total Creatine Kinase 124 units/L (55-170) 05/24/20 20:03 CK-MB (CK-2) 2.9 ng/mL (0.0-4.0) 05/24/20 20:03 CK-MB (CK-2) Rel Index 2.3 (0-4) 05/24/20 20:03 Troponin T 0.015 ng/mL (0.00-0.029) 05/24/20 20:03 Triglycerides 29 mg/dL (2-149) 05/25/20 07:23 Cholesterol 106 mg/dL (50-199) 05/25/20 07:23 LDL Cholesterol Direct 35 mg/dL (50-130) L 05/25/20 07:23 HDL Cholesterol 72 mg/dL (40-59) H 05/25/20 07:23 Cholesterol/HDL Ratio 1.47 % 05/25/20 07:23 Urine Color Straw (Yellow) 05/24/20 Unknown Urine Turbidity Clear (Clear) 05/24/20 Unknown Urine pH 7.0 (5.0-7.0) 05/24/20 Unknown Ur Specific [place] 1.009 (1.003-1.030) 05/24/20 Unknown Urine Protein 30 mg/dl mg/dL (Negative) 05/24/20 Unknown Urine Glucose (UA) 150 mg/dL (Negative) 05/24/20 Unknown Urine Ketones Neg mg/dL (Negative) 05/24/20 Unknown Urine Blood Neg (Negative) 05/24/20 Unknown Urine Nitrite Neg (Negative) 05/24/20 Unknown Urine Bilirubin Neg (Negative) 05/24/20 Unknown Urine Urobilinogen < 2.0 mg/dL (<2.0) 05/24/20 Unknown Ur Leukocyte Esterase Neg (Negative) 05/24/20 Unknown Urine WBC (Auto) 1.0 /HPF (0.0-6.0) 05/24/20 Unknown Urine RBC (Auto) 2.0 /HPF (0.0-6.0) 05/24/20 Unknown U Epithel Cells (Auto) < 1.0 /HPF (0-13.0) 05/24/20 Unknown Urine Bacteria (Auto) 1+ /HPF (Negative) 05/24/20 Unknown Urine Mucus Few /HPF 05/24/20 Unknown Coronavirus (PCR) Positive (Negative) A 05/25/20 Unknown Juarez/IV: Voiding Method Incontinent Active Medications - Current Medications Current Medications: Generic Name Dose Route Start Last Admin Trade Name Freq PRN Reason Stop Dose Admin Acetaminophen 650 mg 05/24/20 22:27 05/31/20 13:44 Acetaminophen 325 Mg Tab PO 650 mg Q4H PRN Administration Pain, Mild (1-3) Aspirin 325 mg 05/25/20 10:00 06/02/20 12:10 Aspirin 325 Mg Tab PO 325 mg QDAY FARZAD Administration Atorvastatin Calcium 40 mg 05/25/20 22:00 06/01/20 22:11 Atorvastatin 40 Mg Tab PO 40 mg QHS FARZAD Administration Baclofen 10 mg 05/28/20 20:00 06/02/20 12:24 Baclofen 10 Mg Tab PO 10 mg TID FARZAD Administration Bisacodyl 10 mg 05/24/20 22:27 Bisacodyl 10 Mg Rect Supp MI QDAY PRN Constipation Chlorpromazine HCl 75 mg 06/02/20 01:38 Chlorpromazine 25 Mg Tab PO BID PRN Hiccups Clopidogrel Bisulfate 75 mg 05/29/20 10:00 06/02/20 12:11 Clopidogrel 75 Mg Tab PO 75 mg QDAY FARZAD Administration Dexamethasone 6 mg 05/28/20 10:00 06/02/20 12:11 Dexamethasone 4 Mg Tab PO 06/03/20 12:00 6 mg DAILY FARZAD Administration Dextrose 0 ml 05/24/20 22:27 05/30/20 21:36 Dextrose 50% In Water (25gm) 50 Ml Syringe IV 15 ml Q30MIN PRN Administration Hypoglycemia Protocol Enoxaparin Sodium 40 mg 05/25/20 22:00 06/01/20 22:10 Enoxaparin 40 Mg/0.4 Ml Inj SUB-Q 40 mg QDAY@2200 [facility] Administration Protocol Insulin Glargine 20 units 05/28/20 22:00 06/01/20 22:09 Insulin Glargine 100 Units/Ml SUB-Q 20 units QHS FARZAD Administration Insulin Human Lispro 0 unit 05/29/20 11:30 06/02/20 11:30 Insulin Lispro 100 Unit/Ml SUB-Q 3 unit ACHS [facility] Administration Protocol Insulin Human Lispro 12 unit 06/01/20 08:26 06/02/20 11:30 Insulin Lispro 100 Unit/Ml SUB-Q 12 unit AC FARZAD Administration Magnesium Hydroxide 30 ml 05/24/20 22:27 Magnesium Hydroxide (Mom) Oral Liqd Udc PO Q4H PRN Constipation Metoclopramide HCl 10 mg 05/24/20 22:27 05/26/20 23:22 Metoclopramide 10 Mg Tab PO 10 mg Q6H PRN Administration Nausea And Vomiting Morphine Sulfate 2 mg 05/24/20 22:27 Morphine 2 Mg/1 Ml Inj IV Q4H PRN Pain, Moderate (4-6) Ondansetron HCl 4 mg 05/24/20 22:27 Ondansetron 4 Mg/2 Ml Inj IV Q8H PRN Nausea And Vomiting Pantoprazole Sodium 40 mg 05/28/20 16:30 06/02/20 12:24 Pantoprazole 40 Mg Tab PO 40 mg BIDAC FARZAD Administration Promethazine HCl 25 mg 05/24/20 22:27 Promethazine 25 Mg Rect Supp MI Q6H PRN Nausea And Vomiting Sodium Chloride 10 ml 05/25/20 10:00 06/02/20 12:23 Sodium Chloride 0.9% 10 Ml Flush Syringe IV 10 ml BID FARZAD Administration Sodium Chloride 10 ml 05/24/20 22:27 Sodium Chloride 0.9% 10 Ml Flush Syringe IV PRN PRN LINE FLUSH Nutrition/Malnutrition Assess - Dietary Evaluation Nutrition/Malnutrition Findings: Nutrition Notes Start: 05/25/20 11:32 Freq: Status: Active Protocol: Document 05/29/20 09:20 (Rec: 05/29/20 09:27 [email or web address]) Nutrition Notes Need for Assessment generated from: Education Initial or Follow up Brief Note Current Diagnosis Diabetes,Hypertension Other Pertinent Diagnosis COVID(+) Current Diet pureed, consistent CHO Subjective/Other Information MD order for diet education. Pt states he eats mostly fish and rice at home. Pt given portion size information. Encouraged pt to take medications. #1 Nutrition Diagnosis Limited adherence to nutrition -related recommendations Etiology unknown As Evidenced by Signs and Symptoms pt understands DM diet and A1c 13% Nutrition Intervention Teaching Recipient Patient Learning Readiness Good Teaching Methods Discussion,Handout Education Handouts Provided Planning Healthy Meals Barriers to Learning No Barriers RD phone number provided Yes Patient aware of follow up options Yes Revisit per MD consult or patient Sign Off request:
[2020-06-02] MEDS: ENOXAPARIN 40 MG/0.4 ML INJ SUB-Q SCH (21:53)
[2020-06-02] MEDS: INSULIN GLARGINE 100 UNITS/ML SUB-Q SCH (22:06)
[2020-06-03] MEDS: BACLOFEN 10 MG TAB PO SCH ×3 (09:03→20:30)
[2020-06-03] MEDS: DEXAMETHASONE 4 MG TAB PO SCH (09:03)
[2020-06-03] MEDS: INSULIN LISPRO 100 UNIT/ML SUB-Q SCH ×7 (09:03→21:58)
[2020-06-03] MEDS: PANTOPRAZOLE 40 MG TAB PO SCH ×2 (09:04→17:42)
[2020-06-03] MEDS: CLOPIDOGREL 75 MG TAB PO SCH (09:04)
[2020-06-03] MEDS: ASPIRIN 325 MG TAB PO SCH (09:04)
--- NOTE | 2020-06-03 12:00 | Progress Note ---
Assessment and Plan Assessment and plan: Acute CVA. Hypertension DM type 2 COVID PNA 05/25. F/U MRI brain and carotid US. Cont. ASA and Lipitor. PT eval. follow-up Covid testing. Start dexamethasone empirically until Covid testing resulted. 05/26. Carotid ultrasound negative. Await MRI brain. Neurology consultation pending. Covid PCR testing on 05/25 is positive. 05/27/2020; CT head, carotid Doppler, echo unremarkable. MRI and EEG evaluation is pending. Patient is positive for Covid does not have any symptoms. She was evaluated by ID and no treatment is needed. Was evaluated by physical therapy recommend acute rehab. Disposition; acute rehab after neurology evaluation and MRI completed. 05/28; MRI was done; 1.5 x 0.7 cm subacute ischemic infarct in the right gangliocapsular region. Chronic focal infarcts in the right thalamus, genu of the right internal capsule, body of the left corpus callosum and left marc. No need for Covid treatment. Neurology evaluation is pending. PT evaluated and recommend subacute rehab. Blood sugar is uncontrolled, I added Lantus in addition to sliding scale insulin. Will check A1c. Neurology evaluated and recommend aspirin, and Plavix for 21 days. 05/29/20; patient was evaluated by neurology and recommend to continue current management. Patient was seen by ID and she is on dexamethasone. Hemoglobin A1c is 13.1. Continue with aspirin and Plavix. Evaluated by PT OT and recommended subacute stroke. 05/30/2020; acute CVA. Continue with aspirin and Plavix. Patient is pending acute rehab. Likely to be transferred to acute rehab on Tuesday. Discussed with case management. Will monitor his blood sugar level and adjust insulin as needed. 05/31/2020; will discharge to rehab on Tuesday. Patient agreed with the plan of care. Discussed with case management. Blood sugar is better controlled. Patient's hemoglobin A1c is 13 need insulin at discharge. 06/01/2020; patient will be discharged tomorrow to acute rehab. Discussed with case management. Patient need insulin adjustment at discharge. A1c is 13. 06/02: Findings on A1c of 13 discussed with the patient will need insulin on discharge. Extensive discussion with the patient and case management awaiting placement. We will also adjust insulin as blood sugar still elevated may need a repeat Covid test. Continue daily reevaluation of oxygen need 06/03: Continue supportive care, wean oxygen as tolerated. awaiting placement, continue Rehab in house. History Interval history: Patient seen and examined remains on oxygen 2 L no new complaints. Hospitalist Physical - Physical exam Narrative exam: Not in cardiopulmonary distress. Otherwise on oxygen 2 L The patient appeared well nourished and normally developed. Vital signs as documented. Head exam is unremarkable. No scleral icterus . Neck is without jugular venous distension, thyromegaly, or carotid bruits. Lungs are clear to auscultation. Cardiac exam reveals regular rate and Rhythm. Abdominal exam reveals normal bowel sounds, nontender, no organomegaly. Extremities are nonedematous and both femoral and pedal pulses are normal. 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 No focal weakness. - Constitutional Vitals: Temp Pulse Resp BP Pulse Ox 98.5 F 80 20 142/88 97 06/03/20 06:02 06/03/20 06:02 06/03/20 06:02 06/03/20 06:02 06/03/20 06:02 General appearance: Present: no acute distress, well-nourished HEART Score - HEART Score Troponin: Troponin T 0.015 ng/mL (0.00-0.029) 05/24/20 20:03 Results - Labs CBC & Chem 7: 05/27/20 06:14 05/27/20 06:14 Labs: Laboratory Last Values WBC 9.7 K/mm3 (4.5-11.0) 05/27/20 06:14 RBC 4.77 M/mm3 (3.65-5.03) 05/27/20 06:14 Hgb 13.2 gm/dl (11.8-15.2) 05/27/20 06:14 Hct 41.2 % (35.5-45.6) D 05/27/20 06:14 MCV 86 fl (84-94) 05/27/20 06:14 MCH 28 pg (28-32) 05/27/20 06:14 MCHC 32 % (32-34) 05/27/20 06:14 RDW 14.9 % (13.2-15.2) 05/27/20 06:14 Plt Count 200 K/mm3 (140-440) 05/27/20 06:14 Jenkins % (Auto) Aircraft Engine Mechanic 05/27/20 06:14 Eos % (Auto) Aircraft Engine Mechanic 05/24/20 20:03 Add Manual Diff Complete 05/27/20 06:14 Total Counted 100 05/27/20 06:14 Seg Neuts % (Manual) 58.0 % (40.0-70.0) 05/27/20 06:14 Lymphocytes % (Manual) 29.0 % (13.4-35.0) 05/27/20 06:14 Reactive Lymphs % (Man) 1.0 % 05/25/20 07:23 Monocytes % (Manual) 12.0 % (0.0-7.3) H 05/27/20 06:14 Eosinophils % (Manual) 17.0 % (0.0-4.3) H 05/25/20 07:23 Basophils % (Manual) 1.0 % (0.0-1.8) 05/27/20 06:14 Nucleated RBC % Not Reportable 05/27/20 06:14 Seg Neutrophils # Man 5.6 K/mm3 (1.8-7.7) 05/27/20 06:14 Band Neutrophils # 0.0 K/mm3 05/27/20 06:14 Lymphocytes # (Manual) 2.8 K/mm3 (1.2-5.4) 05/27/20 06:14 Abs React Lymphs (Man) 0.0 K/mm3 05/27/20 06:14 Monocytes # (Manual) 1.2 K/mm3 (0.0-0.8) H 05/27/20 06:14 Eosinophils # (Manual) 0.0 K/mm3 (0.0-0.4) 05/27/20 06:14 Basophils # (Manual) 0.1 K/mm3 (0.0-0.1) 05/27/20 06:14 Metamyelocytes # 0.0 K/mm3 05/27/20 06:14 Myelocytes # 0.0 K/mm3 05/27/20 06:14 Promyelocytes # 0.0 K/mm3 05/27/20 06:14 Blast Cells # 0.0 K/mm3 05/27/20 06:14 WBC Morphology Not Reportable 05/27/20 06:14 Hypersegmented Neuts Not Reportable 05/27/20 06:14 Hyposegmented Neuts Not Reportable 05/27/20 06:14 Hypogranular Neuts Not Reportable 05/27/20 06:14 Smudge Cells Not Reportable 05/27/20 06:14 Toxic Granulation Not Reportable 05/27/20 06:14 Toxic Vacuolation Not Reportable 05/27/20 06:14 Dohle Bodies Not Reportable 05/27/20 06:14 Pelger-Huet Anomaly Not Reportable 05/27/20 06:14 Fercho Rods Not Reportable 05/27/20 06:14 Platelet Estimate Consistent w auto 05/27/20 06:14 Clumped Platelets Not Reportable 05/27/20 06:14 Plt Clumps, EDTA Not Reportable 05/27/20 06:14 Large Platelets Not Reportable 05/27/20 06:14 Giant Platelets Not Reportable 05/27/20 06:14 Platelet Satelliting Not Reportable 05/27/20 06:14 Plt Morphology Comment Not Reportable 05/27/20 06:14 RBC Morphology Normal 05/27/20 06:14 Dimorphic RBCs Not Reportable 05/27/20 06:14 Polychromasia Not Reportable 05/27/20 06:14 Hypochromasia Not Reportable 05/27/20 06:14 Poikilocytosis Not Reportable 05/27/20 06:14 Anisocytosis Not Reportable 05/27/20 06:14 Microcytosis Not Reportable 05/27/20 06:14 Macrocytosis Not Reportable 05/27/20 06:14 Spherocytes Not Reportable 05/27/20 06:14 Pappenheimer Bodies Not Reportable 05/27/20 06:14 Sickle Cells Not Reportable 05/27/20 06:14 Target Cells Not Reportable 05/27/20 06:14 Tear Drop Cells Not Reportable 05/27/20 06:14 Ovalocytes Not Reportable 05/27/20 06:14 Helmet Cells Not Reportable 05/27/20 06:14 [place] Bodies Not Reportable 05/27/20 06:14 [place] Rings Not Reportable 05/27/20 06:14 Jenkins Cells Not Reportable 05/27/20 06:14 Bite Cells Not Reportable 05/27/20 06:14 Crenated Cell Not Reportable 05/27/20 06:14 Elliptocytes Not Reportable 05/27/20 06:14 Acanthocytes (Spur) Not Reportable 05/27/20 06:14 Rouleaux Not Reportable 05/27/20 06:14 Hemoglobin C Crystals Not Reportable 05/27/20 06:14 Schistocytes Not Reportable 05/27/20 06:14 Malaria parasites Not Reportable 05/27/20 06:14 Johnson Bodies Not Reportable 05/27/20 06:14 Hem Pathologist Commnt No 05/27/20 06:14 PT 13.0 Sec. (12.2-14.9) 05/25/20 07:23 INR 1.00 (0.87-1.13) 05/25/20 07:23 APTT 28.7 Sec. (24.2-36.6) 05/24/20 20:03 Thrombin Time 16.9 Sec. (15.1-19.6) 05/24/20 20:03 Sodium 136 mmol/L (137-145) L 05/27/20 06:14 Potassium 4.5 mmol/L (3.6-5.0) 05/27/20 06:14 Chloride 98.9 mmol/L (98-107) 05/27/20 06:14 Carbon Dioxide 27 mmol/L (22-30) 05/27/20 06:14 Anion Gap 15 mmol/L 05/27/20 06:14 BUN 27 mg/dL (9-20) H 05/27/20 06:14 Creatinine 1.3 mg/dL (0.8-1.3) 05/27/20 06:14 Estimated GFR > 60 ml/min 05/27/20 06:14 BUN/Creatinine Ratio 21 % 05/27/20 06:14 Glucose 189 mg/dL (75-100) H 05/27/20 06:14 POC Glucose 170 mg/dL (70-105) H 06/03/20 08:40 Hemoglobin A1c 13.0 % (4-6) H 05/27/20 06:14 Calcium 9.8 mg/dL (8.4-10.2) 05/27/20 06:14 Total Creatine Kinase 124 units/L (55-170) 05/24/20 20:03 CK-MB (CK-2) 2.9 ng/mL (0.0-4.0) 05/24/20 20:03 CK-MB (CK-2) Rel Index 2.3 (0-4) 05/24/20 20:03 Troponin T 0.015 ng/mL (0.00-0.029) 05/24/20 20:03 Triglycerides 29 mg/dL (2-149) 05/25/20 07:23 Cholesterol 106 mg/dL (50-199) 05/25/20 07:23 LDL Cholesterol Direct 35 mg/dL (50-130) L 05/25/20 07:23 HDL Cholesterol 72 mg/dL (40-59) H 05/25/20 07:23 Cholesterol/HDL Ratio 1.47 % 05/25/20 07:23 Urine Color Straw (Yellow) 05/24/20 Unknown Urine Turbidity Clear (Clear) 05/24/20 Unknown Urine pH 7.0 (5.0-7.0) 05/24/20 Unknown Ur Specific [place] 1.009 (1.003-1.030) 05/24/20 Unknown Urine Protein 30 mg/dl mg/dL (Negative) 05/24/20 Unknown Urine Glucose (UA) 150 mg/dL (Negative) 05/24/20 Unknown Urine Ketones Neg mg/dL (Negative) 05/24/20 Unknown Urine Blood Neg (Negative) 05/24/20 Unknown Urine Nitrite Neg (Negative) 05/24/20 Unknown Urine Bilirubin Neg (Negative) 05/24/20 Unknown Urine Urobilinogen < 2.0 mg/dL (<2.0) 05/24/20 Unknown Ur Leukocyte Esterase Neg (Negative) 05/24/20 Unknown Urine WBC (Auto) 1.0 /HPF (0.0-6.0) 05/24/20 Unknown Urine RBC (Auto) 2.0 /HPF (0.0-6.0) 05/24/20 Unknown U Epithel Cells (Auto) < 1.0 /HPF (0-13.0) 05/24/20 Unknown Urine Bacteria (Auto) 1+ /HPF (Negative) 05/24/20 Unknown Urine Mucus Few /HPF 05/24/20 Unknown Coronavirus (PCR) Positive (Negative) A 05/25/20 Unknown Juarez/IV: Voiding Method Condom Catheter Active Medications - Current Medications Current Medications: Generic Name Dose Route Start Last Admin Trade Name Freq PRN Reason Stop Dose Admin Acetaminophen 650 mg 05/24/20 22:27 05/31/20 13:44 Acetaminophen 325 Mg Tab PO 650 mg Q4H PRN Administration Pain, Mild (1-3) Aspirin 325 mg 05/25/20 10:00 06/03/20 09:04 Aspirin 325 Mg Tab PO 325 mg QDAY FARZAD Administration Atorvastatin Calcium 40 mg 05/25/20 22:00 06/02/20 21:53 Atorvastatin 40 Mg Tab PO 40 mg QHS [facility] Administration Baclofen 10 mg 05/28/20 20:00 06/03/20 09:03 Baclofen 10 Mg Tab PO 10 mg TID FARZAD Administration Bisacodyl 10 mg 05/24/20 22:27 Bisacodyl 10 Mg Rect Supp MS QDAY PRN Constipation Chlorpromazine HCl 75 mg 06/02/20 01:38 Chlorpromazine 25 Mg Tab PO BID PRN Hiccups Clopidogrel Bisulfate 75 mg 05/29/20 10:00 06/03/20 09:04 Clopidogrel 75 Mg Tab PO 75 mg QDAY FARZAD Administration Dexamethasone 6 mg 05/28/20 10:00 06/03/20 09:03 Dexamethasone 4 Mg Tab PO 06/03/20 12:00 6 mg DAILY FARZAD Administration Dextrose 0 ml 05/24/20 22:27 05/30/20 21:36 Dextrose 50% In Water (25gm) 50 Ml Syringe IV 15 ml Q30MIN PRN Administration Hypoglycemia Protocol Enoxaparin Sodium 40 mg 05/25/20 22:00 06/02/20 21:53 Enoxaparin 40 Mg/0.4 Ml Inj SUB-Q 40 mg QDAY@2200 [facility] Administration Protocol Insulin Glargine 20 units 05/28/20 22:00 06/02/20 22:06 Insulin Glargine 100 Units/Ml SUB-Q Not Given QHS [facility] Insulin Human Lispro 0 unit 05/29/20 11:30 06/03/20 09:03 Insulin Lispro 100 Unit/Ml SUB-Q 2 unit ACHS [facility] Administration Protocol Insulin Human Lispro 12 unit 06/01/20 08:26 06/03/20 09:03 Insulin Lispro 100 Unit/Ml SUB-Q 12 unit AC [facility] Administration Magnesium Hydroxide 30 ml 05/24/20 22:27 Magnesium Hydroxide (Mom) Oral Liqd Udc PO Q4H PRN Constipation Metoclopramide HCl 10 mg 05/24/20 22:27 05/26/20 23:22 Metoclopramide 10 Mg Tab PO 10 mg Q6H PRN Administration Nausea And Vomiting Morphine Sulfate 2 mg 05/24/20 22:27 Morphine 2 Mg/1 Ml Inj IV Q4H PRN Pain, Moderate (4-6) Ondansetron HCl 4 mg 05/24/20 22:27 Ondansetron 4 Mg/2 Ml Inj IV Q8H PRN Nausea And Vomiting Pantoprazole Sodium 40 mg 05/28/20 16:30 06/03/20 09:04 Pantoprazole 40 Mg Tab PO 40 mg BIDAC FARZAD Administration Promethazine HCl 25 mg 05/24/20 22:27 Promethazine 25 Mg Rect Supp MS Q6H PRN Nausea And Vomiting Sodium Chloride 10 ml 05/25/20 10:00 06/03/20 09:04 Sodium Chloride 0.9% 10 Ml Flush Syringe IV 10 ml BID FARZAD Administration Sodium Chloride 10 ml 05/24/20 22:27 Sodium Chloride 0.9% 10 Ml Flush Syringe IV PRN PRN LINE FLUSH Nutrition/Malnutrition Assess - Dietary Evaluation Nutrition/Malnutrition Findings: Nutrition Notes Start: 05/25/20 11:32 Freq: Status: Active Protocol: Document 05/29/20 09:20 (Rec: 05/29/20 09:27 [id number]) Nutrition Notes Need for Assessment generated from: Education Initial or Follow up Brief Note Current Diagnosis Diabetes,Hypertension Other Pertinent Diagnosis COVID(+) Current Diet pureed, consistent CHO Subjective/Other Information MD order for diet education. Pt states he eats mostly fish and rice at home. Pt given portion size information. Encouraged pt to take medications. #1 Nutrition Diagnosis Limited adherence to nutrition -related recommendations Etiology unknown As Evidenced by Signs and Symptoms pt understands DM diet and A1c 13% Nutrition Intervention Teaching Recipient Patient Learning Readiness Good Teaching Methods Discussion,Handout Education Handouts Provided Planning Healthy Meals Barriers to Learning No Barriers RD phone number provided Yes Patient aware of follow up options Yes Revisit per MD consult or patient Sign Off request:
[2020-06-03] MEDS: ENOXAPARIN 40 MG/0.4 ML INJ SUB-Q SCH (21:45)
[2020-06-03] MEDS: INSULIN GLARGINE 100 UNITS/ML SUB-Q SCH (21:57)
[2020-06-04] MEDS: BACLOFEN 10 MG TAB PO SCH ×3 (09:25→22:21)
[2020-06-04] MEDS: CLOPIDOGREL 75 MG TAB PO SCH (09:25)
[2020-06-04] MEDS: PANTOPRAZOLE 40 MG TAB PO SCH ×2 (09:25→18:40)
[2020-06-04] MEDS: ASPIRIN 325 MG TAB PO SCH (09:25)
[2020-06-04] MEDS: INSULIN LISPRO 100 UNIT/ML SUB-Q SCH ×7 (09:27→22:19)
--- NOTE | 2020-06-04 12:22 | Progress Note ---
Assessment and Plan Assessment and plan: Acute CVA. Hypertension DM type 2 COVID PNA 05/25. F/U MRI brain and carotid US. Cont. ASA and Lipitor. PT eval. follow-up Covid testing. Start dexamethasone empirically until Covid testing resulted. 05/26. Carotid ultrasound negative. Await MRI brain. Neurology consultation pending. Covid PCR testing on 05/25 is positive. 05/27/2020; CT head, carotid Doppler, echo unremarkable. MRI and EEG evaluation is pending. Patient is positive for Covid does not have any symptoms. She was evaluated by ID and no treatment is needed. Was evaluated by physical therapy recommend acute rehab. Disposition; acute rehab after neurology evaluation and MRI completed. 05/28; MRI was done; 1.5 x 0.7 cm subacute ischemic infarct in the right gangliocapsular region. Chronic focal infarcts in the right thalamus, genu of the right internal capsule, body of the left corpus callosum and left marc. No need for Covid treatment. Neurology evaluation is pending. PT evaluated and recommend subacute rehab. Blood sugar is uncontrolled, I added Lantus in addition to sliding scale insulin. Will check A1c. Neurology evaluated and recommend aspirin, and Plavix for 21 days. 05/29/20; patient was evaluated by neurology and recommend to continue current management. Patient was seen by ID and she is on dexamethasone. Hemoglobin A1c is 13.1. Continue with aspirin and Plavix. Evaluated by PT OT and recommended subacute stroke. 05/30/2020; acute CVA. Continue with aspirin and Plavix. Patient is pending acute rehab. Likely to be transferred to acute rehab on Tuesday. Discussed with case management. Will monitor his blood sugar level and adjust insulin as needed. 05/31/2020; will discharge to rehab on Tuesday. Patient agreed with the plan of care. Discussed with case management. Blood sugar is better controlled. Patient's hemoglobin A1c is 13 need insulin at discharge. 06/01/2020; patient will be discharged tomorrow to acute rehab. Discussed with case management. Patient need insulin adjustment at discharge. A1c is 13. 06/02: Findings on A1c of 13 discussed with the patient will need insulin on discharge. Extensive discussion with the patient and case management awaiting placement. We will also adjust insulin as blood sugar still elevated may need a repeat Covid test. Continue daily reevaluation of oxygen need 06/03: Continue supportive care, wean oxygen as tolerated. awaiting placement, continue Rehab in house. 06/04: Continue supportive care nursing staff aware of dietary recommendation. Also requesting at this time physical therapy daily evaluation until rehab faci lity is placed. Patient will need constant redirection. He does appear to be oriented x3 and simple questions but on deeper questions show some episodes of delirium. History Interval history: Patient seen and examined remains on oxygen 2 L no new complaints. Dietary recommendation per speech therapy noted. Hospitalist Physical - Physical exam Narrative exam: Not in cardiopulmonary distress. Otherwise on oxygen 2 L still some intermittent confusion The patient appeared well nourished and normally developed. Vital signs as documented. Head exam is unremarkable. No scleral icterus . Neck is without jugular venous distension, thyromegaly, or carotid bruits. Lungs are clear to auscultation. Cardiac exam reveals regular rate and Rhythm. Abdominal exam reveals normal bowel sounds, nontender, no organomegaly. Extremities are nonedematous and both femoral and pedal pulses are normal. 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 No focal weakness. - Constitutional Vitals: Temp Pulse Resp BP Pulse Ox 98.7 F 76 18 147/86 93 06/04/20 05:08 06/04/20 05:08 06/04/20 05:08 06/04/20 05:08 06/04/20 05:08 General appearance: Present: no acute distress, well-nourished HEART Score - HEART Score Troponin: Troponin T 0.015 ng/mL (0.00-0.029) 05/24/20 20:03 Results - Labs CBC & Chem 7: 05/27/20 06:14 05/27/20 06:14 Labs: Laboratory Last Values WBC 9.7 K/mm3 (4.5-11.0) 05/27/20 06:14 RBC 4.77 M/mm3 (3.65-5.03) 05/27/20 06:14 Hgb 13.2 gm/dl (11.8-15.2) 05/27/20 06:14 Hct 41.2 % (35.5-45.6) D 05/27/20 06:14 MCV 86 fl (84-94) 05/27/20 06:14 MCH 28 pg (28-32) 05/27/20 06:14 MCHC 32 % (32-34) 05/27/20 06:14 RDW 14.9 % (13.2-15.2) 05/27/20 06:14 Plt Count 200 K/mm3 (140-440) 05/27/20 06:14 Stearns % (Auto) Audio Visual Director 05/27/20 06:14 Eos % (Auto) Audio Visual Director 05/24/20 20:03 Add Manual Diff Complete 05/27/20 06:14 Total Counted 100 05/27/20 06:14 Seg Neuts % (Manual) 58.0 % (40.0-70.0) 05/27/20 06:14 Lymphocytes % (Manual) 29.0 % (13.4-35.0) 05/27/20 06:14 Reactive Lymphs % (Man) 1.0 % 05/25/20 07:23 Monocytes % (Manual) 12.0 % (0.0-7.3) H 05/27/20 06:14 Eosinophils % (Manual) 17.0 % (0.0-4.3) H 05/25/20 07:23 Basophils % (Manual) 1.0 % (0.0-1.8) 05/27/20 06:14 Nucleated RBC % Not Reportable 05/27/20 06:14 Seg Neutrophils # Man 5.6 K/mm3 (1.8-7.7) 05/27/20 06:14 Band Neutrophils # 0.0 K/mm3 05/27/20 06:14 Lymphocytes # (Manual) 2.8 K/mm3 (1.2-5.4) 05/27/20 06:14 Abs React Lymphs (Man) 0.0 K/mm3 05/27/20 06:14 Monocytes # (Manual) 1.2 K/mm3 (0.0-0.8) H 05/27/20 06:14 Eosinophils # (Manual) 0.0 K/mm3 (0.0-0.4) 05/27/20 06:14 Basophils # (Manual) 0.1 K/mm3 (0.0-0.1) 05/27/20 06:14 Metamyelocytes # 0.0 K/mm3 05/27/20 06:14 Myelocytes # 0.0 K/mm3 05/27/20 06:14 Promyelocytes # 0.0 K/mm3 05/27/20 06:14 Blast Cells # 0.0 K/mm3 05/27/20 06:14 WBC Morphology Not Reportable 05/27/20 06:14 Hypersegmented Neuts Not Reportable 05/27/20 06:14 Hyposegmented Neuts Not Reportable 05/27/20 06:14 Hypogranular Neuts Not Reportable 05/27/20 06:14 Smudge Cells Not Reportable 05/27/20 06:14 Toxic Granulation Not Reportable 05/27/20 06:14 Toxic Vacuolation Not Reportable 05/27/20 06:14 Dohle Bodies Not Reportable 05/27/20 06:14 Pelger-Huet Anomaly Not Reportable 05/27/20 06:14 Fercho Rods Not Reportable 05/27/20 06:14 Platelet Estimate Consistent w auto 05/27/20 06:14 Clumped Platelets Not Reportable 05/27/20 06:14 Plt Clumps, EDTA Not Reportable 05/27/20 06:14 Large Platelets Not Reportable 05/27/20 06:14 Giant Platelets Not Reportable 05/27/20 06:14 Platelet Satelliting Not Reportable 05/27/20 06:14 Plt Morphology Comment Not Reportable 05/27/20 06:14 RBC Morphology Normal 05/27/20 06:14 Dimorphic RBCs Not Reportable 05/27/20 06:14 Polychromasia Not Reportable 05/27/20 06:14 Hypochromasia Not Reportable 05/27/20 06:14 Poikilocytosis Not Reportable 05/27/20 06:14 Anisocytosis Not Reportable 05/27/20 06:14 Microcytosis Not Reportable 05/27/20 06:14 Macrocytosis Not Reportable 05/27/20 06:14 Spherocytes Not Reportable 05/27/20 06:14 Pappenheimer Bodies Not Reportable 05/27/20 06:14 Sickle Cells Not Reportable 05/27/20 06:14 Target Cells Not Reportable 05/27/20 06:14 Tear Drop Cells Not Reportable 05/27/20 06:14 Ovalocytes Not Reportable 05/27/20 06:14 Helmet Cells Not Reportable 05/27/20 06:14 [place] Bodies Not Reportable 05/27/20 06:14 [place] Rings Not Reportable 05/27/20 06:14 [place] Cells Not Reportable 05/27/20 06:14 Bite Cells Not Reportable 05/27/20 06:14 Crenated Cell Not Reportable 05/27/20 06:14 Elliptocytes Not Reportable 05/27/20 06:14 Acanthocytes (Spur) Not Reportable 05/27/20 06:14 Rouleaux Not Reportable 05/27/20 06:14 Hemoglobin C Crystals Not Reportable 05/27/20 06:14 Schistocytes Not Reportable 05/27/20 06:14 Malaria parasites Not Reportable 05/27/20 06:14 Johnson Bodies Not Reportable 05/27/20 06:14 Hem Pathologist Commnt No 05/27/20 06:14 PT 13.0 Sec. (12.2-14.9) 05/25/20 07:23 INR 1.00 (0.87-1.13) 05/25/20 07:23 APTT 28.7 Sec. (24.2-36.6) 05/24/20 20:03 Thrombin Time 16.9 Sec. (15.1-19.6) 05/24/20 20:03 Sodium 136 mmol/L (137-145) L 05/27/20 06:14 Potassium 4.5 mmol/L (3.6-5.0) 05/27/20 06:14 Chloride 98.9 mmol/L (98-107) 05/27/20 06:14 Carbon Dioxide 27 mmol/L (22-30) 05/27/20 06:14 Anion Gap 15 mmol/L 05/27/20 06:14 BUN 27 mg/dL (9-20) H 05/27/20 06:14 Creatinine 1.3 mg/dL (0.8-1.3) 05/27/20 06:14 Estimated GFR > 60 ml/min 05/27/20 06:14 BUN/Creatinine Ratio 21 % 05/27/20 06:14 Glucose 189 mg/dL (75-100) H 05/27/20 06:14 POC Glucose 195 mg/dL (70-105) H 06/04/20 08:41 Hemoglobin A1c 13.0 % (4-6) H 05/27/20 06:14 Calcium 9.8 mg/dL (8.4-10.2) 05/27/20 06:14 Total Creatine Kinase 124 units/L (55-170) 05/24/20 20:03 CK-MB (CK-2) 2.9 ng/mL (0.0-4.0) 05/24/20 20:03 CK-MB (CK-2) Rel Index 2.3 (0-4) 05/24/20 20:03 Troponin T 0.015 ng/mL (0.00-0.029) 05/24/20 20:03 Triglycerides 29 mg/dL (2-149) 05/25/20 07:23 Cholesterol 106 mg/dL (50-199) 05/25/20 07:23 LDL Cholesterol Direct 35 mg/dL (50-130) L 05/25/20 07:23 HDL Cholesterol 72 mg/dL (40-59) H 05/25/20 07:23 Cholesterol/HDL Ratio 1.47 % 05/25/20 07:23 Urine Color Straw (Yellow) 05/24/20 Unknown Urine Turbidity Clear (Clear) 05/24/20 Unknown Urine pH 7.0 (5.0-7.0) 05/24/20 Unknown Ur Specific [place] 1.009 (1.003-1.030) 05/24/20 Unknown Urine Protein 30 mg/dl mg/dL (Negative) 05/24/20 Unknown Urine Glucose (UA) 150 mg/dL (Negative) 05/24/20 Unknown Urine Ketones Neg mg/dL (Negative) 05/24/20 Unknown Urine Blood Neg (Negative) 05/24/20 Unknown Urine Nitrite Neg (Negative) 05/24/20 Unknown Urine Bilirubin Neg (Negative) 05/24/20 Unknown Urine Urobilinogen < 2.0 mg/dL (<2.0) 05/24/20 Unknown Ur Leukocyte Esterase Neg (Negative) 05/24/20 Unknown Urine WBC (Auto) 1.0 /HPF (0.0-6.0) 05/24/20 Unknown Urine RBC (Auto) 2.0 /HPF (0.0-6.0) 05/24/20 Unknown U Epithel Cells (Auto) < 1.0 /HPF (0-13.0) 05/24/20 Unknown Urine Bacteria (Auto) 1+ /HPF (Negative) 05/24/20 Unknown Urine Mucus Few /HPF 05/24/20 Unknown Coronavirus (PCR) Positive (Negative) A 05/25/20 Unknown [place]arez/IV: Voiding Method Condom Catheter Active Medications - Current Medications Current Medications: Generic Name Dose Route Start Last Admin Trade Name Freq PRN Reason Stop Dose Admin Acetaminophen 650 mg 05/24/20 22:27 05/31/20 13:44 Acetaminophen 325 Mg Tab PO 650 mg Q4H PRN Administration Pain, Mild (1-3) Aspirin 325 mg 05/25/20 10:00 06/04/20 09:25 Aspirin 325 Mg Tab PO 325 mg QDAY FARZAD Administration Atorvastatin Calcium 40 mg 05/25/20 22:00 06/03/20 21:45 Atorvastatin 40 Mg Tab PO 40 mg QHS FARZAD Administration Baclofen 10 mg 05/28/20 20:00 06/04/20 09:25 Baclofen 10 Mg Tab PO 10 mg TID FARZAD Administration Bisacodyl 10 mg 05/24/20 22:27 Bisacodyl 10 Mg Rect Supp PA QDAY PRN Constipation Chlorpromazine HCl 75 mg 06/02/20 01:38 Chlorpromazine 25 Mg Tab PO BID PRN Hiccups Clopidogrel Bisulfate 75 mg 05/29/20 10:00 06/04/20 09:25 Clopidogrel 75 Mg Tab PO 75 mg QDAY FARZAD Administration Dextrose 0 ml 05/24/20 22:27 05/30/20 21:36 Dextrose 50% In Water (25gm) 50 Ml Syringe IV 15 ml Q30MIN PRN Administration Hypoglycemia Protocol Enoxaparin Sodium 40 mg 05/25/20 22:00 06/03/20 21:45 Enoxaparin 40 Mg/0.4 Ml Inj SUB-Q 40 mg QDAY@2200 FARZAD Administration Protocol Insulin Glargine 20 units 05/28/20 22:00 06/03/20 21:57 Insulin Glargine 100 Units/Ml SUB-Q 20 units QHS FARZAD Administration Insulin Human Lispro 0 unit 05/29/20 11:30 06/04/20 09:27 Insulin Lispro 100 Unit/Ml SUB-Q 2 unit ACHS FARZAD Administration Protocol Insulin Human Lispro 12 unit 06/01/20 08:26 06/04/20 09:27 Insulin Lispro 100 Unit/Ml SUB-Q 12 unit AC FARZAD Administration Magnesium Hydroxide 30 ml 05/24/20 22:27 Magnesium Hydroxide (Mom) Oral Liqd Udc PO Q4H PRN Constipation Metoclopramide HCl 10 mg 05/24/20 22:27 05/26/20 23:22 Metoclopramide 10 Mg Tab PO 10 mg Q6H PRN Administration Nausea And Vomiting Morphine Sulfate 2 mg 05/24/20 22:27 Morphine 2 Mg/1 Ml Inj IV Q4H PRN Pain, Moderate (4-6) Ondansetron HCl 4 mg 05/24/20 22:27 Ondansetron 4 Mg/2 Ml Inj IV Q8H PRN Nausea And Vomiting Pantoprazole Sodium 40 mg 05/28/20 16:30 06/04/20 09:25 Pantoprazole 40 Mg Tab PO 40 mg BIDAC FARZAD Administration Promethazine HCl 25 mg 05/24/20 22:27 Promethazine 25 Mg Rect Supp PA Q6H PRN Nausea And Vomiting Sodium Chloride 10 ml 05/25/20 10:00 06/04/20 09:28 Sodium Chloride 0.9% 10 Ml Flush Syringe IV 10 ml BID FARZAD Administration Sodium Chloride 10 ml 05/24/20 22:27 Sodium Chloride 0.9% 10 Ml Flush Syringe IV PRN PRN LINE FLUSH Nutrition/Malnutrition Assess - Dietary Evaluation Nutrition/Malnutrition Findings: Nutrition Notes Start: 05/25/20 11:32 Freq: Status: Active Protocol: Document 05/29/20 09:20 (Rec: 05/29/20 09:27 [id number]) Nutrition Notes Need for Assessment generated from: Education Initial or Follow up Brief Note Current Diagnosis Diabetes,Hypertension Other Pertinent Diagnosis COVID(+) Current Diet pureed, consistent CHO Subjective/Other Information MD order for diet education. Pt states he eats mostly fish and rice at home. Pt given portion size information. Encouraged pt to take medications. #1 Nutrition Diagnosis Limited adherence to nutrition -related recommendations Etiology unknown As Evidenced by Signs and Symptoms pt understands DM diet and A1c 13% Nutrition Intervention Teaching Recipient Patient Learning Readiness Good Teaching Methods Discussion,Handout Education Handouts Provided Planning Healthy Meals Barriers to Learning No Barriers RD phone number provided Yes Patient aware of follow up options Yes Revisit per MD consult or patient Sign Off request:
[2020-06-04] MEDS: ENOXAPARIN 40 MG/0.4 ML INJ SUB-Q SCH (22:21)
[2020-06-04] MEDS: INSULIN GLARGINE 100 UNITS/ML SUB-Q SCH (22:55)
[2020-06-05] MEDS: BACLOFEN 10 MG TAB PO SCH ×3 (09:30→21:46)
[2020-06-05] MEDS: PANTOPRAZOLE 40 MG TAB PO SCH ×2 (09:30→17:57)
[2020-06-05] MEDS: INSULIN LISPRO 100 UNIT/ML SUB-Q SCH ×7 (09:30→23:39)
[2020-06-05] MEDS: ASPIRIN 325 MG TAB PO SCH (10:46)
[2020-06-05] MEDS: CLOPIDOGREL 75 MG TAB PO SCH (10:49)
--- NOTE | 2020-06-05 13:01 | Progress Note ---
Assessment and Plan Assessment and plan: Acute CVA. Hypertension DM type 2 COVID PNA 05/25. F/U MRI brain and carotid US. Cont. ASA and Lipitor. PT eval. follow-up Covid testing. Start dexamethasone empirically until Covid testing resulted. 05/26. Carotid ultrasound negative. Await MRI brain. Neurology consultation pending. Covid PCR testing on 05/25 is positive. 05/27/2020; CT head, carotid Doppler, echo unremarkable. MRI and EEG evaluation is pending. Patient is positive for Covid does not have any symptoms. She was evaluated by ID and no treatment is needed. Was evaluated by physical therapy recommend acute rehab. Disposition; acute rehab after neurology evaluation and MRI completed. 05/28; MRI was done; 1.5 x 0.7 cm subacute ischemic infarct in the right gangliocapsular region. Chronic focal infarcts in the right thalamus, genu of the right internal capsule, body of the left corpus callosum and left marc. No need for Covid treatment. Neurology evaluation is pending. PT evaluated and recommend subacute rehab. Blood sugar is uncontrolled, I added Lantus in addition to sliding scale insulin. Will check A1c. Neurology evaluated and recommend aspirin, and Plavix for 21 days. 05/29/20; patient was evaluated by neurology and recommend to continue current management. Patient was seen by ID and she is on dexamethasone. Hemoglobin A1c is 13.1. Continue with aspirin and Plavix. Evaluated by PT OT and recommended subacute stroke. 05/30/2020; acute CVA. Continue with aspirin and Plavix. Patient is pending acute rehab. Likely to be transferred to acute rehab on Tuesday. Discussed with case management. Will monitor his blood sugar level and adjust insulin as needed. 05/31/2020; will discharge to rehab on Tuesday. Patient agreed with the plan of care. Discussed with case management. Blood sugar is better controlled. Patient's hemoglobin A1c is 13 need insulin at discharge. 06/01/2020; patient will be discharged tomorrow to acute rehab. Discussed with case management. Patient need insulin adjustment at discharge. A1c is 13. 06/02: Findings on A1c of 13 discussed with the patient will need insulin on discharge. Extensive discussion with the patient and case management awaiting placement. We will also adjust insulin as blood sugar still elevated may need a repeat Covid test. Continue daily reevaluation of oxygen need 06/03: Continue supportive care, wean oxygen as tolerated. awaiting placement, continue Rehab in house. 06/04: Continue supportive care nursing staff aware of dietary recommendation. Also requesting at this time physical therapy daily evaluation until rehab faci lity is placed. Patient will need constant redirection. He does appear to be oriented x3 and simple questions but on deeper questions show some episodes of delirium. 06/05: Patient remains clinically stable still on 2 L of oxygen have requested a home O2 evaluation as there is plan for possible discharge home with home health and palliative care. Patient will continue to need physical therapy r ehabilitation.. Dissipate that he is severely deconditioned at this time. Once arrangement is made patient can be discharged. He has a condom catheter which can be discontinued at the time. History Interval history: Patient seen and examined remains on oxygen 2 L no new complaints. Hospitalist Physical - Physical exam Narrative exam: Not in cardiopulmonary distress. Otherwise on oxygen 2 L still some intermittent confusion The patient appeared well nourished and normally developed. Vital signs as documented. Head exam is unremarkable. No scleral icterus . Neck is without jugular venous distension, thyromegaly, or carotid bruits. Lungs are clear to auscultation. Cardiac exam reveals regular rate and Rhythm. Abdominal exam reveals normal bowel sounds, nontender, no organomegaly. Extremities are nonedematous and both femoral and pedal pulses are normal. 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 No focal weakness. - Constitutional Vitals: Temp Pulse Resp BP Pulse Ox 98.0 F 104 H 18 150/79 95 06/05/20 04:30 06/05/20 04:30 06/05/20 04:30 06/05/20 04:30 06/05/20 08:26 General appearance: Present: no acute distress, well-nourished HEART Score - HEART Score Troponin: Troponin T 0.015 ng/mL (0.00-0.029) 05/24/20 20:03 Results - Labs CBC & Chem 7: 05/27/20 06:14 05/27/20 06:14 Labs: Laboratory Last Values WBC 9.7 K/mm3 (4.5-11.0) 05/27/20 06:14 RBC 4.77 M/mm3 (3.65-5.03) 05/27/20 06:14 Hgb 13.2 gm/dl (11.8-15.2) 05/27/20 06:14 Hct 41.2 % (35.5-45.6) D 05/27/20 06:14 MCV 86 fl (84-94) 05/27/20 06:14 MCH 28 pg (28-32) 05/27/20 06:14 MCHC 32 % (32-34) 05/27/20 06:14 RDW 14.9 % (13.2-15.2) 05/27/20 06:14 Plt Count 200 K/mm3 (140-440) 05/27/20 06:14 Dunn % (Auto) Geriatric Assistant 05/27/20 06:14 Eos % (Auto) Geriatric Assistant 05/24/20 20:03 Add Manual Diff Complete 05/27/20 06:14 Total Counted 100 05/27/20 06:14 Seg Neuts % (Manual) 58.0 % (40.0-70.0) 05/27/20 06:14 Lymphocytes % (Manual) 29.0 % (13.4-35.0) 05/27/20 06:14 Reactive Lymphs % (Man) 1.0 % 05/25/20 07:23 Monocytes % (Manual) 12.0 % (0.0-7.3) H 05/27/20 06:14 Eosinophils % (Manual) 17.0 % (0.0-4.3) H 05/25/20 07:23 Basophils % (Manual) 1.0 % (0.0-1.8) 05/27/20 06:14 Nucleated RBC % Not Reportable 05/27/20 06:14 Seg Neutrophils # Man 5.6 K/mm3 (1.8-7.7) 05/27/20 06:14 Band Neutrophils # 0.0 K/mm3 05/27/20 06:14 Lymphocytes # (Manual) 2.8 K/mm3 (1.2-5.4) 05/27/20 06:14 Abs React Lymphs (Man) 0.0 K/mm3 05/27/20 06:14 Monocytes # (Manual) 1.2 K/mm3 (0.0-0.8) H 05/27/20 06:14 Eosinophils # (Manual) 0.0 K/mm3 (0.0-0.4) 05/27/20 06:14 Basophils # (Manual) 0.1 K/mm3 (0.0-0.1) 05/27/20 06:14 Metamyelocytes # 0.0 K/mm3 05/27/20 06:14 Myelocytes # 0.0 K/mm3 05/27/20 06:14 Promyelocytes # 0.0 K/mm3 05/27/20 06:14 Blast Cells # 0.0 K/mm3 05/27/20 06:14 WBC Morphology Not Reportable 05/27/20 06:14 Hypersegmented Neuts Not Reportable 05/27/20 06:14 Hyposegmented Neuts Not Reportable 05/27/20 06:14 Hypogranular Neuts Not Reportable 05/27/20 06:14 Smudge Cells Not Reportable 05/27/20 06:14 Toxic Granulation Not Reportable 05/27/20 06:14 Toxic Vacuolation Not Reportable 05/27/20 06:14 Dohle Bodies Not Reportable 05/27/20 06:14 Pelger-Huet Anomaly Not Reportable 05/27/20 06:14 Fercho Rods Not Reportable 05/27/20 06:14 Platelet Estimate Consistent w auto 05/27/20 06:14 Clumped Platelets Not Reportable 05/27/20 06:14 Plt Clumps, EDTA Not Reportable 05/27/20 06:14 Large Platelets Not Reportable 05/27/20 06:14 Giant Platelets Not Reportable 05/27/20 06:14 Platelet Satelliting Not Reportable 05/27/20 06:14 Plt Morphology Comment Not Reportable 05/27/20 06:14 RBC Morphology Normal 05/27/20 06:14 Dimorphic RBCs Not Reportable 05/27/20 06:14 Polychromasia Not Reportable 05/27/20 06:14 Hypochromasia Not Reportable 05/27/20 06:14 Poikilocytosis Not Reportable 05/27/20 06:14 Anisocytosis Not Reportable 05/27/20 06:14 Microcytosis Not Reportable 05/27/20 06:14 Macrocytosis Not Reportable 05/27/20 06:14 Spherocytes Not Reportable 05/27/20 06:14 Pappenheimer Bodies Not Reportable 05/27/20 06:14 Sickle Cells Not Reportable 05/27/20 06:14 Target Cells Not Reportable 05/27/20 06:14 Tear Drop Cells Not Reportable 05/27/20 06:14 Ovalocytes Not Reportable 05/27/20 06:14 Helmet Cells Not Reportable 05/27/20 06:14 Brumfield-Ray Bodies Not Reportable 05/27/20 06:14 Veteran Rings Not Reportable 05/27/20 06:14 [place] Cells Not Reportable 05/27/20 06:14 Bite Cells Not Reportable 05/27/20 06:14 Crenated Cell Not Reportable 05/27/20 06:14 Elliptocytes Not Reportable 05/27/20 06:14 Acanthocytes (Spur) Not Reportable 05/27/20 06:14 Rouleaux Not Reportable 05/27/20 06:14 Hemoglobin C Crystals Not Reportable 05/27/20 06:14 Schistocytes Not Reportable 05/27/20 06:14 Malaria parasites Not Reportable 05/27/20 06:14 Johnson Bodies Not Reportable 05/27/20 06:14 Hem Pathologist Commnt No 05/27/20 06:14 PT 13.0 Sec. (12.2-14.9) 05/25/20 07:23 INR 1.00 (0.87-1.13) 05/25/20 07:23 APTT 28.7 Sec. (24.2-36.6) 05/24/20 20:03 Thrombin Time 16.9 Sec. (15.1-19.6) 05/24/20 20:03 Sodium 136 mmol/L (137-145) L 05/27/20 06:14 Potassium 4.5 mmol/L (3.6-5.0) 05/27/20 06:14 Chloride 98.9 mmol/L (98-107) 05/27/20 06:14 Carbon Dioxide 27 mmol/L (22-30) 05/27/20 06:14 Anion Gap 15 mmol/L 05/27/20 06:14 BUN 27 mg/dL (9-20) H 05/27/20 06:14 Creatinine 1.3 mg/dL (0.8-1.3) 05/27/20 06:14 Estimated GFR > 60 ml/min 05/27/20 06:14 BUN/Creatinine Ratio 21 % 05/27/20 06:14 Glucose 189 mg/dL (75-100) H 05/27/20 06:14 POC Glucose 145 mg/dL (70-105) H 06/04/20 20:15 Hemoglobin A1c 13.0 % (4-6) H 05/27/20 06:14 Calcium 9.8 mg/dL (8.4-10.2) 05/27/20 06:14 Total Creatine Kinase 124 units/L (55-170) 05/24/20 20:03 CK-MB (CK-2) 2.9 ng/mL (0.0-4.0) 05/24/20 20:03 CK-MB (CK-2) Rel Index 2.3 (0-4) 05/24/20 20:03 Troponin T 0.015 ng/mL (0.00-0.029) 05/24/20 20:03 Triglycerides 29 mg/dL (2-149) 05/25/20 07:23 Cholesterol 106 mg/dL (50-199) 05/25/20 07:23 LDL Cholesterol Direct 35 mg/dL (50-130) L 05/25/20 07:23 HDL Cholesterol 72 mg/dL (40-59) H 05/25/20 07:23 Cholesterol/HDL Ratio 1.47 % 05/25/20 07:23 Urine Color Straw (Yellow) 05/24/20 Unknown Urine Turbidity Clear (Clear) 05/24/20 Unknown Urine pH 7.0 (5.0-7.0) 05/24/20 Unknown Ur Specific [place] 1.009 (1.003-1.030) 05/24/20 Unknown Urine Protein 30 mg/dl mg/dL (Negative) 05/24/20 Unknown Urine Glucose (UA) 150 mg/dL (Negative) 05/24/20 Unknown Urine Ketones Neg mg/dL (Negative) 05/24/20 Unknown Urine Blood Neg (Negative) 05/24/20 Unknown Urine Nitrite Neg (Negative) 05/24/20 Unknown Urine Bilirubin Neg (Negative) 05/24/20 Unknown Urine Urobilinogen < 2.0 mg/dL (<2.0) 05/24/20 Unknown Ur Leukocyte Esterase Neg (Negative) 05/24/20 Unknown Urine WBC (Auto) 1.0 /HPF (0.0-6.0) 05/24/20 Unknown Urine RBC (Auto) 2.0 /HPF (0.0-6.0) 05/24/20 Unknown U Epithel Cells (Auto) < 1.0 /HPF (0-13.0) 05/24/20 Unknown Urine Bacteria (Auto) 1+ /HPF (Negative) 05/24/20 Unknown Urine Mucus Few /HPF 05/24/20 Unknown Coronavirus (PCR) Positive (Negative) A 05/25/20 Unknown Juarez/IV: Voiding Method Urinal Active Medications - Current Medications Current Medications: Generic Name Dose Route Start Last Admin Trade Name Freq PRN Reason Stop Dose Admin Acetaminophen 650 mg 05/24/20 22:27 05/31/20 13:44 Acetaminophen 325 Mg Tab PO 650 mg Q4H PRN Administration Pain, Mild (1-3) Aspirin 325 mg 05/25/20 10:00 06/05/20 10:46 Aspirin 325 Mg Tab PO 325 mg QDAY FARZAD Administration Atorvastatin Calcium 40 mg 05/25/20 22:00 06/04/20 22:21 Atorvastatin 40 Mg Tab PO 40 mg QHS FARZAD Administration Baclofen 10 mg 05/28/20 20:00 06/05/20 09:30 Baclofen 10 Mg Tab PO 10 mg TID FARZAD Administration Bisacodyl 10 mg 05/24/20 22:27 Bisacodyl 10 Mg Rect Supp VT QDAY PRN Constipation Chlorpromazine HCl 75 mg 06/02/20 01:38 Chlorpromazine 25 Mg Tab PO BID PRN Hiccups Clopidogrel Bisulfate 75 mg 05/29/20 10:00 06/05/20 10:49 Clopidogrel 75 Mg Tab PO 75 mg QDAY FARZAD Administration Dextrose 0 ml 05/24/20 22:27 05/30/20 21:36 Dextrose 50% In Water (25gm) 50 Ml Syringe IV 15 ml Q30MIN PRN Administration Hypoglycemia Protocol Enoxaparin Sodium 40 mg 05/25/20 22:00 06/04/20 22:21 Enoxaparin 40 Mg/0.4 Ml Inj SUB-Q 40 mg QDAY@2200 FARZAD Administration Protocol Insulin Glargine 20 units 05/28/20 22:00 06/04/20 22:55 Insulin Glargine 100 Units/Ml SUB-Q 20 units QHS FARZAD Administration Insulin Human Lispro 0 unit 05/29/20 11:30 06/05/20 12:54 Insulin Lispro 100 Unit/Ml SUB-Q 6 unit ACHS FARZAD Administration Protocol Insulin Human Lispro 12 unit 06/01/20 08:26 06/05/20 12:55 Insulin Lispro 100 Unit/Ml SUB-Q 12 unit AC FARZAD Administration Magnesium Hydroxide 30 ml 05/24/20 22:27 Magnesium Hydroxide (Mom) Oral Liqd Udc PO Q4H PRN Constipation Metoclopramide HCl 10 mg 05/24/20 22:27 05/26/20 23:22 Metoclopramide 10 Mg Tab PO 10 mg Q6H PRN Administration Nausea And Vomiting Morphine Sulfate 2 mg 05/24/20 22:27 Morphine 2 Mg/1 Ml Inj IV Q4H PRN Pain, Moderate (4-6) Ondansetron HCl 4 mg 05/24/20 22:27 Ondansetron 4 Mg/2 Ml Inj IV Q8H PRN Nausea And Vomiting Pantoprazole Sodium 40 mg 05/28/20 16:30 06/05/20 09:30 Pantoprazole 40 Mg Tab PO 40 mg BIDAC FARZAD Administration Promethazine HCl 25 mg 05/24/20 22:27 Promethazine 25 Mg Rect Supp VT Q6H PRN Nausea And Vomiting Sodium Chloride 10 ml 05/25/20 10:00 06/05/20 10:46 Sodium Chloride 0.9% 10 Ml Flush Syringe IV 10 ml BID FARZAD Administration Sodium Chloride 10 ml 05/24/20 22:27 Sodium Chloride 0.9% 10 Ml Flush Syringe IV PRN PRN LINE FLUSH Nutrition/Malnutrition Assess - Dietary Evaluation Nutrition/Malnutrition Findings: Nutrition Notes Start: 05/25/20 11:32 Freq: Status: Active Protocol: Document 05/29/20 09:20 (Rec: 05/29/20 09:27 [id number]) Nutrition Notes Need for Assessment generated from: Education Initial or Follow up Brief Note Current Diagnosis Diabetes,Hypertension Other Pertinent Diagnosis COVID(+) Current Diet pureed, consistent CHO Subjective/Other Information MD order for diet education. Pt states he eats mostly fish and rice at home. Pt given portion size information. Encouraged pt to take medications. #1 Nutrition Diagnosis Limited adherence to nutrition -related recommendations Etiology unknown As Evidenced by Signs and Symptoms pt understands DM diet and A1c 13% Nutrition Intervention Teaching Recipient Patient Learning Readiness Good Teaching Methods Discussion,Handout Education Handouts Provided Planning Healthy Meals Barriers to Learning No Barriers RD phone number provided Yes Patient aware of follow up options Yes Revisit per MD consult or patient Sign Off request:
--- NOTE | 2020-06-05 13:02 | Discharge Summary ---
Providers - Providers Date of Admission: 05/26/20 11:07 Attending physician: MEGAN RAMACHANDRAN MD 05/24/20 22:27 Consult to Dietitian/Nutrition [CONS] Routine Physician Instructions: Reason For Exam: Reason for Consult: Diet education Consult to Dietitian/Nutrition [CONS] Routine Physician Instructions: Reason For Exam: Reason for Consult: Nutrition Recommendations Reason for Consult: Diet education Consult to Physician [CONS] Routine Comment: Consulting Provider: PARISH BHANDARI Physician Instructions: Reason For Exam: Slurred Speech, R/O CVA Occupational Therapy Evaluate and Treat [CONS] Routine Comment: Reason For Exam: Neuro deficits Physical Therapy Evaluation and Treat [CONS] Routine Comment: Reason For Exam: Neuro deficits 05/24/20 22:30 Speech Therapy Evaluation and Treat [CONS] Routine Reason For Exam: swallow eval 05/26/20 08:20 Consult to Physician [CONS] Routine Comment: Consulting Provider: PARISH BHANDARI Physician Instructions: Reason For Exam: Slurred Speech, R/O CVA 05/26/20 08:23 Consult to Physician [CONS] Routine Comment: Consulting Provider: ANIL MCELROY Physician Instructions: Reason For Exam: COVID 05/28/20 11:07 Consult to Dietitian/Nutrition [CONS] Routine Physician Instructions: Reason For Exam: Reason for Consult: Diet education 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 Last well-known time was about 6 PM today. Patient's family had noticed changes in his speech and therefore was brought to the emergency room. He denies any fever or chills no headache or dizziness no diaphoresis, no chest pain or shortness of breath, no nausea vomiting, no diarrhea,, no hematuria or dysuria. Patient complains of intermittent blurry vision. He denies any weakness. Patient denies any recent travel but had been exposed to his son who tested COVID-19 positive yesterday. Work-up in the emergency room so far has been unremarkable. Patient was evaluated by the neurologist and was deemed not to be a TPA candidate. Patient is being admitted for CVA work-up. 05/25. F/U MRI brain and carotid US. Cont. ASA and Lipitor. PT eval. follow-up Covid testing. Start dexamethasone empirically until Covid testing resulted. 05/26. Carotid ultrasound negative. Await MRI brain. Neurology consultation pending. Covid PCR testing on 05/25 is positive. 05/27/2020; CT head, carotid Doppler, echo unremarkable. MRI and EEG evaluation is pending. Patient is positive for Covid does not have any symptoms. She was evaluated by ID and no treatment is needed. Was evaluated by physical therapy recommend acute rehab. Disposition; acute rehab after neurology evaluation and MRI completed. 05/28; MRI was done; 1.5 x 0.7 cm subacute ischemic infarct in the right gangliocapsular region. Chronic focal infarcts in the right thalamus, genu of the right internal capsule, body of the left corpus callosum and left marc. No need for Covid treatment. Neurology evaluation is pending. PT evaluated and recommend subacute rehab. Blood sugar is uncontrolled, I added Lantus in addition to sliding scale insulin. Will check A1c. Neurology evaluated and recommend aspirin, and Plavix for 21 days. 05/29/20; patient was evaluated by neurology and recommend to continue current management. Patient was seen by ID and she is on dexamethasone. Hemoglobin A1c is 13.1. Continue with aspirin and Plavix. Evaluated by PT OT and recommended subacute stroke. 05/30/2020; acute CVA. Continue with aspirin and Plavix. Patient is pending acute rehab. Likely to be transferred to acute rehab on Tuesday. Discussed with case management. Will monitor his blood sugar level and adjust insulin as needed. 05/31/2020; will discharge to rehab on Tuesday. Patient agreed with the plan of care. Discussed with case management. Blood sugar is better controlled. Patient's hemoglobin A1c is 13 need insulin at discharge. 06/01/2020; patient will be discharged tomorrow to acute rehab. Discussed with case management. Patient need insulin adjustment at discharge. A1c is 13. 06/02: Findings on A1c of 13 discussed with the patient will need insulin on discharge. Extensive discussion with the patient and case management awaiting placement. We will also adjust insulin as blood sugar still elevated may need a repeat Covid test. Continue daily reevaluation of oxygen need 06/03: Continue supportive care, wean oxygen as tolerated. awaiting placement, continue Rehab in house. 06/04: Continue supportive care nursing staff aware of dietary recommendation. Also requesting at this time physical therapy daily evaluation until rehab facility is placed. Patient will need constant redirection. He does appear to be oriented x3 and simple questions but on deeper questions show some episodes of delirium. 06/05: Patient remains clinically stable still on 2 L of oxygen have requested a home O2 evaluation as there is plan for possible discharge home with home health and palliative care. Patient will continue to need physical therapy rehabilitation.. Dissipate that he is severely deconditioned at this time. Once arrangement is made patient can be discharged. He has a condom catheter which can be discontinued at the time. 06/06 Acute CVA. Hypertension DM type 2 COVID 19 PNA Oropharyngeal dysphagia Disposition: DC-50 TO HOSPICE (HOME) Final Discharge Diagnosis (Prints w/discharge instructions): Acute CVA Time spent for discharge: 35 minutes Core Measure Documentation - Palliative Care Palliative Care/ Comfort Measures: Not Applicable - Core Measures Any of the following diagnoses?: stroke - Stroke Discharge Requirements Statin for LDL = or >70 mg/dl on DC: Yes Anticoag for atrial fib/atrial flutter: Not Applicable Antithrombotic for ischemic stroke: Yes Exam - Physical Exam Narrative exam: Not in cardiopulmonary distress. Otherwise on oxygen 2 L still some intermittent confusion The patient appeared well nourished and normally developed. Vital signs as documented. Head exam is unremarkable. No scleral icterus . Neck is without jugular venous distension, thyromegaly, or carotid bruits. Lungs are clear to auscultation. Cardiac exam reveals regular rate and Rhythm. Abdominal exam reveals normal bowel sounds, nontender, no organomegaly. Extremities are nonedematous and both femoral and pedal pulses are normal. INSPECTOR WATCH PARTS: Alert and oriented 3 although with intermittent confusion. No focal weakness. - Constitutional Vitals: Temp Pulse Resp BP Pulse Ox 98.0 F 104 H 18 150/79 95 06/05/20 04:30 06/05/20 04:30 06/05/20 04:30 06/05/20 04:06/05/20 08:26 Plan Activity: advance as tolerated, fall precautions Diet: diabetic Special Instructions: record daily weights, record daily BP diary, physical therapy, occupational therapy, home health RN, other (Palliative care) Follow up with: JULIAN MENDEZ MD [Primary Care Provider] - 3-5 Days MAINE FRENCH MD [Staff Physician] - 7 Days Prescriptions: AtorvaSTATin [Lipitor] 40 mg PO QHS #30 tablet Aspirin [Adult Aspirin] 81 mg PO DAILY #30 tablet. Clopidogrel [Plavix] 75 mg PO QDAY #30 tablet Pantoprazole [Protonix TAB] 40 mg PO DAILY #30 tablet
[2020-06-05] MEDS: ENOXAPARIN 40 MG/0.4 ML INJ SUB-Q SCH (21:46)
[2020-06-05] MEDS: INSULIN GLARGINE 100 UNITS/ML SUB-Q SCH (23:40)
[2020-06-06 09:12] LABS: BUN/Creatinine Ratio 25; Blood Urea Nitrogen 28 mg/dL (9-20); Calcium 8.5 mg/dL (8.4-10.2); Hemolysis Index 20
[2020-06-06] MEDS: CLOPIDOGREL 75 MG TAB PO SCH (09:28)
[2020-06-06] MEDS: BACLOFEN 10 MG TAB PO SCH ×2 (09:28→13:01)
[2020-06-06] MEDS: INSULIN LISPRO 100 UNIT/ML SUB-Q SCH ×6 (09:28→17:54)
[2020-06-06] MEDS: PANTOPRAZOLE 40 MG TAB PO SCH ×2 (09:28→17:53)
[2020-06-06] MEDS: ASPIRIN 325 MG TAB PO SCH (09:28)
--- NOTE | 2020-06-06 13:57 | Electrocardiograph Report ---
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
[2020-06-06 21:00] VITALS: BP 143/85
== END 2020-06-06 20:50 | disposition hospice, home (50) | DRG 64 ==
LOC: ED 19:30 → 3A 21:59 → OBSVTOIN 05-26 11:07
PROVIDERS: ADMIT Internal Medicine Geriatric Medicine; ATTEND Internal Medicine
DX: I63.9 Cerebral infarction, unspecified (principal); U07.1 COVID-19; J12.82 Pneumonia due to coronavirus disease 2019; I10 Essential (primary) hypertension; E11.9 Type 2 diabetes mellitus without complications; R13.12 Dysphagia, oropharyngeal phase; R29.701 NIHSS score 1; Z79.899 Other long term (current) drug therapy; Z79.82 Long term (current) use of aspirin; Z79.84 Long term (current) use of oral hypoglycemic drugs
CPT/HCPCS: 36415; 70450; 70551; 80048; 80061; 81001; 82550; 82553; 82947; 82962; 83036; 83735; 84484; 85007; 85025; 85610; 85670; 85730; 93005; 93306; 93880; 96374; 97129; G0378; A9270-GY; J1100; J1650; J1815; J8540; U0003